=== PATIENT | female | born 1980 | race Caucasian/White ===

== ENCOUNTER → 2016-05-13 | Outpatient (CLI) | payer MEDICARE ==
[~2016-05-13] VITALS: Ht 160 cm; Wt 65.8 kg
[~2016-05-13] MED LIST: D 1010004 PO; DEXI30CA PO; DEXI60CA PO; MELO15TA4 PO; MELO7.5T6 PO; PLAQUENAL OR; PLAQUENIL OR; PROPOFOL 200 MG/20 ML VIAL As Ordered ONE; TIZA2CAP3 PO; TIZA4CAP3 PO; TOPA50TA7 PO; [UNRECOGNIZED DRUG - CODE] PO
[2016-05-13] MEDS: NS 1,000 ML IV SCH ×2 (13:30→13:46)
--- NOTE | 2016-05-13 14:39 | ROOR ---
Patient Name: Tessa Bernard Procedure Date: 05/13/2016 2:22 PM Date of : 1980 Age: 35 Room: M OPP Gender: Female Note Status: Finalized Procedure: Upper GI endoscopy Indications: Nausea Providers: Babatunde LOCKE MD Referring MD: Link Garcia MD Requesting Provider: Medicines: Monitored Anesthesia Care Complications: No immediate complications. Procedure: Pre-Anesthesia Assessment: - The heart rate, respiratory rate, oxygen saturations, blood pressure, adequacy of pulmonary ventilation, and response to care were monitored throughout the procedure. The Endoscope was introduced through the mouth, and advanced to the second part of duodenum. The upper GI endoscopy was accomplished without difficulty. The patient tolerated the procedure well. Findings: The esophagus was normal. The stomach was normal. The examined duodenum was normal. Impression: - Normal esophagus. - Normal stomach. - Normal examined duodenum. - No specimens collected. Recommendation: - for nausea, consider trial on a antihistamine: Benadryl 25 to 50 mg at bedtime. Babatunde Locke MD Babatunde LOCKE MD 05/13/2016 2:39:30 PM This report has been signed electronically. Number of Addenda: 0 Note Initiated On: 05/13/2016 2:22 PM Estimated Blood Loss: Estimated blood loss: none.
--- NOTE | 2016-05-13 14:58 | ROOR ---
Patient Name: Tessa Bernard Procedure Date: 05/13/2016 2:23 PM Date of : 1980 Age: 35 Room: [facility] Gender: Female Note Status: Finalized Procedure: Colonoscopy Indications: Family history of colon cancer in multiple second-degree relatives, Weight loss Providers: Babatunde LOCKE MD Referring MD: Link Garcia MD Requesting Provider: Medicines: Monitored Anesthesia Care Complications: No immediate complications. Procedure: Pre-Anesthesia Assessment: - The heart rate, respiratory rate, oxygen saturations, blood pressure, adequacy of pulmonary ventilation, and response to care were monitored throughout the procedure. The Colonoscope was introduced through the anus and advanced to the cecum, identified by appendiceal orifice and ileocecal valve. The colonoscopy was performed without difficulty. The patient tolerated the procedure well. The quality of the bowel preparation was good. Findings: The perianal and digital rectal examinations were normal. (Exam: Complete, Prep: Good or Excellent.) Small Internal Hemorrhoids. The entire examined colon appeared normal on direct and retroflexion views. Impression: - (Exam: Complete, Prep: Good or Excellent.) - Small Internal Hemorrhoids. - The entire examined colon is normal on direct and retroflexion views. - No specimens collected. Recommendation: - Repeat colonoscopy at age [age] years old. Babatunde Locke MD Babatunde LOCKE MD 05/13/2016 2:57:53 PM This report has been signed electronically. Number of Addenda: 0 Note Initiated On: 05/13/2016 2:23 PM Estimated Blood Loss: Estimated blood loss: none.
[2016-05-13 15:17] VITALS: BP 118/69
== END ==
LOC: M OPP 12:59
PROVIDERS: ATTEND Internal Medicine Gastroenterology
DX: Z12.11 Encounter for screening for malignant neoplasm of colon (principal); Z80.0 Family history of malignant neoplasm of digestive organs; K64.0 First degree hemorrhoids; R63.4 Abnormal weight loss; R12 Heartburn; R11.2 Nausea with vomiting, unspecified; M32.9 Systemic lupus erythematosus, unspecified; G43.909 Migraine, unspecified, not intractable, without status migrainosus; K21.9 Gastro-esophageal reflux disease without esophagitis; Z86.018 Personal history of other benign neoplasm; Z88.8 Allergy status to other drugs, medicaments and biological substances; Z79.1 Long term (current) use of non-steroidal anti-inflammatories (NSAID); Z79.899 Other long term (current) drug therapy; Z80.42 Family history of malignant neoplasm of prostate; F17.200 Nicotine dependence, unspecified, uncomplicated
CPT/HCPCS: 43235; G0105

== ENCOUNTER → 2016-07-14 | Outpatient (REF) | payer MEDICARE, MEDICAID ==
[~2016-07-14] MED LIST changes: -PROPOFOL 200 MG/20 ML VIAL As Ordered ONE
[2016-07-14 13:49] LABS: BASO % 0.6 % (0.0-1.0); EOS # 0.3 K/mm3 (0.0-0.50); EOS % 3.2 % (0.0-3.0); LARGE UNSTAINED CELL # 0.1 K/mm3 (0.0-0.4); LARGE UNSTAINED CELL % 1.5 % (0.0-4.0); LYMPH # 1.6 K/mm3 (1.5-4.5); LYMPH % 16.7 % (24.0-44.0); MEAN CORPUSCULAR HGB CONC 33.1 g/dl (32.0-36.5); MEAN CORPUSCULAR VOLUME 84.6 fl (80.0-96.0); MONO # 0.5 K/mm3 (0.0-0.8); MONO % 5.7 % (0.0-5.0); NEUTROPHILS # 6.2 K/mm3 (1.8-7.7); NEUTROPHILS % 72.3 % (36.0-66.0); PLATELET COUNT, AUTOMATED 231 k/mm3 (150-450); RED CELL DISTRIBUTION WIDTH 13.2 % (11.5-14.5); WHITE BLOOD COUNT 8.6 K/mm3 (4.0-10.0)
[2016-07-14 14:00] LABS: ALBUMIN 3.8 GM/DL (3.2-5.2); ALBUMIN/GLOBULIN RATIO 1.36 (1.00-1.93); ALKALINE PHOSPHATASE 54 U/L (45-117); ALT/SGPT 15 U/L (12-78); ANION GAP 10 MEQ/L (8-16); AST/SGOT 10 U/L (15-37); BILIRUBIN,TOTAL 0.4 MG/DL (0.2-1.0); BLOOD UREA NITROGEN 17 MG/DL (7-18); CALCIUM LEVEL 8.9 MG/DL (8.5-10.1); CARBON DIOXIDE LEVEL 24 MEQ/L (21-32); CHLORIDE LEVEL 109 MEQ/L (98-107); CREATININE FOR GFR 0.86 MG/DL (0.55-1.02); GLOMERULAR FILTRATION RATE > 60.0 (>60); GLUCOSE, FASTING 64 MG/DL (70-105); POTASSIUM SERUM 3.8 MEQ/L (3.5-5.1); SODIUM LEVEL 143 MEQ/L (136-145); TOTAL PROTEIN 6.6 GM/DL (6.4-8.2)
[2016-07-14 14:52] LABS: ERYTHROCYTE SEDIMENTATION RATE 3 mm/hr (0-20)
== END ==
LOC: M SFHCPLAZ 10:58
PROVIDERS: ATTEND Family Medicine
DX: M32.9 Systemic lupus erythematosus, unspecified (principal)
CPT/HCPCS: 36415; 80053; 85025; 85652; 86140; G0463

== ENCOUNTER 2016-08-20 23:11 | Observation (INO) | payer MEDICAID, MEDICARE ==
[~2016-08-20] VITALS: Ht 162.6 cm; Wt 68.0 kg
[2016-08-20] MEDS ORDERED: CEPH500C (23:38)
[2016-08-20] MEDS ORDERED: HYDR200T3 (23:38)
[2016-08-20] MEDS ORDERED: HYDR-3713 (23:38)
[2016-08-21] MEDS ORDERED: GI COCKTAIL 50ML BTL(HYOSCYAMINE/MAALOX/LIDOCAINE VISCOUS)(1:3:1) PO ONE (01:00)
[2016-08-21 01:23] LABS: CONTROL LINE HCG INT CTR LINE PRESENT
[2016-08-21 01:26] LABS: BASO # 0.1 K/mm3 (0.0-0.2); EOS # 0.6 K/mm3 (0.0-0.50); EOS % 7.6 % (0.0-3.0); LARGE UNSTAINED CELL # 0.2 K/mm3 (0.0-0.4); LYMPH # 2.6 K/mm3 (1.5-4.5); LYMPH % 31.6 % (24.0-44.0); MEAN CORPUSCULAR HEMOGLOBIN 27.3 pg (27.0-33.0); MEAN CORPUSCULAR HGB CONC 32.8 g/dl (32.0-36.5); MEAN CORPUSCULAR VOLUME 83.2 fl (80.0-96.0); MONO # 0.5 K/mm3 (0.0-0.8); MONO % 6.3 % (0.0-5.0); NEUTROPHILS % 51.5 % (36.0-66.0); PLATELET COUNT, AUTOMATED 243 k/mm3 (150-450); WHITE BLOOD COUNT 7.8 K/mm3 (4.0-10.0)
[2016-08-21 01:32] LABS: ANION GAP 7 MEQ/L (8-16); BLOOD UREA NITROGEN 17 MG/DL (7-18); CALCIUM LEVEL 8.8 MG/DL (8.5-10.1); CARBON DIOXIDE LEVEL 26 MEQ/L (21-32); CHLORIDE LEVEL 107 MEQ/L (98-107); CREATININE FOR GFR 0.87 MG/DL (0.55-1.02); GLOMERULAR FILTRATION RATE > 60.0 (>60); GLUCOSE, FASTING 87 MG/DL (70-105); POTASSIUM SERUM 4.2 MEQ/L (3.5-5.1); SODIUM LEVEL 140 MEQ/L (136-145)
--- NOTE | 2016-08-21 02:25 | REP ---
Clinical: Chest pain . Comparison: None . Technique: PA and lateral. Findings: The mediastinum and cardiac silhouette are normal. The lung wong are clear and without acute consolidation, effusion, or pneumothorax. The skeletal structures are intact and normal. Impression: 1. No acute cardiopulmonary process. Signed by Chaim Adrian MD 08/21/2016 02:16 A
[2016-08-21] MEDS ORDERED: MORPHINE 4 MG/ML 1ML SYRINGE IV PRN (02:30)
[2016-08-21] MEDS ORDERED: ONDANSETRON 4MG/2ML VIAL (J2405) IV ONE (02:30)
[2016-08-21] MEDS ORDERED: ASPIRIN 81 MG CHEW TABLET PO ONE (02:30)
[2016-08-21] MEDS ORDERED: KETOROLAC 30 MG/ML VIAL (J1885) IV ONE (03:15)
[2016-08-21] MEDS ORDERED: NITROGLYCERIN 0.4 MG SUBL TABLET SL PRN (03:15)
[2016-08-21] MEDS ORDERED: ISOVUE-370 76% 100ML VIAL (Q9967) As Ordered ONE (03:35)
[2016-08-21] MEDS: HYDROmorphone HCL 1 MG/ML SYRINGE (J1170) IV PRN ×2 (03:39→08:25)
--- NOTE | 2016-08-21 04:20 | REPUSA ---
CLINICAL HISTORY: Dyspnea, exclude PE. TECHNIQUE: Multiple incremental axial, coronal and oblique images are obtained from the thoracic inle t to the upper abdomen. Intravenous contrast material was administered as per pulmonary embolism prot ocol. COMMENTS: There is excellent opacification of pulmonary arterial system without evidence for pulmonary embolism . Aorta is of normal caliber without evidence for dissection or aneurysm. Bilateral basilar atelectatic pulmonary changes. There is no evidence of pleural or parenchymal mass. There are no pleural effusions. There is no evid ence of hilar or mediastinal lymphadenopathy. The heart and great vessels are within normal limits. Images of the upper abdomen demonstrate no evidence of adrenal mass. The bony structures are free of lytic or blastic lesions. Multilevel degenerative changes are seen in volving the visualized thoracolumbar spine. Scattered calcifications are seen involving the aorta and major branches compatible with atherosclero sis. IMPRESSION: No evidence for pulmonary embolism. Bilateral basilar atelectatic pulmonary changes. Thank you for your kind referral of this patient.
--- NOTE | 2016-08-21 04:30 | REPUSA ---
CLINICAL HISTORY: Abdominal pain. TECHNIQUE: Multiple axial, sagittal and coronal CT images were obtained through the abdomen and pelvi s after administration of intravenous contrast material. COMMENTS: Fluid filled small bowels. 1.3 cm enhancing lesion in the right hepatic lobe. Probably a hemangioma. The remaining liver is of uniform attenuation without mass or defect. There is no intra or extrahepat ic biliary ductal dilatation. The spleen is normal. The gallbladder is surgically absent. The pancrea s is of normal contour and attenuation characteristics. There is no evidence of adrenal mass. Both kidneys demonstrate prompt and equal nephrograms. The kidneys are normal in size, shape and conf iguration. There is no evidence of renal or ureteral mass. No renal or ureteral calculi are identifie d. There is no hydroureter or hydronephrosis. No evidence for appendicitis. There is no bowel wall thickening. No evidence for small or large reyna l obstruction. There is no evidence of abdominal ascites or lymphadenopathy. There is no evidence of intrinsic or extrinsic bladder mass. There is no pelvic ascites or lymphadeno marty. Multiple uterine fibroids are noted with the largest measuring 2.6 cm. Left ovarian cysts with the largest measuring 3.2 cm. Images of the lung bases show no evidence of pleural or parenchymal mass. There are no pleural effusi ons. Bilateral basilar atelectatic pulmonary changes. The bony structures are free of lytic or blastic lesions. Multilevel degenerative changes are seen in volving the thoracolumbar spine. Scattered calcifications are seen involving the aorta and major bran ches compatible with atherosclerosis. IMPRESSION: Prior cholecystectomy. Left ovarian cysts. Multiple uterine fibroids. Fluid-filled small bowel suggestive of enteritis. Bilateral basilar atelectatic pulmonary changes. Thank you for your kind referral of this patient.
[2016-08-21] MEDS ORDERED: NORCO, ANEXSIA 5/325MG TABLET (HYDROcodone/ACETAMINOPHEN) PO ONE (07:00)
[2016-08-21] MEDS ORDERED: HYDROmorphone HCL 1 MG/ML SYRINGE (J1170) IV PRN (08:30)
[2016-08-21] MEDS ORDERED: ONDANSETRON 4 MG TAB (S0181) PO PRN (08:30)
--- NOTE | 2016-08-21 08:45 | ECGEPIP ---
Stationary ECG Study [facility] - ED Test Date: 2016-08-20 Pat Name: TOMY MONROY Department: Room: - Gender: F [employer]iculture Teacher: diego : 1980 Requested By: YECENIA Ann Order Number: [id number] Reading MD: Jenn Maddox Measurements Intervals [place] Rate: 62 P: 37 VA: 156 QRS: 80 QRSD: 79 T: 45 QT: 414 QTc: 421 Interpretive Statements SINUS RHYTHM NO PRIOR FOR COMPARISON Electronically Signed On 08-21-2016 8:45:03 EDT by Jenn Maddox
[2016-08-21] MEDS ORDERED: TOPA50TA7 PO (08:52)
[2016-08-21] MEDS ORDERED: NORC1TAB4 PO (08:52)
[2016-08-21] MEDS ORDERED: TIZA2TA PO (08:52)
[2016-08-21] MEDS ORDERED: HYDR200T3 PO (08:52)
[2016-08-21] MEDS ORDERED: VITA500055 PO (08:52)
[2016-08-21] MEDS ORDERED: TYLE325T5 PO (08:52)
[2016-08-21] MEDS ORDERED: MELO15TA4 PO (08:52)
[2016-08-21] MEDS ORDERED: DEXI60CA PO (08:52)
[2016-08-21] MEDS ORDERED: [UNRECOGNIZED DRUG - CODE] TOP (08:54)
[2016-08-21] MEDS: PANTOPRAZOLE 40MG TAB (PROTONIX) PO SCH (09:24)
[2016-08-21] MEDS ORDERED: ACETAMINOPHEN 325 MG TAB As Ordered ONE (12:26)
[2016-08-21] MEDS: ACETAMINOPHEN 500 MG TAB PO PRN ×2 (12:29→18:50)
[2016-08-21 14:15] VITALS: BP 130/78
[2016-08-21 16:00] VITALS: BP 137/81
--- NOTE | 2016-08-21 16:14 | HPEPDOC ---
General Date of Admission Aug 21, 2016 at 08:17 Primary Care Physician: Link Garcia M.D. Attending Physician: CORRINA ALBERTS MD Chief Complaint The patient is a 35-year-old female admitted with a reason for visit of Intractable Abdominal Pain. Source: Patient Exam Limitations: No limitations Timing/Duration: 4-6 hours Severity: Moderate (6/10) Associated Symptoms: Nausea History of Present Illness Ms. Bernard is a 35 year-old woman with a history of Lupus and GERD who presented to the ED yesterday evening with sharp left chest pain. She states pain started suddenly at 9:30 pm while she was sitting on the cough watching TV. It was accompanied by left arm tingling and numbness; she denies any associated SOB or diaphoresis. She presented to the ED where she received a GI cocktail that did not help her pain. The ED physician reported to me that she had some chest tenderness to palpation. She was then given a 2 mg dose of morphine, which she states reduced her chest pain from a 6/10 to a 2/10. However, shortly thereafter she developed severe upper abdominal pain that is sharp and stabbing nature, and was accompanied by nausea. She denies any abdominal complaints prior to this. She denies vomiting or diarrhea. She has one formed bowel movement daily and denies any recent blood in stool or black tarry stools. She had an EGD in 05/2016 that was normal. Pain improved with a dose of dilaudid but did not go away completely. She denies loss of appetite. She takes vicodin at home infrequently for migraines and back pain; she states she takes this once every few months. She denies any sick contacts. At the time of my exam, her chest pain had resolved completely. Home Medications Scheduled (Dexilant) 60 Mg Cap 60 MG PO QHS (Reported) Cholecalciferol (Vitamin D3) 5,000 Unit Tab 5,000 UNIT PO DAILY (Reported) Hydroxychloroquine Sulfate (Hydroxychloroquine Sulfat) 200 Mg Tab 200 MG PO BID (Reported) Meloxicam (Meloxicam) 15 Mg Tab 15 MG PO DAILY (Reported) Tizanidine HCl (Tizanidine HCl) 2 Mg Tab 2 MG PO TID (Reported) Topiramate (Topamax) 50 Mg Tab 50 MG PO BID (Reported) Scheduled PRN Acetaminophen (Tylenol) 325 Mg Tab 650 MG PO Q4H PRN PRN PAIN (Reported) Acetaminophen/Hydrocodone ([place] 5-325 mg) 1 Tab Tab 1 TAB PO Q6H PRN PRN PAIN ( Reported) Mometasone Furoate ([place]) 0.1 % Cre 0.1 % TOP BID PRN PRN RASH (Reported) Allergies Coded Allergies: Prochlorperazine (Unverified Adverse Reaction, Unknown, RASH, 08/20/16) Past Medical History Medical History 1. SLE an Sjogren's syndrome 2. GERD and hiatal hernia seen on EGD 10/2015; negative EGD 05/2016 3. Migraine headaches 4. History of left acoustic neuroma 5. History of dense right eye amblyopia 6. History of Tobacco use disorder, quit 07/2016 7. Liver hemangiomae 8. Cervical, thoracic, lumbar DJD Surgical History 1. Resection of acoustic neuroma, ~2011 2. Cholecystectomy ~2011 3. Eye muscle resection x2 4. EGD/colonoscopy normal 05/2016 Family History Significant Family History: Diabetes (father), Other (thalassemia in father) Social History * Smoker: former Smoker, quit less than 1 year Alcohol: occationally (2-3 drinks per sitting, 1-2 times per month) Drugs: denies Recent Travel/Sick Contacts: Denies: Recent sick contacts, Recent travel Psychosocial History: No pertinent psych hx Review of Symptoms Constitutional: Reports: Fatigue, Denies: Chills, Fever, Malaise Eyes: Denies: Pain, Vision change ENT: Denies: Ear Pain, Head Aches Skin: Denies: Rash Pulmonary: Denies: Cough, Dyspnea Cardiovascular: Denies: Chest Pain, Lt Headedness, Orthopnea, Palpitations Gastrointestinal: Reports: Abdominal Pain, Nausea, Denies: Constipation, Diarrhea, Vomiting Genitourinary: Denies: Dysuria, Frequency Hematologic: Denies: Bleeding Excessively, Bruising Musculoskeletal: Reports: Back Pain (chronic) Neurological: Denies: Change in speech, Confusion, Numbness, Weakness Psych: Reports: Mood Normal Physical Examination General Exam: Positive: Alert, Cooperative, No Acute Distress Eye Exam: Positive: Conjunctiva & lids normal, Other Eye Symptoms (right eye exotropia) ENT Exam: Positive: Atraumatic, Mucous membr. moist/pink Neck Exam: Positive: Supple, Negative: JVD Chest Exam: Positive: Clear to auscultation, Normal air movement Heart Exam: Positive: Normal S1, Normal S2, Rate Normal, Regular Rhythm, Negative: Murmurs Abdomen Exam: Positive: Normal bowel sounds, Soft, Tenderness (diffuse tenderness across entire upper abdomen; no rebound, no guarding), Negative: Hepatospenomegaly, Mass Extremity Exam: Negative: Clubbing, Cyanosis, Edema Skin Exam: Negative: Nl turgor and temperature, Rash Neuro Exam: Positive: Normal Speech, Normal Tone, Sensation Intact, Strength at 5/5 X4 ext, Negative: Cranial Nerves 3-12 NL (left mouth droop which is chronic per patient) Psych Exam: Positive: Mental status NL, Mood NL Vital Signs Vital Signs Date Time Temp Pulse Resp B/P Pulse Ox O2 Delivery O2 Flow Rate FiO2 08/21/16 14:15 98.0 69 18 130/78 99 Room Air Laboratory Data Labs 24H Laboratory Tests 2 08/21/16 00:47: Anion Gap 7L, White Blood Count 7.8, Red Blood Count 4.90, Hemoglobin 13.4, Hematocrit 40.8, Mean Corpuscular Volume 83.2, Mean Corpuscular Hemoglobin 27.3 , Mean Corpuscular Hemoglobin Concent 32.8, Red Cell Distribution Width 13.0, Platelet Count 243, Neutrophils (%) (Auto) 51.5, Lymphocytes (%) (Auto) 31.6, Monocytes (%) (Auto) 6.3H, Eosinophils (%) (Auto) 7.6H, Basophils (%) (Auto) 1.0 , Neutrophils # (Auto) 4.0, Lymphocytes # (Auto) 2.6, Monocytes # (Auto) 0.5, Eosinophils # (Auto) 0.6H, Basophils # (Auto) 0.1, Blood Urea Nitrogen 17, Creatinine 0.87, Sodium Level 140, Potassium Level 4.2, Chloride Level 107, Carbon Dioxide Level 26, Calcium Level 8.8, Total Creatine Kinase 116, Creatine Kinase MB 1.0, Creatine Kinase MB Relative Index 0.86, Glomerular Filtration Rate > 60.0, Human Chorionic Gonadotropin, Qual NEGATIVE, Large Unclassified Cells # 0.2, Large Unclassified Cells % 2.0, Lipase 221, Troponin I < 0.02 08/21/16 05:02: Total Creatine Kinase 90, Creatine Kinase MB 1.0, Creatine Kinase MB Relative Index 1.11, Troponin I < 0.02 CBC/BMP Laboratory Tests 08/21/16 00:47 Calcium Level 8.8, Total Creatine Kinase 116, Red Blood Count 4.90, Mean Corpuscular Volume 83.2, Mean Corpuscular Hemoglobin 27.3, Mean Corpuscular Hemoglobin Concent 32.8, Red Cell Distribution Width 13.0, Neutrophils (%) (Auto ) 51.5, Lymphocytes (%) (Auto) 31.6, Monocytes (%) (Auto) 6.3 H, Eosinophils (% ) (Auto) 7.6 H, Basophils (%) (Auto) 1.0, Neutrophils # (Auto) 4.0, Lymphocytes # (Auto) 2.6, Monocytes # (Auto) 0.5, Eosinophils # (Auto) 0.6 H, Basophils # ( Auto) 0.1 RAD Interpretation STUDY: CT abdomen/pelvis Rad Actions: Report Reviewed RAD Interpretation: Normal Problems (1) Intractable abdominal pain Status: Acute Problem Specific Plan: Monitor Clinically Problem Text: Etiology of pain is uncertain. CT scan of A/P unremarkable except for "Fluid-filled small bowel suggestive of enteritis". Lab workup, including CMP and lipase was normal. Given timing of pain onset directly after receiving morphine, it is possible that this is a drug reaction, in which case I would recommend that we try to avoid opioids. - Allow regular diet as tolerated - Encouraged good fluid hydration - Monitor and recheck labs in the morning. - Hold meloxicam - Acetaminophen for pain (2) Chest pain Status: Resolved Problem Text: Pain resolved while in the ED. EKG and cardiac enzymes x2 were normal. (3) SLE (systemic lupus erythematosus) Status: Chronic Problem Specific Plan: Monitor Clinically Problem Text: Continue home plaquenil. (4) GERD (gastroesophageal reflux disease) Status: Chronic Problem Specific Plan: Monitor Clinically Problem Text: Give protonix 40 [address] PO daily in place of home dexilant. - Note, EGD performed 05/2016 was normal; previous EGD done 10/2015 showed evidence of GERD (5) Migraine Status: Chronic Problem Specific Plan: Monitor Clinically (6) Degenerative joint disease (DJD) of lumbar spine Status: Chronic (7) History of acoustic neuroma Status: Chronic Plan / VTE VTE Prophylaxis Ordered?: Yes (SCD/TEDs) CORRINA ALBERTS MD Aug 21, 2016 16:14
[2016-08-21 19:45] VITALS: BP 108/75
[2016-08-21] MEDS: tiZANidine 4 MG TAB PO SCH (20:33)
[2016-08-21] MEDS: TOPIRAMATE (TopAMAX) 25 MG TAB PO SCH (20:33)
[2016-08-21] MEDS: HYDROXYCHLOROQUINE 200 MG TAB PO SCH (20:33)
[2016-08-22 05:00] VITALS: BP 99/54
[2016-08-22] MEDS: ACETAMINOPHEN 500 MG TAB PO PRN (05:13)
[2016-08-22 07:38] LABS: BASO # 0.1 K/mm3 (0.0-0.2); BASO % 1.4 % (0.0-1.0); EOS # 0.4 K/mm3 (0.0-0.50); EOS % 7.8 % (0.0-3.0); LARGE UNSTAINED CELL # 0.1 K/mm3 (0.0-0.4); LARGE UNSTAINED CELL % 2.3 % (0.0-4.0); LYMPH # 1.5 K/mm3 (1.5-4.5); LYMPH % 24.5 % (24.0-44.0); MEAN CORPUSCULAR HEMOGLOBIN 27.2 pg (27.0-33.0); MEAN CORPUSCULAR HGB CONC 32.3 g/dl (32.0-36.5); MEAN CORPUSCULAR VOLUME 84.1 fl (80.0-96.0); MONO # 0.4 K/mm3 (0.0-0.8); NEUTROPHILS # 3.1 K/mm3 (1.8-7.7); PLATELET COUNT, AUTOMATED 239 k/mm3 (150-450); RED CELL DISTRIBUTION WIDTH 13.1 % (11.5-14.5); WHITE BLOOD COUNT 5.5 K/mm3 (4.0-10.0)
[2016-08-22 08:00] VITALS: BP 115/77
[2016-08-22 08:04] LABS: ALBUMIN 3.3 GM/DL (3.2-5.2); ALBUMIN/GLOBULIN RATIO 1.18 (1.00-1.93); ALKALINE PHOSPHATASE 63 U/L (45-117); ALT/SGPT 107 U/L (12-78); ANION GAP 6 MEQ/L (8-16); AST/SGOT 38 U/L (15-37); BILIRUBIN,TOTAL 0.5 MG/DL (0.2-1.0); BLOOD UREA NITROGEN 15 MG/DL (7-18); CALCIUM LEVEL 8.1 MG/DL (8.5-10.1); CARBON DIOXIDE LEVEL 24 MEQ/L (21-32); CHLORIDE LEVEL 110 MEQ/L (98-107); CREATININE FOR GFR 0.89 MG/DL (0.55-1.02); GLOMERULAR FILTRATION RATE > 60.0 (>60); GLUCOSE, FASTING 98 MG/DL (70-105); POTASSIUM SERUM 4.1 MEQ/L (3.5-5.1); SODIUM LEVEL 140 MEQ/L (136-145); TOTAL PROTEIN 6.1 GM/DL (6.4-8.2)
[2016-08-22] MEDS: PANTOPRAZOLE 40MG TAB (PROTONIX) PO SCH (08:39)
[2016-08-22] MEDS: TOPIRAMATE (TopAMAX) 25 MG TAB PO SCH (08:40)
[2016-08-22] MEDS: HYDROXYCHLOROQUINE 200 MG TAB PO SCH (08:40)
[2016-08-22] MEDS: tiZANidine 4 MG TAB PO SCH (08:41)
== END 2016-08-22 09:10 | disposition home or self-care (01) ==
LOC: M ED 23:14 → M PED 23:15 → M ED 08-21 00:27 → UNDOADMOB 08-21 08:17 → M ED INP 08-21 08:17 → M ED 08-21 14:02 → M ED INP 08-21 14:08 → M PED 08-21 14:08 → UNDODISOB 08-22 09:10
PROVIDERS: ADMIT Family Medicine; ATTEND Family Medicine
DX: R10.11 Right upper quadrant pain (principal); R07.9 Chest pain, unspecified; M32.10 Systemic lupus erythematosus, organ or system involvement unspecified; K21.9 Gastro-esophageal reflux disease without esophagitis; Z87.891 Personal history of nicotine dependence; Z79.899 Other long term (current) drug therapy
CPT/HCPCS: 36415; 71020; 71275; 74177; 80048; 80053; 82550; 82553; 83690; 84484; 84703; 85025; 93005; 93041; 94760; 96374; 96375; 96376; 99285; G0378; J1170; J1885; J2405; Q9967

== ENCOUNTER → 2016-08-28 | Outpatient (REF) | payer MEDICARE, MEDICAID ==
[~2016-08-28] MED LIST changes: +CEPH500C; +HYDR-3713; +HYDR200T3; +HYDR200T3 PO; +NORC1TAB4 PO; +TIZA2TA PO; +TYLE325T5 PO; +VITA500055 PO; +[UNRECOGNIZED DRUG - CODE] TOP
[2016-08-28 13:37] LABS: BASO # 0.1 K/mm3 (0.0-0.2); BASO % 1.3 % (0.0-1.0); EOS # 0.2 K/mm3 (0.0-0.50); EOS % 3.8 % (0.0-3.0); LARGE UNSTAINED CELL # 0.1 K/mm3 (0.0-0.4); LARGE UNSTAINED CELL % 1.6 % (0.0-4.0); LYMPH # 1.2 K/mm3 (1.5-4.5); LYMPH % 18.7 % (24.0-44.0); MEAN CORPUSCULAR HGB CONC 32.9 g/dl (32.0-36.5); MEAN CORPUSCULAR VOLUME 85.2 fl (80.0-96.0); MONO # 0.4 K/mm3 (0.0-0.8); MONO % 6.4 % (0.0-5.0); NEUTROPHILS # 4.5 K/mm3 (1.8-7.7); NEUTROPHILS % 68.2 % (36.0-66.0); PLATELET COUNT, AUTOMATED 272 k/mm3 (150-450); WHITE BLOOD COUNT 6.5 K/mm3 (4.0-10.0)
[2016-08-28 14:21] LABS: ALBUMIN 3.9 GM/DL (3.2-5.2); ALBUMIN/GLOBULIN RATIO 1.26 (1.00-1.93); ALKALINE PHOSPHATASE 57 U/L (45-117); ALT/SGPT 35 U/L (12-78); AST/SGOT 10 U/L (15-37); BILIRUBIN,DIRECT 0.1 MG/DL (0.0-0.2); BILIRUBIN,TOTAL 0.4 MG/DL (0.2-1.0)
[2016-09-01 10:11] LABS: HEPATITIS C QUANTITATION HCV Not Detected IU/mL (.)
== END ==
LOC: M SFHCPLAZ 11:04
PROVIDERS: ATTEND Physician Assistant Medical
DX: K52.9 Noninfective gastroenteritis and colitis, unspecified (principal)

== ENCOUNTER → 2016-09-11 | Outpatient (REF) | payer MEDICARE, MEDICAID | LOC: M SFHCPLAZ 11:21 | PROVIDERS: ATTEND Physician Assistant Medical | DX: K52.9 Noninfective gastroenteritis and colitis, unspecified (principal) | CPT/HCPCS: 86709; G0463 ==

== ENCOUNTER → 2016-10-21 | Outpatient (REF) | payer MEDICARE, MEDICAID ==
[2016-10-21 14:56] LABS: BASO # 0.1 K/mm3 (0.0-0.2); EOS # 0.3 K/mm3 (0.0-0.50); EOS % 4.6 % (0.0-3.0); LARGE UNSTAINED CELL # 0.1 K/mm3 (0.0-0.4); LARGE UNSTAINED CELL % 1.9 % (0.0-4.0); LYMPH # 1.4 K/mm3 (1.5-4.5); LYMPH % 21.3 % (24.0-44.0); MEAN CORPUSCULAR HEMOGLOBIN 27.5 pg (27.0-33.0); MEAN CORPUSCULAR HGB CONC 32.4 g/dl (32.0-36.5); MEAN CORPUSCULAR VOLUME 84.8 fl (80.0-96.0); MONO # 0.4 K/mm3 (0.0-0.8); MONO % 5.8 % (0.0-5.0); NEUTROPHILS # 3.9 K/mm3 (1.8-7.7); NEUTROPHILS % 65.4 % (36.0-66.0); PLATELET COUNT, AUTOMATED 260 k/mm3 (150-450); RED CELL DISTRIBUTION WIDTH 13.3 % (11.5-14.5)
[2016-10-21 15:05] LABS: ANION GAP 5 MEQ/L (8-16); BLOOD UREA NITROGEN 14 MG/DL (7-18); CALCIUM LEVEL 8.8 MG/DL (8.5-10.1); CARBON DIOXIDE LEVEL 25 MEQ/L (21-32); CHLORIDE LEVEL 111 MEQ/L (98-107); GLOMERULAR FILTRATION RATE > 60.0 (>60); GLUCOSE, FASTING 87 MG/DL (70-105); POTASSIUM SERUM 4.5 MEQ/L (3.5-5.1); SODIUM LEVEL 141 MEQ/L (136-145)
== END ==
LOC: M SFHCPLAZ 09:38
PROVIDERS: ATTEND Physician Assistant Medical
DX: B34.9 Viral infection, unspecified (principal)

== ENCOUNTER 2016-10-29 01:18 | Emergency (ER) | payer MEDICARE, MEDICAID ==
[~2016-10-29] VITALS: Ht 165.1 cm; Wt 72.0 kg
[~2016-10-29 01:18] MED LIST changes: +D32000CA PO; -DEXI30CA PO; +DEXI30CA2 PO; -DEXI60CA PO; +DEXI60CA2 PO; -MELO7.5T6 PO; +MELO7.5T7 PO; -TOPA50TA7 PO; +TOPA50TA8 PO; -[UNRECOGNIZED DRUG - CODE] PO
[2016-10-29 01:21] VITALS: BP 119/74
[2016-10-29] MEDS ORDERED: NS 1,000 ML IV ONE (02:00)
--- NOTE | 2016-10-29 03:00 | REPUSA ---
CLINICAL HISTORY: Edema. COMMENTS: Real time sonography with duplex doppler of the left lower extremity was performed with attention to the major deep venous structures. Evaluation reveals the left common femoral, superficial femoral and popliteal veins to be completely compressible without intraluminal thrombus. There is normal spontaneous phasic flow and augmentation. The greater saphenous/common femoral vein junction is patent. IMPRESSION: No evidence of DVT in left lower extremity.. Thank you for your kind referral of this patient.
[2016-10-29 03:12] LABS: ANION GAP 8 MEQ/L (8-16); BLOOD UREA NITROGEN 17 MG/DL (7-18); CALCIUM LEVEL 9.6 MG/DL (8.5-10.1); CARBON DIOXIDE LEVEL 24 MEQ/L (21-32); CHLORIDE LEVEL 109 MEQ/L (98-107); CREATININE FOR GFR 0.93 MG/DL (0.55-1.02); GLOMERULAR FILTRATION RATE > 60.0 (>60); GLUCOSE, FASTING 91 MG/DL (70-105); MAGNESIUM LEVEL 2.1 MG/DL (1.8-2.4); SODIUM LEVEL 141 MEQ/L (136-145)
== END 2016-10-29 03:30 | disposition home or self-care (01) ==
LOC: M ED 01:18
DX: R25.2 Cramp and spasm (principal); G43.909 Migraine, unspecified, not intractable, without status migrainosus; D68.62 Lupus anticoagulant syndrome; G89.29 Other chronic pain; M54.9 Dorsalgia, unspecified; R10.9 Unspecified abdominal pain; Z79.899 Other long term (current) drug therapy; Z88.8 Allergy status to other drugs, medicaments and biological substances; Z87.891 Personal history of nicotine dependence

== ENCOUNTER 2017-02-22 19:47 | Emergency (ER) | payer MEDICARE, MEDICAID ==
[~2017-02-22] VITALS: Ht 165.1 cm; Wt 65.9 kg
[2017-02-22 19:48] VITALS: BP 136/83
[2017-02-22] MEDS ORDERED: Plaquenil PO (20:02)
[2017-02-22] MEDS ORDERED: TRAM50TA2 PO (21:45)
[2017-02-22] MEDS ORDERED: ONDANSETRON 4 MG TAB (S0181) PO ONE (22:00)
[2017-02-22] MEDS ORDERED: traMADol 50 MG TAB PO ONE (22:00)
--- NOTE | 2017-02-23 07:48 | REP ---
Right foot four views : There is no fracture or dislocation. Mineralization and joint spaces are normal. There are no calcifications or foreign bodies. Impression: Negative right foot. No change from 10/15/2014. . Signed by Yfn Mauro MD 02/23/2017 07:39 A
== END 2017-02-22 22:03 | disposition home or self-care (01) ==
LOC: M ED 19:47
DX: S93.411A Sprain of calcaneofibular ligament of right ankle, initial encounter (principal); S93.611A Sprain of tarsal ligament of right foot, initial encounter; W19.XXXA Unspecified fall, initial encounter; Y92.099 Unspecified place in other non-institutional residence as the place of occurrence of the external cause; Y93.89 Activity, other specified; Y99.9 Unspecified external cause status

== ENCOUNTER 2017-04-09 21:43 | Emergency (ER) | payer MEDICARE, MEDICAID ==
[~2017-04-09] VITALS: Ht 157.5 cm; Wt 77.3 kg
[~2017-04-09 21:43] MED LIST changes: +Plaquenil PO; +TRAM50TA2 PO
[2017-04-09] MEDS ORDERED: NS 1,000 ML IV SCH (21:49)
[2017-04-09] MEDS ORDERED: PEPC1TAB2 PO (21:58)
[2017-04-09 22:00] LABS: BASO # 0.1 10^3/uL (0.0-0.2); BASO % 0.7 % (0.0-1.0); EOS # 0.2 10^3/uL (0.0-0.50); EOS % 1.6 % (0.0-3.0); IMMATURE GRANULOCYTE % 0.4 % (0-0); LYMPH # 2.3 10^3/uL (1.5-4.5); LYMPH % 21.8 % (24.0-44.0); MEAN CORPUSCULAR HEMOGLOBIN 26.5 pg (27.0-33.0); MEAN CORPUSCULAR HGB CONC 32.9 g/dl (32.0-36.5); MEAN CORPUSCULAR VOLUME 80.4 fl (80.0-96.0); MONO # 0.9 10^3/uL (0.0-0.8); MONO % 8.5 % (0.0-5.0); PLATELET COUNT, AUTOMATED 278 10^3/uL (150-450); RED CELL DISTRIBUTION WIDTH 13.2 % (11.5-14.5); WHITE BLOOD COUNT 10.4 10^3/uL (4.0-10.0)
[2017-04-09] MEDS ORDERED: ONDANSETRON 4MG/2ML VIAL (J2405) IV ONE (22:00)
[2017-04-09] MEDS ORDERED: KETOROLAC 30 MG/ML VIAL (J1885) IV ONE (22:00)
[2017-04-09 22:16] LABS: CONTROL LINE HCG INT CTR LINE PRESENT
[2017-04-09 22:24] LABS: ALBUMIN 3.8 GM/DL (3.2-5.2); ALKALINE PHOSPHATASE 69 U/L (45-117); ALT/SGPT 25 U/L (12-78); ANION GAP 7 MEQ/L (8-16); AST/SGOT 13 U/L (7-37); BILIRUBIN,DIRECT < 0.1 MG/DL (0.0-0.2); BILIRUBIN,TOTAL 0.3 MG/DL (0.2-1.0); BLOOD UREA NITROGEN 19 MG/DL (7-18); CALCIUM LEVEL 8.3 MG/DL (8.5-10.1); CARBON DIOXIDE LEVEL 25 MEQ/L (21-32); CHLORIDE LEVEL 108 MEQ/L (98-107); CREATININE FOR GFR 1.49 MG/DL (0.55-1.02); GLOMERULAR FILTRATION RATE 41.9 (>60); GLUCOSE, FASTING 88 MG/DL (70-105); POTASSIUM SERUM 3.4 MEQ/L (3.5-5.1); SODIUM LEVEL 140 MEQ/L (136-145); TOTAL PROTEIN 7.6 GM/DL (6.4-8.2)
--- NOTE | 2017-04-09 23:30 | REPUSA ---
CT of the abdomen and pelvis without contrast Clinical statement: Pain. Technique: Multiple axial CT images were obtained from the base of the lungs to the floor of the pelv is utilizing 5 mm axial slices without administration of contrast. Coronal and sagittal reconstructio ns were also obtained. Comparison: 08/21/2016. Findings: Chest: The visualized lung bases are clear. Abdomen: The kidneys are normal in size bilaterally. There is a 4 mm obstructing stone in the proxima l right ureter causing mild right-sided hydronephrosis. Several tiny stones are seen in the right kid sunday as well. There is no evidence of left-sided hydronephrosis or nephrolithiasis. The liver, spleen, pancreas, and adrenal glands are unremarkable. The aorta demonstrates normal caliber and contour. Th ere is no abdominal lymphadenopathy or ascites. Pelvis: The bowel is unremarkable, with no obstructive or inflammatory changes. The appendix is sarah l. The urinary bladder is within normal limits. There is no pelvic lymphadenopathy or ascites. There are large bilateral ovarian cysts. The right cyst measures 3.5 x 4.0 cm, and the left cyst measures 3 .8 x 2.9 cm. The other pelvic structures appear unremarkable. Bones: There are no suspicious osseous abnormalities seen. Impression: 1. Minimal right-sided hydronephrosis caused by 4 mm stone in the proximal right ureter. Nonobstructi ng right renal nephrolithiasis is also seen. The left renal collecting system is unremarkable. 2. No obstructive or inflammatory bowel changes. 3. Large bilateral simple ovarian cysts.
[2017-04-09] MEDS ORDERED: ZOFR4TAB3 PO (23:32)
[2017-04-09 23:37] VITALS: BP 105/58
== END 2017-04-09 23:47 | disposition home or self-care (01) ==
LOC: M ED 21:43 → EDBD 21:43 → M ED 23:47
DX: N20.1 Calculus of ureter (principal); N83.201 Unspecified ovarian cyst, right side; N83.202 Unspecified ovarian cyst, left side; D68.62 Lupus anticoagulant syndrome; G43.909 Migraine, unspecified, not intractable, without status migrainosus; D33.3 Benign neoplasm of cranial nerves; Z79.899 Other long term (current) drug therapy; Z88.5 Allergy status to narcotic agent; Z88.8 Allergy status to other drugs, medicaments and biological substances
CPT/HCPCS: 74176; 80048; 80076; 81001; 83690; 84703; 85025; 87086; 96374; 96375; 99284; J1885; J2405

== ENCOUNTER → 2017-04-10 | Outpatient (REF) | payer MEDICARE, MEDICAID ==
[~2017-04-10] MED LIST changes: +BACT800T5 PO; +FLOM5CAP PO; +PEPC1TAB2 PO; +ZOFR4TAB3 PO
[2017-04-10 13:02] LABS: BASO # 0.1 10^3/uL (0.0-0.2); BASO % 0.9 % (0.0-1.0); EOS # 0.1 10^3/uL (0.0-0.50); EOS % 1.1 % (0.0-3.0); IMMATURE GRANULOCYTE % 0.4 % (0-0); LYMPH # 1.6 10^3/uL (1.5-4.5); LYMPH % 16.5 % (24.0-44.0); MEAN CORPUSCULAR HEMOGLOBIN 26.8 pg (27.0-33.0); MEAN CORPUSCULAR HGB CONC 33.1 g/dl (32.0-36.5); MEAN CORPUSCULAR VOLUME 80.9 fl (80.0-96.0); MONO # 0.9 10^3/uL (0.0-0.8); NEUTROPHILS % 72.1 % (36.0-66.0); PLATELET COUNT, AUTOMATED 277 10^3/uL (150-450); RED CELL DISTRIBUTION WIDTH 13.2 % (11.5-14.5); WHITE BLOOD COUNT 9.8 10^3/uL (4.0-10.0)
[2017-04-10 13:18] LABS: ALBUMIN 3.5 GM/DL (3.2-5.2); ANION GAP 10 MEQ/L (8-16); BLOOD UREA NITROGEN 18 MG/DL (7-18); CALCIUM LEVEL 8.2 MG/DL (8.5-10.1); CARBON DIOXIDE LEVEL 24 MEQ/L (21-32); CHLORIDE LEVEL 106 MEQ/L (98-107); CREATININE FOR GFR 1.06 MG/DL (0.55-1.02); GLOMERULAR FILTRATION RATE > 60.0 (>60); GLUCOSE, FASTING 81 MG/DL (70-105); PHOSPHORUS LEVEL 2.3 MG/DL (2.5-4.9); POTASSIUM SERUM 3.8 MEQ/L (3.5-5.1); SODIUM LEVEL 140 MEQ/L (136-145)
== END ==
LOC: M SFHCPLAZ 11:03
PROVIDERS: ATTEND Family Medicine
DX: N20.0 Calculus of kidney (principal)

== ENCOUNTER 2017-04-12 06:16 | Emergency (ER) | payer MEDICARE, MEDICAID ==
[~2017-04-12] VITALS: Ht 160 cm; Wt 78.6 kg
[~2017-04-12 06:16] MED LIST changes: -BACT800T5 PO; -FLOM5CAP PO
[2017-04-12] MEDS ORDERED: FLOM5CAP PO (06:22)
[2017-04-12 07:30] LABS: BASO % 0.6 % (0.0-1.0); EOS # 0.2 10^3/uL (0.0-0.50); EOS % 2.6 % (0.0-3.0); IMMATURE GRANULOCYTE % 0.2 % (0-0); LYMPH # 1.7 10^3/uL (1.5-4.5); LYMPH % 25.1 % (24.0-44.0); MEAN CORPUSCULAR HEMOGLOBIN 26.7 pg (27.0-33.0); MEAN CORPUSCULAR HGB CONC 32.8 g/dl (32.0-36.5); MEAN CORPUSCULAR VOLUME 81.4 fl (80.0-96.0); MONO # 0.5 10^3/uL (0.0-0.8); MONO % 7.7 % (0.0-5.0); NEUTROPHILS # 4.3 10^3/uL (1.8-7.7); NEUTROPHILS % 63.8 % (36.0-66.0); PLATELET COUNT, AUTOMATED 239 10^3/uL (150-450); RED CELL DISTRIBUTION WIDTH 13.2 % (11.5-14.5); WHITE BLOOD COUNT 6.7 10^3/uL (4.0-10.0)
[2017-04-12] MEDS ORDERED: KETOROLAC 30 MG/ML VIAL (J1885) IV ONE (07:30)
[2017-04-12] MEDS ORDERED: ONDANSETRON 4MG/2ML VIAL (J2405) IV ONE (07:30)
[2017-04-12] MEDS ORDERED: NS 1,000 ML IV ONE (07:30)
[2017-04-12 07:43] LABS: CONTROL LINE HCG INT CTR LINE PRESENT
[2017-04-12 07:50] LABS: ALBUMIN 3.2 GM/DL (3.2-5.2); ALBUMIN/GLOBULIN RATIO 0.94 (1.00-1.93); ALKALINE PHOSPHATASE 63 U/L (45-117); ALT/SGPT 23 U/L (12-78); ANION GAP 7 MEQ/L (8-16); AST/SGOT 11 U/L (7-37); BILIRUBIN,DIRECT < 0.1 MG/DL (0.0-0.2); BILIRUBIN,TOTAL 0.4 MG/DL (0.2-1.0); BLOOD UREA NITROGEN 13 MG/DL (7-18); CALCIUM LEVEL 8.4 MG/DL (8.5-10.1); CARBON DIOXIDE LEVEL 23 MEQ/L (21-32); CHLORIDE LEVEL 109 MEQ/L (98-107); GLOMERULAR FILTRATION RATE > 60.0 (>60); GLUCOSE, FASTING 87 MG/DL (70-105); POTASSIUM SERUM 3.7 MEQ/L (3.5-5.1); SODIUM LEVEL 139 MEQ/L (136-145); TOTAL PROTEIN 6.6 GM/DL (6.4-8.2)
[2017-04-12] MEDS ORDERED: BACT800T5 PO (08:49)
[2017-04-12 08:58] VITALS: BP 119/74
--- NOTE | 2017-04-12 09:50 | REP ---
REASON: Right flank pain. COMPARISON: 04/09/2017, three days ago which showed a 4 mm sized calculus in the proximal right ureter causing slight right sided hydronephrosis and suspected bilateral ovarian cysts. The lung bases are clear and unchanged. There is no change in the solid intra-abdominal organs. There is no change in the appearance of the pancreas or adrenal glands. The left kidney is unchanged. There is no left sided hydronephrosis or hydroureter. There is no left sided nephrolithiasis or ureterolithiasis. The proximal right ureterolith seen on the prior exam is now in the very distal right ureter approximately 1 cm from the ureterovesical junction. The degree of right sided hydronephrosis and hydroureter is essentially unchanged to slightly increased. There is a calcification in the inferior pole of the right kidney which is unchanged. Bilateral pelvic phleboliths are noted status quo. Large low density cystic structures, one in each adnexa, status quo. No free fluid or free air. No acute bowel changes. No change in the osseous structures. IMPRESSION: Distal right ureterolith with resultant findings as described above along with other findings. Signed by Yosvany Gotti DO 04/12/2017 09:52 A
== END 2017-04-12 09:00 | disposition home or self-care (01) ==
LOC: M ED 06:16
DX: N20.1 Calculus of ureter (principal); N39.0 Urinary tract infection, site not specified; Z87.891 Personal history of nicotine dependence
CPT/HCPCS: 74176; 80048; 80076; 81001; 83690; 84703; 85025; 87086; 96374; 96375; 99284; J1885; J2405

== ENCOUNTER 2017-04-14 15:04 | Emergency (ER) | payer MEDICARE, MEDICAID ==
[~2017-04-14] VITALS: Ht 162.6 cm; Wt 78.6 kg
[~2017-04-14 15:04] MED LIST changes: +BACT800T5 PO; +FLOM5CAP PO
[2017-04-14] MEDS ORDERED: NS 1,000 ML IV ONE (15:45)
[2017-04-14] MEDS ORDERED: KETOROLAC 30 MG/ML VIAL (J1885) IV ONE (15:45)
[2017-04-14] MEDS ORDERED: ONDANSETRON 4MG/2ML VIAL (J2405) IV ONE (15:45)
--- NOTE | 2017-04-14 16:29 | REP ---
RENAL ULTRASOUND: Real-time sonographic evaluation of the kidneys was performed. Kidneys are normal in size and echotexture. Right kidney measuring 11.4 x 4.7 x 5.0 cm and left kidney 10.4 x 6.0 x 6.4 cm. There is no hydronephrosis bilaterally. There is suggestion of subcentimeter calculus in the lower pole of the right kidney as seen on the recent CT of 04/12/2017, however this is not optimally seen by ultrasound. No other renal abnormalities are seen. Urinary bladder is not well distended and not well evaluated although there are bilateral ureteral jets noted in the urinary bladder with Doppler color evaluation. IMPRESSION: No hydronephrosis bilaterally. Calculus seen in the lower pole of the right kidney on recent CT scan is not well visualized by ultrasound although there is a suggestion of a small calculus in the lower pole of the right kidney. Signed by Yfn Camarena MD 04/15/2017 09:06 A
[2017-04-14 17:07] LABS: BASO # 0.1 10^3/uL (0.0-0.2); BASO % 0.5 % (0.0-1.0); EOS # 0.1 10^3/uL (0.0-0.50); EOS % 0.7 % (0.0-3.0); IMMATURE GRANULOCYTE % 0.4 % (0-0); LYMPH # 0.7 10^3/uL (1.5-4.5); LYMPH % 6.6 % (24.0-44.0); MEAN CORPUSCULAR HEMOGLOBIN 26.8 pg (27.0-33.0); MEAN CORPUSCULAR HGB CONC 33.5 g/dl (32.0-36.5); MONO # 0.6 10^3/uL (0.0-0.8); MONO % 5.4 % (0.0-5.0); NEUTROPHILS # 8.9 10^3/uL (1.8-7.7); NEUTROPHILS % 86.4 % (36.0-66.0); PLATELET COUNT, AUTOMATED 260 10^3/uL (150-450); RED CELL DISTRIBUTION WIDTH 13.1 % (11.5-14.5); WHITE BLOOD COUNT 10.3 10^3/uL (4.0-10.0)
[2017-04-14 17:27] LABS: ANION GAP 10 MEQ/L (8-16); BLOOD UREA NITROGEN 11 MG/DL (7-18); CARBON DIOXIDE LEVEL 25 MEQ/L (21-32); CHLORIDE LEVEL 104 MEQ/L (98-107); CREATININE FOR GFR 1.07 MG/DL (0.55-1.02); GLOMERULAR FILTRATION RATE > 60.0 (>60); GLUCOSE, FASTING 114 MG/DL (70-105); POTASSIUM SERUM 3.6 MEQ/L (3.5-5.1); SODIUM LEVEL 139 MEQ/L (136-145)
[2017-04-14] MEDS ORDERED: ZOFR4TAB3 PO (17:42)
[2017-04-14] MEDS ORDERED: PERC5TAB12 PO (17:42)
[2017-04-14] MEDS ORDERED: FLOM5CAP PO (17:42)
[2017-04-14] MEDS ORDERED: KETO10TAB PO (17:42)
[2017-04-14 17:59] VITALS: BP 110/67
== END 2017-04-14 18:06 | disposition home or self-care (01) ==
LOC: M ED 15:04
DX: N23 Unspecified renal colic (principal); D33.3 Benign neoplasm of cranial nerves; Z87.442 Personal history of urinary calculi; Z88.5 Allergy status to narcotic agent; Z88.8 Allergy status to other drugs, medicaments and biological substances
CPT/HCPCS: 76775; 80048; 81001; 81025; 85025; 96361; 96374; 96375; 99284; J1885; J2405

== ENCOUNTER → 2017-04-16 | Outpatient (REF) | payer MEDICARE ==
[~2017-04-16] MED LIST changes: +KETO10TAB PO; +PERC5TAB12 PO
== END ==
LOC: M SMT 17:04
PROVIDERS: ATTEND Nurse Practitioner Women's Health
DX: N13.2 Hydronephrosis with renal and ureteral calculous obstruction (principal)

== ENCOUNTER → 2017-04-21 | Outpatient (CLI) | payer MEDICARE ==
--- NOTE | 2017-04-22 16:56 | REP ---
CT ABDOMEN PELVIS WITHOUT CONTRAST 04/21/2017: Clinical history: Ureteral stone with hydronephrosis. Recent CT with distal right ureteral stone. Comparison: 04/12/2017, 04/09/2017 CT. Technique: Renal stone protocol. Findings: CT abdomen: The lung bases clear. The heart, liver, spleen and pancreas unremarkable. Prior cholecystectomy. The colon small bowel loops and abdomen proper are unremarkable. The appendix seen and normal. Both kidneys showed no stone, hydronephrosis, mass or cyst. The aorta is normal. Bones are unchanged. CT pelvis: Small pelvic phlebolith on the right and 4 mm distal ureteral stone on the previous CT is resolved. There is no stone in the bladder. There are a few other pelvic phleboliths. There is a right adnexal cyst parametria location about 3.7 cm. To be a pedunculated fibroid off the anterior lateral left aspect of the uterine fundus unchanged. No pelvic lymphadenopathy or free fluid. Bladder shows no wall thickening, stone or mass. No ventral or inguinal hernia. Impression: 1. Interval passage of the 4 mm distal ureteral stone seen on the CT of 04/12/2017 on that right side and multiple pelvic phleboliths remain along with a right ovarian cyst at 3.7 cm and a pedunculated fibroid off the left anterior lateral aspect of the fundus. There are no other significant or acute findings. Signed by Hayder Combs MD 04/22/2017 05:27 P
== END ==
LOC: M RAD 17:02
PROVIDERS: ATTEND Nurse Practitioner Women's Health
DX: N13.2 Hydronephrosis with renal and ureteral calculous obstruction (principal)

== ENCOUNTER 2017-06-11 19:46 | Emergency (ER) | payer MEDICARE, MEDICAID ==
[2017-06-11 20:31] LABS: BASO # 0.1 10^3/uL (0.0-0.2); BASO % 0.6 % (0.0-1.0); EOS # 0.2 10^3/uL (0.0-0.50); EOS % 1.5 % (0.0-3.0); HEMATOCRIT 43.2 % (36.0-47.0); HEMOGLOBIN 13.9 g/dl (12.0-16.0); IMMATURE GRANULOCYTE % 0.2 % (0-3.0); LYMPH # 1.4 10^3/uL (1.5-4.5); LYMPH % 14.6 % (24.0-44.0); MEAN CORPUSCULAR HEMOGLOBIN 26.4 pg (27.0-33.0); MEAN CORPUSCULAR HGB CONC 32.2 g/dl (32.0-36.5); MONO # 0.4 10^3/uL (0.0-0.8); MONO % 3.6 % (0.0-5.0); NEUTROPHILS # 7.7 10^3/uL (1.8-7.7); NEUTROPHILS % 79.5 % (36.0-66.0); PLATELET COUNT, AUTOMATED 316 10^3/uL (150-450); RED BLOOD COUNT 5.27 10^6/uL (4.00-5.40); RED CELL DISTRIBUTION WIDTH 13.2 % (11.5-14.5); WHITE BLOOD COUNT 9.7 10^3/uL (4.0-10.0)
[2017-06-11 20:43] LABS: INR 1.02; PROTHROMBIN TIME 13.5 SECONDS (12.4-14.5)
[2017-06-11 20:44] LABS: PARTIAL THROMBOPLASTIN TIME 28.9 SECONDS (26.8-37.9)
[2017-06-11 20:51] LABS: BEDSIDE GLUCOSE 144 MG/DL (70-105)
[2017-06-11 21:06] LABS: ANION GAP 9 MEQ/L (8-16); BLOOD UREA NITROGEN 14 MG/DL (7-18); CALCIUM LEVEL 8.8 MG/DL (8.5-10.1); CARBON DIOXIDE LEVEL 23 MEQ/L (21-32); CHLORIDE LEVEL 109 MEQ/L (98-107); CPK CREATINE PHOSPHOKINASE 118 U/L (26-192); CREATININE FOR GFR 0.96 MG/DL (0.55-1.30); GLOMERULAR FILTRATION RATE > 60.0 (>60); GLUCOSE, FASTING 144 MG/DL (70-100); MB/CK RELATIVE INDEX 0.84 (< OR =4); POTASSIUM SERUM 3.6 MEQ/L (3.5-5.1); SODIUM LEVEL 141 MEQ/L (136-145); TROPONIN I < 0.02 NG/ML (< 0.10)
[2017-06-11] MEDS: KETOROLAC 30 MG/ML VIAL (J1885) IV (22:12)
== END 2017-06-11 23:28 | disposition home or self-care (01) ==
LOC: M ED 19:46
DX: G43.909 Migraine, unspecified, not intractable, without status migrainosus (principal); K21.9 Gastro-esophageal reflux disease without esophagitis; D33.3 Benign neoplasm of cranial nerves; M35.00 Sjogren syndrome, unspecified; M32.9 Systemic lupus erythematosus, unspecified; M51.36 Other intervertebral disc degeneration, lumbar region; Z98.84 Bariatric surgery status; Z79.899 Other long term (current) drug therapy; Z88.8 Allergy status to other drugs, medicaments and biological substances; F17.210 Nicotine dependence, cigarettes, uncomplicated
CPT/HCPCS: J1885

== ENCOUNTER 2017-12-02 07:02 | Emergency (ER) | payer MEDICARE, MEDICAID ==
[2017-12-02 08:23] LABS: CPK CREATINE PHOSPHOKINASE 74 U/L (26-192); TROPONIN I < 0.02 NG/ML (< 0.10)
[2017-12-02 08:24] LABS: CK-MB VALUE MASS < 1.0 NG/ML (<3.6); MB/CK RELATIVE INDEX 1.35 (< OR =4)
[2017-12-02] MEDS: KETOROLAC 30 MG/ML VIAL (J1885) IV (08:51)
== END 2017-12-02 09:15 | disposition home or self-care (01) ==
LOC: M ED 07:02
DX: R07.89 Other chest pain (principal); K21.9 Gastro-esophageal reflux disease without esophagitis; G43.909 Migraine, unspecified, not intractable, without status migrainosus; Z79.899 Other long term (current) drug therapy; Z88.5 Allergy status to narcotic agent; Z88.8 Allergy status to other drugs, medicaments and biological substances
CPT/HCPCS: J1885

== ENCOUNTER → 2017-12-03 | Outpatient (REF) | payer MEDICARE, MEDICAID ==
[2017-12-03 13:01] LABS: ALBUMIN/GLOBULIN RATIO 1.11 (1.00-1.93); ALKALINE PHOSPHATASE 76 U/L (45-117); ALT/SGPT 26 U/L (12-78); ANION GAP 11 MEQ/L (8-16); AST/SGOT 13 U/L (7-37); BILIRUBIN,TOTAL 0.8 MG/DL (0.2-1.0); BLOOD UREA NITROGEN 12 MG/DL (7-18); CALCIUM LEVEL 9.4 MG/DL (8.5-10.1); CARBON DIOXIDE LEVEL 26 MEQ/L (21-32); CHLORIDE LEVEL 106 MEQ/L (98-107); CREATININE FOR GFR 0.79 MG/DL (0.55-1.30); FREE T4 1.25 NG/DL (0.76-1.46); GLOMERULAR FILTRATION RATE > 60.0 (>60); GLUCOSE, FASTING 71 MG/DL (70-100); POTASSIUM SERUM 3.8 MEQ/L (3.5-5.1); SODIUM LEVEL 143 MEQ/L (136-145); TOTAL PROTEIN 7.6 GM/DL (6.4-8.2)
== END ==
LOC: M SFHCPLAZ 10:10
DX: F32.2 Major depressive disorder, single episode, severe without psychotic features (principal)
CPT/HCPCS: 84443

== ENCOUNTER 2018-01-20 14:44 | Emergency (ER) | payer MEDICARE, MEDICAID ==
[2018-01-20] MEDS: ONDANSETRON 4 MG ORAL DISINTEGRATING TAB (Q0162 PER 1MG) PO (16:46)
[2018-01-20] MEDS: KETOROLAC 60 MG/2 ML VIAL (J1885) IM (16:47)
[2018-01-20] MEDS: NORCO, ANEXSIA 5/325MG TABLET (HYDROcodone/ACETAMINOPHEN) PO (17:31)
== END 2018-01-20 17:36 | disposition home or self-care (01) ==
LOC: M ED 14:44
DX: G43.909 Migraine, unspecified, not intractable, without status migrainosus (principal); K21.9 Gastro-esophageal reflux disease without esophagitis; M32.9 Systemic lupus erythematosus, unspecified; M51.36 Other intervertebral disc degeneration, lumbar region; Z87.442 Personal history of urinary calculi; Z79.899 Other long term (current) drug therapy; Z88.8 Allergy status to other drugs, medicaments and biological substances; F17.210 Nicotine dependence, cigarettes, uncomplicated
CPT/HCPCS: Q0162

== ENCOUNTER → 2018-04-22 | Outpatient (REF) | payer MEDICARE, MEDICAID ==
[2018-04-22 16:40] LABS: ALBUMIN/GLOBULIN RATIO 1.18 (1.00-1.93); ALKALINE PHOSPHATASE 75 U/L (45-117); ALT/SGPT 14 U/L (12-78); ANION GAP 7 MEQ/L (8-16); AST/SGOT 8 U/L (7-37); BILIRUBIN,TOTAL 0.5 MG/DL (0.2-1.0); BLOOD UREA NITROGEN 8 MG/DL (7-18); CALCIUM LEVEL 9.2 MG/DL (8.5-10.1); CARBON DIOXIDE LEVEL 28 MEQ/L (21-32); CHLORIDE LEVEL 103 MEQ/L (98-107); COMPLEMENT C3 126 MG/DL (90-180); COMPLEMENT C4 18 MG/DL (10-40); CREATININE FOR GFR 0.78 MG/DL (0.55-1.30); GLOMERULAR FILTRATION RATE > 60.0 (>60); GLUCOSE, FASTING 92 MG/DL (70-100); SODIUM LEVEL 138 MEQ/L (136-145); TOTAL PROTEIN 7.4 GM/DL (6.4-8.2)
[2018-04-22 16:41] LABS: BASO # 0.1 10^3/uL (0.0-0.2); BASO % 0.5 % (0.0-1.0); EOS # 0.1 10^3/uL (0.0-0.50); HEMATOCRIT 44.5 % (36.0-47.0); HEMOGLOBIN 14.3 g/dl (12.0-15.5); IMMATURE GRANULOCYTE % 0.3 % (0-3.0); LYMPH % 15.9 % (24.0-44.0); MEAN CORPUSCULAR HEMOGLOBIN 27.2 pg (27.0-33.0); MEAN CORPUSCULAR HGB CONC 32.1 g/dl (32.0-36.5); MEAN CORPUSCULAR VOLUME 84.6 fl (80.0-96.0); MONO # 0.6 10^3/uL (0.0-0.8); NEUTROPHILS # 9.7 10^3/uL (1.8-7.7); NEUTROPHILS % 77.3 % (36.0-66.0); PLATELET COUNT, AUTOMATED 360 10^3/uL (150-450); RED BLOOD COUNT 5.26 10^6/uL (4.00-5.40); RED CELL DISTRIBUTION WIDTH 14.4 % (11.5-14.5); WHITE BLOOD COUNT 12.6 10^3/uL (4.0-10.0)
[2018-04-22 17:10] LABS: ESTIMATED AVERAGE GLUCOSE 105 MG/DL (60-110); HEMOGLOBIN A1c 5.3 %
[2018-04-22 17:14] LABS: FOLLICLE STIMULATING HORMONE 9.7 mIU/mL; LUTEINIZING HORMONE 10.5 mIU/mL; PROLACTIN 9.7 NG/ML
[2018-04-22 19:05] LABS: ERYTHROCYTE SEDIMENTATION RATE 4 mm/hr (0-20)
== END ==
LOC: M SFHCPLAZ 13:57
DX: M32.9 Systemic lupus erythematosus, unspecified (principal); N93.9 Abnormal uterine and vaginal bleeding, unspecified; N20.0 Calculus of kidney
CPT/HCPCS: 83001

== ENCOUNTER → 2018-05-07 | Outpatient (REF) | payer MEDICARE, MEDICAID ==
[~2018-05-07] MED LIST changes: +FLOM0.4C39 PO; -FLOM5CAP PO; +MELO15TA28 PO; -MELO15TA4 PO; +OMEP40CA2 PO; +TIZA2CAP PO; -TIZA2CAP3 PO; +TIZA4CAP PO; -TIZA4CAP3 PO; +ZOFR4TAB14 PO; -ZOFR4TAB3 PO
[2018-05-07 12:50] LABS: FREE T4 0.96 NG/DL (0.76-1.46); THYROID STIMULATING HORMONE 3.39 uIU/ML (0.358-3.740)
[2018-05-07 13:28] LABS: CORTISOL AM 32.3 UG/DL (4.3-22.4)
[2018-05-12 08:06] LABS: ANTI MULLERIAN HORMONE 0.016 ng/mL (.)
[2018-05-14 00:06] LABS: UR KIDNEY STONE 24HR AMMONIA 12 mEq/24 hr (Not Estab.); UR KIDNEY STONE 24HR CALCIUM 158.6 mg/24 hr (100.0-300.0); UR KIDNEY STONE 24HR CITRIC AC 239 mg/24 hr (320-1240); UR KIDNEY STONE 24HR CL 76 mmol/24 hr (110-250); UR KIDNEY STONE 24HR CREATININ 628.9 mg/24 hr (800.0-1800.0); UR KIDNEY STONE 24HR CYSTINE 5.84 mg/24 hr (10.00-100.00); UR KIDNEY STONE 24HR K 19.3 mmol/24 hr (25.0-125.0); UR KIDNEY STONE 24HR MG 35 mg/24 hr (12-293); UR KIDNEY STONE 24HR NA 87 mmol/24 hr (39-258); UR KIDNEY STONE 24HR OXALATE 13 mg/24 hr (4-31); UR KIDNEY STONE 24HR SULFATE 10 mEq/24 hr (0-30); UR KIDNEY STONE 24HR URIC ACID 295 mg/24 hr (250-750); UR KIDNEY STONE 24HR pH 6.4 (.); UR KIDNEY STONE AMMONIA 34730 ug/dL (Not Estab.); UR KIDNEY STONE BRUSHITE SAT R 6.55 ratio (0.00-3.00); UR KIDNEY STONE CA-OX SAT RATI 10.81 ratio (0.00-6.00); UR KIDNEY STONE CITRIC ACID 391 mg/L (Not Estab.); UR KIDNEY STONE CL 125 mmol/L (Not Estab.); UR KIDNEY STONE CREATININE 103.1 mg/dL (Not Estab.); UR KIDNEY STONE CYSTINE 9.58 mg/L (Not Estab.); UR KIDNEY STONE INTERP 610 mL/24 hr (600-1600); UR KIDNEY STONE K 31.7 mmol/L (Not Estab.); UR KIDNEY STONE MG 5.7 mg/dL (Not Estab.); UR KIDNEY STONE MONO URAT SAT 7.85 ratio (0.00-4.00); UR KIDNEY STONE NA 143 mmol/L (Not Estab.); UR KIDNEY STONE OSMOLALITY 598 mOsmol/kg (300-900); UR KIDNEY STONE OXALATE 22 mg/L (Not Estab.); UR KIDNEY STONE PHOS 68.2 mg/dL (Not Estab.); UR KIDNEY STONE STRUVITE SAT R 0.09 ratio (0.00-1.00); UR KIDNEY STONE SULFATE 16 mEq/L (Not Estab.); UR KIDNEY STONE URIC AC SAT RA 0.88 ratio (0.00-1.20); UR KIDNEY STONE URIC ACID 48.4 mg/dL (Not Estab.); UR KIDNEY STONE VOLUME 610 mL/24 hr (600-1600)
== END ==
LOC: M SFHCPLAZ 07:40
PROVIDERS: ATTEND Family Medicine
DX: E28.1 Androgen excess (principal); N20.0 Calculus of kidney

== ENCOUNTER → 2018-05-10 | Outpatient (CLI) | payer MEDICARE, MEDICAID ==
--- NOTE | 2018-05-10 11:19 | REP ---
COMPLETE ABDOMINAL SONOGRAPHY: HISTORY: Hyperandrogenemia. The patient reports a history of a known liver hemangioma. Comparison urinary tracts sonography May 05, 2018. Comparison CT abdomen and pelvis April 21, 2017. FINDINGS: Scanning through the right upper quadrant demonstrates a 1.1 x 0.9 x 1.2 cm hyperechoic nodule in the right lobe of the liver, posterosuperior consistent with hemangioma. No other focal liver lesion is seen. Common bile duct is normal measuring 0.4 cm in greatest diameter. The gallbladder surgically absent. Pancreas is unremarkable. There is no evidence of ascites. A normal sized homogeneous spleen is seen, 10.2 cm in greatest dimension. No focal splenic lesion is seen. Renal cortical echogenicity pattern is normal and contours are smooth bilaterally. Right renal dimensions are 10.3 x 4.4 x 3.9 cm. Left kidney measures 10.8 x 4.0 x 4.6 cm. Normal caliber aorta is seen, 1.8 cm in greatest AP dimension. Normal adrenal glands are seen bilaterally. 1.1 cm in greatest width bilaterally. No evidence of adrenal lesion. IMPRESSION: 1.2 cm hyperechoic nodule in the liver consistent with hemangioma. This is unchanged in size from August 21, 2016 CT study. Otherwise negative complete abdominal sonography. Normal adrenals.
--- NOTE | 2018-05-10 13:43 | REP ---
Pelvic sonography: History: Hyperandrogenemia. Findings: Uterine dimensions are mildly prominent at 9.5 x 4.2 x 8.1 cm per endometrial echo 0.5 cm thick and centrally placed. There is an intramural fibroid on the right anteriorly measuring 2.9 x 2.2 x 2.4 cm. There is a subserosal possibly pedunculated fibroid on the left anteriorly measuring 3.5 x 3.4 x 2.5 cm. Bladder denney are smooth. Right ovary is normal measuring 3.0 x 1.7 x 2.2 cm. Left ovarian dimensions are 3.8 x 2.4 x 4.3 cm. The left ovary contains a 2.9 x 2.4 x 2.0 cm cyst containing minimal hypoechoic internal echoes. Impression: Fibroid uterus. 2.9 cm hypoechoic cyst left ovary.
== END ==
LOC: M WHC 07:54
PROVIDERS: ATTEND Family Medicine
DX: E28.1 Androgen excess (principal)

== ENCOUNTER 2018-08-06 20:28 | Emergency (ER) | payer MEDICARE, MEDICAID ==
[~2018-08-06] VITALS: Ht 160 cm; Wt 63.6 kg
[~2018-08-06 20:28] MED LIST changes: -NORC1TAB4 PO; +NORC1TAB7 PO; -PEPC1TAB2 PO; +PEPC40TA12 PO
[2018-08-06 20:29] VITALS: BP 144/87
[2018-08-06] MEDS ORDERED: SPIR50TA4 (20:37)
[2018-08-06] MEDS ORDERED: CITA10TA5 (20:37)
[2018-08-06] MEDS ORDERED: DOXY100C37 PO (21:19)
== END 2018-08-06 21:26 | disposition home or self-care (01) ==
LOC: M ED 20:28
DX: L05.91 Pilonidal cyst without abscess (principal); K21.9 Gastro-esophageal reflux disease without esophagitis; F17.210 Nicotine dependence, cigarettes, uncomplicated; Z79.899 Other long term (current) drug therapy; Z88.5 Allergy status to narcotic agent; Z88.8 Allergy status to other drugs, medicaments and biological substances

== ENCOUNTER → 2018-10-21 | Outpatient (REF) | payer MEDICARE, MEDICAID ==
[~2018-10-21] MED LIST changes: +CITA10TA5; +DOXY100C37 PO; +SPIR50TA4
[2018-10-21 13:59] LABS: HEMOGLOBIN A1c 5.2 %
[2018-10-23 01:35] LABS: INSULIN LEVEL 7.1 uIU/mL (2.6-24.9); TESTOSTERONE FREE (DIRECT) 2.9 pg/mL (0.0-4.2)
== END ==
LOC: M SFHCPLAZ 09:38
PROVIDERS: ATTEND Family Medicine
DX: M32.9 Systemic lupus erythematosus, unspecified (principal); E28.1 Androgen excess

== ENCOUNTER → 2020-04-18 | Outpatient (REF) | payer MEDICARE, MEDICAID ==
[~2020-04-18] MED LIST changes: -OMEP40CA2 PO; +OMEP40CA97 PO; +[UNRECOGNIZED DRUG - CODE] TOP; -[UNRECOGNIZED DRUG - CODE] TOP
[2020-04-18 15:43] LABS: APPEARANCE, URINE HAZY (CLEAR); BACTERIA, URINE AUTO NEGATIVE (NEGATIVE); BILIRUBIN, URINE AUTO NEGATIVE (NEGATIVE); BLOOD, URINE BLOOD NEGATIVE (NEGATIVE); COLOR, URINE YELLOW (YELLOW); GLUCOSE, URINE (UA) AUTO NEGATIVE (NEGATIVE); KETONE, URINE AUTO NEGATIVE (NEGATIVE); LEUKOCYTE ESTERASE, URINE AUTO NEGATIVE (NEGATIVE); MUCUS, URINE SMALL (NEGATIVE); NITRITE, URINE AUTO NEGATIVE (NEGATIVE); PROTEIN, URINE AUTO NEGATIVE (NEGATIVE); RBC, URINE AUTO 1 /HPF (0-3); SPECIFIC GRAVITY URINE AUTO 1.019 (1.002-1.035); SQUAMOUS EPITHELIAL CELL UR AU 6 /HPF (0-6); WBC, URINE AUTO 0 /HPF (0-3)
[2020-04-18 15:44] LABS: BASO % 0.5 % (0.0-1.0); EOS # 0.1 10^3/uL (0.0-0.5); EOS % 1.6 % (0.0-3.0); HEMATOCRIT 45.8 % (36.0-47.0); HEMOGLOBIN 14.2 g/dl (12.0-15.5); LYMPH # 1.2 10^3/uL (1.5-5.0); LYMPH % 15.2 % (24.0-44.0); MEAN CORPUSCULAR HEMOGLOBIN 26.2 pg (27.0-33.0); MEAN CORPUSCULAR VOLUME 84.3 fl (80.0-96.0); MONO # 0.6 10^3/uL (0.0-0.8); MONO % 7.3 % (0.0-5.0); NEUTROPHILS # 6.1 10^3/uL (1.5-8.5); PLATELET COUNT, AUTOMATED 301 10^3/uL (150-450); RED BLOOD COUNT 5.43 10^6/uL (4.00-5.40); WHITE BLOOD COUNT 8.1 10^3/uL (4.0-10.0)
[2020-04-18 15:51] LABS: ALBUMIN 3.8 GM/DL (3.2-5.2); ALT/SGPT 17 U/L (12-78); BILIRUBIN,TOTAL 0.4 MG/DL (0.2-1.0); BLOOD UREA NITROGEN 10 MG/DL (7-18); CALCIUM LEVEL 8.7 MG/DL (8.5-10.1); CARBON DIOXIDE LEVEL 25 MEQ/L (21-32); CHLORIDE LEVEL 107 MEQ/L (98-107); COMPLEMENT C3 99 MG/DL (90-180); COMPLEMENT C4 18 MG/DL (10-40); CREATININE FOR GFR 0.81 MG/DL (0.55-1.30); FREE T4 1.02 NG/DL (0.76-1.46); GLOMERULAR FILTRATION RATE > 60.0 (>58); GLUCOSE, FASTING 97 MG/DL (70-100); POTASSIUM SERUM 4.4 MEQ/L (3.5-5.1); SODIUM LEVEL 139 MEQ/L (136-145)
[2020-04-18 16:04] LABS: TOTAL PROTEIN,RANDOM URINE 15.9 MG/DL (0.0-12.0)
[2020-04-19 14:08] LABS: ANTINUCLEAR ANTIBODIES DIRECT Negative (Negative)
== END ==
LOC: M SFHCPLAZ 11:55
PROVIDERS: ATTEND Family Medicine
DX: M32.9 Systemic lupus erythematosus, unspecified (principal)

== ENCOUNTER → 2020-06-13 | Outpatient (CLI) | payer MEDICARE, MEDICAID ==
--- NOTE | 2020-06-13 17:59 | REP ---
INDICATION: NEPHROLITHIASIS COMPARISON: 04/25/2019 TECHNIQUE: Real time kiser scale ultrasound examination using curved array transducer. FINDINGS: Bilateral kidneys are normal in contour, size, echogenicity, and reniform shape without hydronephrosis, nephrolithiasis, cystic or renal mass lesion. Right kidney measures 10.3 x 4.3 x 4.0 cm. Left kidney measures 9.9 x 4.5 x 6.5 cm. Bladder appears normal with bilateral ureteral jets identified. Incidental left ovarian cyst measures 3.3 cm diameter and suspected myomatous changes to the uterus. IMPRESSION: Normal kidneys without hydronephrosis or nephrolithiasis. Pelvic findings as noted above including left ovarian cyst and suspected myomatous changes to the uterus. <Electronically signed by Chaim Adrian > 06/13/20 [id number]
== END ==
LOC: M RAD 11:46
PROVIDERS: ATTEND Family Medicine
DX: N20.0 Calculus of kidney (principal)

== ENCOUNTER → 2020-08-03 | Outpatient (CLI) | payer MEDICARE, MEDICAID ==
--- NOTE | 2020-08-03 12:42 | REPMRS ---
Patient History The patient states she has not had a clinical breast exam in over a year. Patient is nulliparous. Family history of unknown cancer in maternal grandmother, prostate cancer in maternal grandfather, unknown cancer in paternal grandfather. Patient had a bilateral breast reduction 12/2016 3D TOMOSYNTHESIS WAS PERFORMED. The [facility] lifetime risk for breast cancer is 12.9%. Volpara breast density c. Digital Woman Screen Mammo: August 03, 2020 - Exam #: [id number] Bilateral CC and MLO view(s) were taken. Technologist: Shirley Do, Technologist No prior studies available for comparison. FINDINGS: The breast tissue is heterogeneously dense. This may lower the sensitivity of mammography. There is a moderate amount of residual fibroglandular tissue which is fairly symmetric. There is no dominant mass, areas of architectural distortion, or clustered microcalcification typical of malignancy. Assessment: BI-RADS/ACR category 1 mammogram. Negative Mammogram. Recommendation Routine screening mammogram in 1 year (for women over age 40). This mammogram was interpreted with the aid of an FDA-approved computer-aided dectection system. Electronically Signed By: Yfn Camarena MD 08/03/20 [id number]
== END ==
LOC: M WHC 11:29
PROVIDERS: ATTEND Family Medicine
DX: Z12.31 Encounter for screening mammogram for malignant neoplasm of breast (principal); Z98.890 Other specified postprocedural states

== ENCOUNTER → 2020-09-04 | Outpatient (REF) | payer MEDICARE, MEDICAID ==
[2020-09-04 14:33] LABS: ALT/SGPT 17 U/L (12-78); BILIRUBIN,TOTAL 0.4 MG/DL (0.2-1.0); BLOOD UREA NITROGEN 12 MG/DL (7-18); CALCIUM LEVEL 9.5 MG/DL (8.5-10.1); CARBON DIOXIDE LEVEL 28 MEQ/L (21-32); CHLORIDE LEVEL 107 MEQ/L (98-107); CHOLESTEROL LEVEL 158 MG/DL (<200); CHOLESTEROL RISK RATIO 2.925 (<5); COMPLEMENT C3 100 MG/DL (90-180); COMPLEMENT C4 17 MG/DL (10-40); CREATININE FOR GFR 0.76 MG/DL (0.55-1.30); GLOMERULAR FILTRATION RATE > 60.0 (>58); GLUCOSE, FASTING 92 MG/DL (70-100); HDL CHOLESTEROL 54 MG/DL (>40); LDL CHOLESTEROL 92 MG/DL (<100); NON-HDL-C 104 MG/DL; POTASSIUM SERUM 4.9 MEQ/L (3.5-5.1); SODIUM LEVEL 138 MEQ/L (136-145); TOTAL PROTEIN 7.5 GM/DL (6.4-8.2); TRIGLYCERIDES LEVEL 59 MG/DL (<150)
[2020-09-04 14:43] LABS: HEMOGLOBIN A1c 4.9 %
[2020-09-06 12:07] LABS: ANTI DS-DNA AB Negative (Negative); INSULIN LEVEL 8.9 uIU/mL (2.6-24.9); TESTOSTERONE FREE (DIRECT) 2.7 pg/mL (0.0-4.2)
== END ==
LOC: M PLALAB 11:32
PROVIDERS: ATTEND Family Medicine
DX: E28.1 Androgen excess (principal); Z79.899 Other long term (current) drug therapy
CPT/HCPCS: 36415; 80053; 80061; 83036; 83525; 84402; 84403; 86160; 86225; G0463

== ENCOUNTER → 2021-02-13 | Outpatient (CLI) | payer MEDICARE, MEDICAID ==
[~2021-02-13] MED LIST changes: +DOXY-443 PO; -DOXY100C37 PO; +OMEP40CA4 PO; -OMEP40CA97 PO
[2021-02-13 13:20] LABS: BASO # 0.1 10^3/uL (0.0-0.2); BASO % 1.2 % (0.0-1.0); EOS # 0.1 10^3/uL (0.0-0.5); EOS % 1.5 % (0.0-3.0); HEMATOCRIT 47.4 % (36.0-47.0); HEMOGLOBIN 15.2 g/dl (12.0-15.5); LYMPH # 1.1 10^3/uL (1.5-5.0); LYMPH % 12.6 % (24.0-44.0); MEAN CORPUSCULAR HEMOGLOBIN 26.9 pg (27.0-33.0); MEAN CORPUSCULAR HGB CONC 32.1 g/dl (32.0-36.5); MEAN CORPUSCULAR VOLUME 83.9 fl (80.0-96.0); MONO # 0.5 10^3/uL (0.0-0.8); MONO % 6.3 % (2.0-8.0); NEUTROPHILS # 6.6 10^3/uL (1.5-8.5); NEUTROPHILS % 77.8 % (36.0-66.0); PLATELET COUNT, AUTOMATED 225 10^3/uL (150-450); RED BLOOD COUNT 5.65 10^6/uL (4.00-5.40); WHITE BLOOD COUNT 8.4 10^3/uL (4.0-10.0)
[2021-02-13 13:43] LABS: ERYTHROCYTE SEDIMENTATION RATE 2 mm/hr (0-20)
[2021-02-13 13:51] LABS: ALBUMIN 3.8 GM/DL (3.2-5.2); ALT/SGPT 17 U/L (12-78); BILIRUBIN,TOTAL 0.2 MG/DL (0.2-1.0); BLOOD UREA NITROGEN 9 MG/DL (7-18); CALCIUM LEVEL 9.3 MG/DL (8.5-10.1); CARBON DIOXIDE LEVEL 26 MEQ/L (21-32); CHLORIDE LEVEL 106 MEQ/L (98-107); GLOMERULAR FILTRATION RATE > 60.0 (>58); GLUCOSE, FASTING 89 MG/DL (70-100); POTASSIUM SERUM 4.6 MEQ/L (3.5-5.1); SODIUM LEVEL 138 MEQ/L (136-145); TOTAL PROTEIN 7.3 GM/DL (6.4-8.2)
[2021-02-13 14:01] LABS: PTH INTACT 58.5 PG/ML (18.5-88.0); TOTAL 25(OH) VITAMIN D 23.1 NG/ML (30.0-100.0)
[2021-02-13 14:02] LABS: FOLLICLE STIMULATING HORMONE 7.6 mIU/mL; LUTEINIZING HORMONE 3.8 mIU/mL
== END ==
LOC: M PLALAB 10:45
PROVIDERS: ATTEND Family Medicine
DX: E55.9 Vitamin D deficiency, unspecified (principal); M32.9 Systemic lupus erythematosus, unspecified; K21.9 Gastro-esophageal reflux disease without esophagitis; N93.9 Abnormal uterine and vaginal bleeding, unspecified; Z79.899 Other long term (current) drug therapy; H52.02 Hypermetropia, left eye; L05.91 Pilonidal cyst without abscess; M70.60 Trochanteric bursitis, unspecified hip
CPT/HCPCS: 36415; 80053; 82306; 83001; 83002; 83970; 85025; 85652; 86140; 86677; 90682; G0008; G0463

== ENCOUNTER → 2021-04-01 | Outpatient (CLI) | payer MEDICARE, MEDICAID ==
[~2021-04-01] MED LIST changes: -CITA10TA5; +CITA10TA7; +HYDR-3713 PO; +OMEP40CA5 PO; +VITA1CAP25 PO
== END ==
LOC: M LABSMTC 10:18
PROVIDERS: ATTEND Anesthesiology
DX: Z01.812 Encounter for preprocedural laboratory examination (principal); Z20.822 Contact with and (suspected) exposure to COVID-19

== ENCOUNTER 2021-04-05 07:02 | Day surgery (SDC) | payer MEDICARE, MEDICAID ==
[~2021-04-05] VITALS: Ht 160 cm; Wt 65.2 kg
[~2021-04-05 07:02] MED LIST changes: +CITA10TA5; -CITA10TA7; +LR 1,000 ML IV ONE; +OMEP-221 PO; -OMEP40CA5 PO
--- OUTSIDE RECORDS SUMMARY | 2021-04-05 07:07 | CCD | Continuity of Care Document ---
Author Author Tessa COOPER DO Organization Unknown Address [address] [facility] [address], [address] [place] [address] Phone [phone] Care Team Providers Care Construction Field Engineer Name Role Phone Link Garcia M.D. AUTM [phone] AUTM Unavailable Problems Description No Active Problems Social History Type Date Description Comments Sex Unknown Tobacco Use Start: Unknown Patient is a current cigarette smoker, smokes every day Tobacco Use Start: Unknown Current Cigarette Smoker 5-10 Ci garettes Daily ETOH Use Rarely Recreational Drug Use Current Drug User smokes m arijuana every night at bedtime and if gets a headache Tobacco Use Start: Unknown Patient is a current smoker, smo kes every day 1/2 ppd for 20 years Exercise Type/Frequency Does not exercise Allergies and adverse reactions Active Allergies Criticality Reaction | Severity Comments Date Compazine Unable to assess criticality 03/04/2016 Suprep Unable to assess criticality Nausea and Vomiting 03/21/2016 Morphine Unable to assess criticality Abdominal pain 03/05/2021 Medications Active Medications SIG Qnty Indications Ordering Provide r Date Tizanidine HCL 2mg Tablets twice daily Unknown Topamax 50mg Tablets twice da subha Unknown Plaquenil 200mg Tablets twice daily Unknown Vitamin D3 2000Unit Capsules 1 by mouth every day Unknown Immunizations Description No Information Available Vital Signs Date Vital Result Comment 03/05/2021 1:44pm BP Systolic 112 mmHg BP Diastolic 58 mmHg Body Temperature 98.6 F Height 63 inches 5'3" Weight 141.25 lb BMI (Body Mass Index) 25.0 kg/m2 [place] Body Weight 115 lb Weight 64.071 kg BSA (Body Surface Area) 1.67 m2 12/13/2018 10:31am BP Systolic 122 mmHg BP Diastolic 68 mmHg Height 63 inches 5'3" Weight 134.00 lb BMI (Body Mass Index) 23.7 kg/m2 [place] Body Weight 115 lb Weight 60.782 kg BSA (Body Surface Area) 1.63 m2 Results Description No Information Available Procedures Description No Information Available Medical Devices Description No Information Available Encounters Description No Information Available Assessments Description No Information Available Plan of Treatment 03/04/2016 - Rosaline Denney RPA[place]* R12 Heartburn * R11.2 Nausea with vomiting, unspecified * R68.81 Early satiety * R63.4 Abnormal weight loss * D37.6 Neoplasm of uncertain behavior of liver, gallbladder and bile ducts * Z80.0 Family history of malignant neoplasm of digestive organs * * New Medication:* Suprep Bowel Prep * New Orders:* Endoscopy, Ordered: 03/04/16 * Comments:* Will arrange for upper endoscopy and colonoscopy. Reviewed risks and benefits of the procedures, as well as other options, with the patient. Prep for the procedures were discussed with patient. Patient verbalized understanding of all of the above and is in agreement to proceed. Patient will seek medical attention for any acute changes. Will monitor. * Follow up:* As scheduled, sooner if needed. Functional Status Description No Information Available Mental Status Description No Information Available Referrals Refer to Reason for Referral Status Appt Date Yfn Cooper D.O. PILONIDAL CYST WITH OUT ABSCESS Schedul ed 03/07/[address] [place] [id number] [phone]
--- OUTSIDE RECORDS SUMMARY | 2021-04-05 07:07 | CCD ---
Author Author [facility] Organization [facility] Address Unknown Phone Unavailable Care Team Providers Care Tongue And Groove Machine Operator Name Role Phone Link Garcia Unavailable PROBLEMS Type Condition ICD9-CM Code [id number] Code Onset Dates Condition S tatus W/U Status Risk SNOMED Code Notes Problem Anal fissure K60.2 Active confirmed 9084186 6 Problem Common migraine G43.009 Active confirmed 560 76992 Problem Nicotine addiction F17.200 Active confirmed 01893143 Problem Vitamin D deficiency, unspecified E55.9 Active con firmed 94430037 Problem Systemic lupus erythematosus, unspecified M32.9 Active confirmed 98295402 Problem GERD (gastroesophageal reflux disease) K21.9 A ctive confirmed 970891540 Problem DJD (degenerative joint disease), cervical M50.30 Active confirmed 76780256 Problem Folliculitis L73.9 Active confirmed 4814488 6 Problem Cervical cancer screening Z12.4 Active confirmed 447809888 Problem Nephrolithiasis N20.0 Active confirmed 9557 0007 Problem Breast cancer screening Z12.39 Active confirmed 247863224 Problem Liver lesion, right lobe K76.89 Active confirmed 152289549 Problem 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 Active confirmed 633176500129071 Problem Abnormal uterine bleeding (AUB) N93.9 Active confirmed 43636575126710 Problem Long-term use of Plaquenil Z79.899 Active confirmed 607588899 Problem KCS (keratoconjunctivitis sicca) M35.01 Active confirmed 045095866 Problem Hyperandrogenemia E28.1 Active confirmed 37 0433206 Problem 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 Active confirmed 75294715293266 ALLERGIES Allergen (clinical drug ingredient) Drug/Non Drug Allergy do cumented on EMR Reaction Allergy Type Onset Date Status Compazine Rash Drug Allergy Active ENCOUNTERS from 1979 to 2021-02-21 Encounter Location Date Provider Diagnosis [facility] Elio Barrientos5 [facility] [phone] [place] [address] 13 Feb, 2021 Link Garcia IMMUNIZATIONS Vaccine Route Administration Date Status Influenza 18 yrs & older Flublok IM Intramuscular Apr 11, 2019 Administered Zofran 4mg/2mL Ondansetron IM Intramuscular Apr 20, 2017 Admi nistered Influenza 6mo & up Fluzone IM Intramuscular Apr 22, 2018 Admi nistered Influenza 6mo & up Fluzone IM Intramuscular Apr 10, 2017 Admi nistered Influenza 6mo & up Fluzone IM Intramuscular Feb 21, 2016 Admi nistered Influenza 6mo & up Fluzone IM Intramuscular Feb 01, 2015 Admi nistered Influenza 18 yrs & older Flublok IM Intramuscular Feb 13, 2021 Administered Influenza 6mo & up Fluzone IM Intramuscular Mar 14, 2014 Admi nistered COVID-19 dose #1 given elsewhere Unspecified IM Intramuscular Ap 2020 Administered Influenza 6mo & up Fluzone IM Intramuscular Mar 18, 2011 Admi nistered Influenza 6mo & up Fluzone IM Intramuscular May 14, 2010 Admi nistered SOCIAL HISTORY Tobacco Use: Social History Observation Description Date Details (start date - stop date) Current Smoker Sex Assigned At : Social History Observation Description Sex Assigned At Unknown Education: Question Answer Notes Level of Education: High School Language: Question Answer Notes Languages spoken: Serbian Hindu: Question Answer Notes Hindu 20 Muslim Sexual Hx: Question Answer Notes Had sex in the last 12 months (vaginal, oral, or anal)? Yes Have you ever had an STD? No with Men only Use protection? No Alcohol Screening: Question Answer Notes Did you have a drink containing alcohol in the past year? Ye s Points 3 Interpretation Positive How often did you have six or more drinks on one occas ion in the past year? Never (0 points) How many drinks did you have on a typica l day when you were drinking in the past year? 3 or 4 (1 point) How often did you have a drink containing alcohol in t he past year? Two to four times a month (2 points) Tobacco Use: Question Answer Notes Are you a: current smoker Smoking Cessation Information Given 09/04/2020 Patient counseled on the dangers of tobacco use and urged to quit: 09/04/2020 How many cigarettes a day do you smoke? 6-10 Are you interested in quitting? Not ready to quit Counseled the patient on smoking effects, education provided 09/04/2020 REASON FOR REFERRAL No Information VITAL SIGNS No information MEDICATIONS Medication SIG (Take, Route, Frequency, Duration) Notes Start Da te End Date Status Vitamin D 5000 1 tablet Orally Once a day for 90 day(s) Active tiZANidine HCl 2 MG 1 tab Orally TID prn flares for 30 Days Active Topiramate 50 MG 1 tablet Orally Twice a day for 30 day(s) Active Hydroxychloroquine 200 mg 1 tab orally bid for 90 day(s) Active Naratriptan HCl 2.5 MG 1 tablet Orally Once a day prn headache for 30 Days Active Omeprazole 40 MG 1 cap Orally every morning for 30 day(s) Active Bactroban 2% as directed applied topicall y twice a day x 7 days with B arm folliculitis flares-disp cream! for 30 day(s) Active [place] 5-325 MG 1 tablet as needed Orally as needed MDD:1 for 30 day(s) Feb, Active HYDROcodone-Acetaminophen 5-325 MG 1 tablet as needed Orally Daily as needed for 30 Days September, Active Mometasone Furoate 0.1 % 1 application to affected ar ea Externally Twice a day x 5 days c flares for 30 day(s) Ac tive Ketoconazole 2 % 5 ml Externally Daily, leave in hair x 5 minute s for 30 days Active tiZANidine HCl 2 MG TAKE ONE TABLET BY MOUTH THR EE TIMES A DAY NEEDED FOR FLARES for 20 Active Spironolactone 50 MG 1 tablet with food Orally every morning for 30 day(s) Active PROCEDURES No Information RESULTS No Results REASON FOR VISIT No Information MEDICAL (GENERAL) HISTORY Type Description Date Medical History SLE/Sjogren's syndrome with skin and joint involvement, chronic Plaquenil use//- APS w/u Medical History GERD/hiatal hernia-10/2015 UG I c DAVID to thoracic inlet/ normal EGD/colon-R Medical History history of Spitz nevus right thigh Medical History migraine headaches common ty pe-02/2014 MRI brain several T2WI SC [facility] Medical History history 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, deafness Medical History 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// hypermetropia Medical History keratitis sicca Medical History nicotine addiction-03/2011 FEV1 2.95L (8 7%)/ratio 98% Medical History liver hemangiomae Medical History 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 [facility] breast ce [place]ter [place] 12/11/16 Hospitalization History ER for bilateral thigh pain 6 Hospitalization History chest pain, then abdominal p ain p morphine IV-- CTA chest/CT AP c/w enteritis, normal CBCD, AST/ALT 38/107, Dexilant changed to Pepcid 08/21- Goals Section No Information Health Concerns No Information MEDICAL EQUIPMENT No Information MENTAL STATUS No Information FUNCTIONAL STATUS No Information ASSESSMENTS No Information PLAN OF TREATMENT Medication Medication Name Sig Start Date Stop Date Topiramate 50 MG 1 tablet Orally Twice a day for 30 day(s) Naratriptan HCl 2.5 MG 1 tablet Orally Once a day prn headache f or 30 Days tiZANidine HCl 2 MG 1 tab Orally TID prn flares for 30 Days Ketoconazole 2 % 5 ml Externally Daily, leave in hair x 5 minute s for 30 days Hydroxychloroquine 200 mg 1 tab orally bid for 90 day(s) Omeprazole 40 MG 1 cap Orally every morning for 30 day(s) Bactroban 2% as directed applied topicall y twice a day x 7 days with B arm folliculitis flares-disp cream! for 30 day(s) Spironolactone 50 MG 1 tablet with food Orally every morning for 30 day(s) [place] 5-325 MG 1 tablet as needed Orally as needed MDD: 1 for 30 day(s) Feb, Vitamin D 5000 1 tablet Orally Once a day for 90 day(s) Mometasone Furoate 0.1 % 1 application to affected ar ea Externally Twice a day x 5 days c flares for 30 day(s) Next Appt Details Provider Name:Link Garcia, 2021-03-12 0 8:45:00 AM, [address] [place] [address] , [place], [address], Provider Name:Link Garcia, 2021-08-15 0 8:15:00 AM, [address] [place] [address] , [place], [address], Insurance Providers Payer Name Payer Address Payer Phone Insured Name Patient Relati onship to Insured Coverage Start Date [facility]age End Date [facility] [address] [facility] [address] TOMY MONROY MEDICAID [facility] [address] [facility] [id number] TOMY MONROY
--- OUTSIDE RECORDS SUMMARY | 2021-04-05 07:07 | CCD ---
Author Author [facility] Organization [facility] Address Unknown Phone Unavailable Care Team Providers Care Manager Icu Name Role Phone Link Garcia Unavailable PROBLEMS Type Condition ICD9-CM Code MNP13-FN Code Onset Dates Condition S tatus W/U Status Risk SNOMED Code Notes Problem Anal fissure K60.2 Active confirmed 5699544 6 Problem Common migraine G43.009 Active confirmed 560 39321 Problem Nicotine addiction F17.200 Active confirmed 88656587 Problem Vitamin D deficiency, unspecified E55.9 Active con firmed 95695941 Problem Systemic lupus erythematosus, unspecified M32.9 Active confirmed 45410426 Problem GERD (gastroesophageal reflux disease) K21.9 A ctive confirmed 523736992 Problem DJD (degenerative joint disease), cervical M50.30 Active confirmed 74669828 Problem Folliculitis L73.9 Active confirmed 1021729 6 Problem Cervical cancer screening Z12.4 Active confirmed 772424979 Problem Nephrolithiasis N20.0 Active confirmed 9557 0007 Problem Breast cancer screening Z12.39 Active confirmed 431555743 Problem Liver lesion, right lobe K76.89 Active confirmed 894198102 Problem 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 Active confirmed 046391622939862 Problem Abnormal uterine bleeding (AUB) N93.9 Active confirmed 78939325413048 Problem Long-term use of Plaquenil Z79.899 Active confirmed 094922753 Problem KCS (keratoconjunctivitis sicca) M35.01 Active confirmed 912806501 Problem Hyperandrogenemia E28.1 Active confirmed 37 0900103 Problem 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 Active confirmed 79088767817007 ALLERGIES Allergen (clinical drug ingredient) Drug/Non Drug Allergy do cumented on EMR Reaction Allergy Type Onset Date Status Compazine Rash Drug Allergy Active ENCOUNTERS from 1979 to 2021-03-05 Encounter Location Date Provider Diagnosis [facility] Elio Barrientos5 [facility] [phone] [place] [address] Feb, Link Garcia Systemic lupus erythematosus , unspecified M32.9 IMMUNIZATIONS Vaccine Route Administration Date Status Influenza 18 yrs & older Flublok IM Intramuscular Apr 11, 2019 Administered COVID-19 dose #1 given elsewhere Unspecified IM [...] IM Intramuscular Mar 14, 2014 Admi nistered Influenza 6mo & up Fluzone [...] School Language: Question Answer Notes Languages spoken: Uzbek Caodaism: Question Answer Notes Caodaism 21 Taoism Sexual Hx: Question Answer Notes Had sex [...] Notes Start Da te End Date Status Hydroxychloroquine 200 mg 1 tab orally bid for 90 day(s) Active [place] 5-325 MG 1 tablet as needed Orally as needed MDD:1 for 30 day(s) Feb, Active Topiramate 50 MG 1 tablet Orally Twice a day for 30 day(s) Active tiZANidine HCl 2 MG 1 tab Orally TID prn flares for 30 Days Active Naratriptan HCl 2.5 MG 1 tablet Orally Once a day prn headache for 30 Days Active Omeprazole 40 MG 1 cap Orally every morning for 30 day(s) Active Bactroban 2% as directed applied topicall y twice a day x 7 days with B arm folliculitis flares-disp cream! for 30 day(s) Active Spironolactone 50 MG 1 tablet with food Orally every morning for 30 day(s) Active HYDROcodone-Acetaminophen 5-325 MG 1 tablet as needed Orally Daily as needed for 30 Days September, Active Vitamin D 5000 1 tablet Orally Once a day for 90 day(s) Active Ketoconazole 2 % 5 ml Externally Daily, leave in hair x 5 minute s for 30 days Active tiZANidine HCl 2 MG TAKE ONE TABLET BY MOUTH THR EE TIMES A DAY NEEDED FOR FLARES for 20 Active Mometasone Furoate 0.1 % 1 application to affected ar ea Externally Twice a day x 5 days c flares for 30 day(s) Ac tive PROCEDURES No Information RESULTS No Results REASON FOR VISIT Rx Directions MEDICAL (GENERAL) HISTORY Type Description Date Medical [...] normal EGD/colon-R 05/2016 [facility] [place] [facility] Hospitalization History ER for bilateral thigh pain 6 Hospitalization History chest pain, then abdominal p ain p morphine IV-- CTA chest/CT AP c/w enteritis, normal CBCD, AST/ALT 38/107, Dexilant changed to Pepcid 08/21- Goals Section No Information Health Concerns No Information MEDICAL EQUIPMENT No Information MENTAL STATUS No Information FUNCTIONAL STATUS No Information ASSESSMENTS Encounter Date Diagnosis Assessment Notes Treatment Notes Treatm ent Clinical Notes Feb, Systemic lupus erythematosus, unspecified (ICD-1 0 - M32.9) PLAN OF TREATMENT Medication Medication Name Sig Start Date Stop Date Topiramate 50 MG 1 tablet Orally Twice a day for 30 day(s) Naratriptan HCl 2.5 MG 1 tablet Orally Once a day prn headache f or 30 Days [place] 5-325 MG 1 tablet as needed Orally as needed MDD: 1 for 30 day(s) Feb, Ketoconazole 2 % 5 ml Externally Daily, leave in hair x 5 minute s for 30 days tiZANidine HCl 2 MG 1 tab Orally TID prn flares for 30 Days Omeprazole 40 MG 1 cap Orally every morning for 30 day(s) Bactroban 2% as directed applied topicall y twice a day x 7 days with B arm folliculitis flares-disp cream! for 30 day(s) Mometasone Furoate 0.1 % 1 application to affected ar ea Externally Twice a day x 5 days c flares for 30 day(s) Spironolactone 50 MG 1 tablet with food Orally every morning for 30 day(s) Hydroxychloroquine 200 mg 1 tab orally bid for 90 day(s) Vitamin D 5000 1 tablet Orally Once a day for 90 day(s) Next Appt Details Provider Name:Link Garcia, 2021-03-12 0 4:00:00 PM, [address] [place] [address] , [place], [address], Provider Name:Link Garcia, 2021-08-15 0 8:15:00 AM, [address] [place] [address] , [place], [address], Insurance Providers Payer Name Payer Address Payer Phone Insured Name Patient Relati onship to Insured Coverage Start Date Coverage End Date [facility] [address] [facility] [id number] TOMY MONROY MEDICAID [facility] [address] [facility] [address] TOMY MONROY
--- OUTSIDE RECORDS SUMMARY | 2021-04-05 07:07 | CCD ---
Author Author [facility] Organization [facility] Address Unknown Phone Unavailable Care Team Providers Care Rail Bonder Name Role Phone Jose, Link Unavailable PROBLEMS ALLERGIES ENCOUNTERS from 1979 to 2021-03-19 IMMUNIZATIONS SOCIAL HISTORY REASON FOR REFERRAL No Information VITAL SIGNS MEDICATIONS PROCEDURES from 1979 to 2021-03-19 RESULTS No Results REASON FOR VISIT MEDICAL (GENERAL) HISTORY Goals Section Health Concerns MEDICAL EQUIPMENT No Information MENTAL STATUS FUNCTIONAL STATUS ASSESSMENTS PLAN OF TREATMENT Insurance Providers
--- OUTSIDE RECORDS SUMMARY | 2021-04-05 07:07 | CCD ---
Author Author [facility] Organization [facility] Address Unknown Phone Unavailable Care Team Providers Care Real Estate Assistant Name Role Phone Link Garcia Unavailable PROBLEMS Type Condition ICD9-CM Code CZS39-CM Code Onset Dates Condition S tatus W/U Status Risk SNOMED Code Notes Problem Nicotine addiction F17.200 Active confirmed 62071460 Problem Anal fissure K60.2 Active confirmed 5517528 6 Problem Systemic lupus erythematosus, unspecified M32.9 Active confirmed 89758116 Problem Common migraine G43.009 Active confirmed 560 01142 Problem DJD (degenerative joint disease), cervical M50.30 Active confirmed 15916607 Problem Vitamin D deficiency, unspecified E55.9 Active con firmed 77000122 Problem Abnormal uterine bleeding (AUB) N93.9 Active confirmed [id number] Problem GERD (gastroesophageal reflux disease) K21.9 A ctive confirmed 904444064 Problem Cervical cancer screening Z12.4 Active confirmed 713013799 Problem Nephrolithiasis N20.0 Active confirmed 9557 0007 Problem Long-term use of Plaquenil Z79.899 Active confirmed 954727841 Problem 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 Active confirmed 635117421401365 Problem Folliculitis L73.9 Active confirmed 4114007 6 Problem Cyst on ear Q18.1 Active confirmed 08955233 865404 Problem Liver lesion, right lobe K76.89 Active confirmed 902600726 Problem KCS (keratoconjunctivitis sicca) M35.01 Active confirmed 421994170 Problem Hyperandrogenemia E28.1 Active confirmed 37 2368795 Problem 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 Active confirmed 92629196472785 Problem Breast cancer screening Z12.39 Active confirmed 112882336 ALLERGIES Allergen (clinical drug ingredient) Drug/Non Drug Allergy do cumented on EMR Reaction Allergy Type Onset Date Status Compazine Rash Drug Allergy Active ENCOUNTERS from 1979 to 2021-03-15 Encounter Location Date Provider Diagnosis [facility] [place] [address] [facility] [facility] [phone] [place] [address] Mar, Link Garcia Hypermetropia of left eye H5 2.02 ; Cyst on ear Q18.1 ; 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 L05.91 ; Trochanteric bursitis M70.60 ; Systemic lupus erythematosus, unspecified M32.9 ; Encounter for immunization Z23 ; GERD (gastroesophageal reflux disease) K21.9 ; Seborrheic dermatitis of scalp L21.9 ; Common migraine G43.009 ; KCS (keratoconjunctivitis sicca) M35.01 ; Hyperandrogenemia E28.1 ; Abnormal uterine bleeding (AUB) N93.9 ; Long-term use of Plaquenil Z79.899 ; Nephrolithiasis N20.0 ; Folliculitis L73.9 ; DJD (degenerative joint disease), cervical M50.30 ; Liver lesion, right lobe K76.89 ; Vitamin D deficiency, unspecified E55.9 ; Nicotine addiction F17.200 ; Breast cancer screening Z12.39 ; Anal fissure K60.2 and Cervical cancer screening Z12.4 IMMUNIZATIONS Vaccine Route Administration Date Status Influenza 18 yrs & older Flublok IM Intramuscular Feb 13, 2021 Administered Influenza 18 yrs & older Flublok IM Intramuscular Apr 11, 2019 Administered Influenza 6mo & up Fluzone IM Intramuscular Apr 22, 2018 Admi nistered Influenza 6mo & up Fluzone IM Intramuscular Apr 10, 2017 Admi nistered Influenza 6mo & up Fluzone IM Intramuscular Feb 21, 2016 Admi nistered Influenza 6mo & up Fluzone IM Intramuscular Feb 01, 2015 Admi nistered COVID-19 dose #1 given elsewhere [...] School Language: Question Answer Notes Languages spoken: Setswana Christianity: Question Answer Notes Christianity 21 Latter-Day Sexual Hx: Question Answer Notes Had sex [...] REASON FOR REFERRAL No Information VITAL SIGNS Weight 144.8 lbs Mar, Weight-kg 65.68 kg Mar, Height 63 in Mar, BMI 25.65 kg/m2 Mar, Heart Rate 89 /min Mar, Respiratory Rate 18 /min Mar, Temperature 98.1 degrees Fahrenheit Mar, Oximetry 100% Mar, Blood pressure systolic 110 mm Hg Mar, Blood pressure diastolic 78 mm Hg Mar, MEDICATIONS Medication SIG (Take, Route, Frequency, Duration) Notes Start Da te End Date Status Bactroban 2% as directed applied topicall y twice a day x 7 days with B arm folliculitis flares-disp cream! for 30 day(s) Active Hydroxychloroquine 200 mg 1 tab orally bid for 90 day(s) Active [place] 5-325 MG 1 tablet as needed Orally as needed MDD:1 for 30 day(s ) Active Spironolactone 50 MG 1 tablet with food Orally every morning for 30 day(s) Active Topiramate 50 MG 1 tablet Orally Twice a day for 30 day(s) Active Mometasone Furoate 0.1 % 1 application to affected ar ea Externally Twice a day x 5 days c flares Active Ketoconazole 2 % 5 ml Externally Daily, leave in hair x 5 minute s for 30 days Active HYDROcodone-Acetaminophen 5-325 MG 1 tablet as needed Orally Daily as needed for 30 Days September, Active tiZANidine HCl 2 MG 1 tab Orally TID prn flares for 30 Days Active Omeprazole 40 MG 1 cap Orally every morning for 30 day(s) Active Vitamin D 5000 1 tablet Orally Once a day for 90 day(s) Active Naratriptan HCl 2.5 MG 1 tablet Orally Once a day prn headache for 30 Days Active PROCEDURES No Information RESULTS No Results REASON FOR VISIT ear cyst removal MEDICAL (GENERAL) HISTORY Type Description Date Medical History SLE/Sjogren's syndrome with skin and joint involvement, chronic Plaquenil use//- APS w/u Medical History GERD/hiatal hernia-10/2015 UG I c DAVID to thoracic inlet//05/2016 normal EGD/colon-R Medical History history of Spitz [...] History severe KCS-dx 02/2017 Vasiliy Surgical History L acoustic neuroma resection Surgical History cholecystectomy Surgical History strabismus surgery x 2 Surgical History normal EGD/colon-R 05/2016 Surgical History breast reduction-DR. [facility] breast ce nter [place] 12/11/16 Hospitalization [...] Notes Treatment Notes Treatm ent Clinical Notes Mar, Cyst on ear (ICD-10 - Q18.1) R posterior lobule-favor 2 cell phone use (has to use R ear due to L deafness, advised to use speaker) The patient assumes risk of bleeding, infection, scarring and recurrence. See Lesion Documentation Form for the site and size of the lesion. Procedure: excision of R posterior loubule 6 mm inclusion cyst . The lesion was anesthetized with 2.0 cc of 1 percent lidocaine with epinephrine 1: 100, 000,. T he area was prepped and draped in sterile fashion. A linear incision was made over the cyst and the cyst wall and contents were meticulously removed with dificulty. Epidermis was closed with simple interrupted 6-0 Ethilon sutures. Estimated blood loss was less than 2 cc. The patient tolerated the procedure well. The patient was instructed to gently wash the site with soap and water twice a day using antibiotic ointment until the surgical site is healed over. The patient is to return to office or call the on-call physician immediately with any concerns or signs of superinfection. Mar, Hypermetropia of left eye (ICD-10 - H52.02) spherocylinder 4D/12-2D per Alexei Mar, 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 (ICD-10 - L05.91) 02/13/21 given recurrent moderate flare at same sight; ergo, referred to Kenneth 04/11/19 2 flares at same site (07/2018, 11/2018) Mar, Trochanteric bursitis (ICD-10 - M70.60) C; [facility] 09/04/20 1W B TB acute flare p moving to new house; ergo, home PT, no sleep on side and pred 30/6D Mar, Systemic lupus erythematosus, unspecified (ICD-1 0 - M32.9) chronic mild malar and mild non-erosive arthritis on HCQ 200 QD /patient aware that HCQ is Class C and will use control if sexually actve (02/13/21 - H pylori IgG) 01/01/21 stable HCQ surveillance apt-Dr. Dago Kahn, OD 02/13/21 stable at 8.4/15.2, 84, 0.3/2 09/04/20 C3/4 100/17, -dsDNA 04/18/20 8.1/14.2, 84/301K, UPEE 0.1, C3/4 stable at 99/18 (05/2018 C3/4 129/18), CRP 0.3-Juan, but mild skin flare c SD; therefore, HCQ 200 QD to BID 08/18/19 favor ~2W mild B knee, ACLE malar rash flare 2 stress re COVID; will obtain baseline BW, favor pred 5 BID taper over 14-21D 04/11/19 made [facility] apt today for 05/31/19 830 AM-patient aware-STRONGLY encouraged to go, in family and patient unable to RS 04/2018 L jewish rash as per rash beginning Mar 2018 since off HCQ since 02/2018 2 stress over breakup c BF 10/2015 <0.3/3, 1:320 nucleolar, stable CBCD/CMP 08/2014 CRP 0.5, MICHAEL 1:640 homo/nucleolar Mar, Encounter for immunization (ICD-10 - Z23) Mar, GERD (gastroesophageal reflux disease) (ICD-10 - K21.9) Stable on omep 40 qAM 06/01/20 given resolved sx, decrased to 40 qAM 04/20/20 ~4W flare c increased COVID stress, loss of GM and GF and increased caffeine to 18 oz QD; therefore, + omep 40 BID x 6W (had been off omep 40 and famo 40 BID since 02/2018 c BF breakup) 05/2016 normal EGD/colon-R 09/2016 Dexilant 60 changed to Pepcid 40 BID 10/2015 UGI c DAVID to thoracic inlet-done given persistent AM nausea c vomiting on omeprazole 40 AC BID; therefore, changed to Dexilant 60 AC dinner with resolution of symptoms and scheduled for EGD 03/04/16 c Reindl Mar, Seborrheic dermatitis of scalp (ICD-10 - L21.9) ant hairline, B ext auditory meatus 04/20/20 increased c stress/cold since ~02/2020; therefore, itra 200 QD x 3D and keto 2% shampoo QD c MF QD Mar, Common migraine (ICD-10 - G43.009) on topir 50 BID c cielo 2.5/Vicodin 5 as abortive prior on topir 200 qd and Imitrex 25 qd prn since 06/2012 changed burt 50 to beryl 2.5 given dizziness for ~3H p (never started) 10/2018 increased to topir 50 BID and readded burt 50 prn 04/2018 restarted topir at 25 BID given mild increased migraine f/s since off since 02/2018 c BF breakup 09/2014 changed back to Topamax 50 BID given worked better for migraine and helped c weight, patient/partner to use 2 forms birht-control 03/14/14 decreased to qW c propranolol 10 TID s OH symptoms, but vivid dreams that keep patient up qhs, therefore changed to metoprolol tartrate 25 BID s se 02/09/2014 c resolved dysmetria and - Romberg, avoid Topamax 50 BID given class D and "doing nothing to prevent ", therefore propranolol 10 TID and continue Vicodin 5 qd prn migraine (which she feels works better than Imitrex) 02/03/2014 MRI brain s/c c several punctate T2 increased signal in subcortical white matter but not c/w last [facility] MRI brain s/c from 04/18/2008 where this was not described, favor 2 migraine 02/02/2014 favor status migrainous c complex migraine, but given previous L acoustic neuroma surgery c new LUE decreased sensory exam and dysmetria, checked STAT MRI brain s/c 01/2012 HCO3 21, Cl 110 on Topamax 200 qd therefore 05/2012 24H urine checked which was normal except low citrate 254 (320-1240), therefore if restart Topamax, give c K citrate Mar, KCS (keratoconjunctivitis sicca) (ICD-10 - M35.0 1) OU severe, favor parital cause of migraine 02/2017 Vasiliy + gtts, + plugs "mad worse" 02/2017 OD upper int hordeolum Mar, Hyperandrogenemia (ICD-10 - E28.1) cw PCOS (no acne, striae, hirsutism, HTN) 02/13/21 L/F /12/2018 Dr. Nunes offerred BTL, ablation (rather than TH); therefore patient defers surgery for now prefer to avoid OC given SLE, liver lesion (but no APS), migraine (but no aura), nicotine use >35Y (but <15 QD) 09/04/20 49/2.7 10/2018 test down to 58/2.9, but now menses q2W 06/07/18 + mary 50 qAM 2 AUB (oligomennoraghia) c improvement of regularity 05/2018 test 80/4.4 05/2018 prl 9.7 05/2018 LH/FSH 10.5/9.7 05/2018 17OH-PG 108 05/2018 DHEA-S 378 (15-671)-favor 2 PCOS 05/2018 fibroid uterus, 29 mm hypoecho L ovarian cyst 05/2018 normal B adrenal US Mar, Abnormal uterine bleeding (AUB) (ICD-10 - N93.9) AUB-oligo, 1 heavy-px defers rx including offered IUD vs DP offered by Dr. Frank; new onset ~10/2016 cause: PCOS +/- leiomyoma prefer to avoid OC given SLE, liver lesion (but no APS), migraine (but no aura), nicotine use >35Y (but <15 QD) 10/2018 patient prefers tc hyster given NO desire for children; therefore, referred to Des 06/07/18 + mary 50 qAM c menorrhagia q2-3M to q2W 05/2018 fibroid uterus, 29 mm hypoecho L ovarian cyst Mar, Long-term use of Plaquenil (ICD-10 - Z79.899) as per SLE Mar, Nephrolithiasis (ICD-10 - N20.0) Encouraged at least 3L water daily / RF: sister c kidney stone at 40Y, on chronic topir 06/13/20 B renal US WNL (04/18/20 urine pH 6.0-favor >7.5 given probable CO stone--topir usually raises pH, lowers ucitriate; therefore, given she defers K citrate, advise 8 oz lemonade QD 05/2018 24H volume only 600cc; therefore, encouraged 2-3L QD and + K citrate 10 BID, but px defers to take 04/13/17 referred to Urology given persistent pain/hydro and concern UVJO; but patient passed on own but did not see/retain stone 04/12/17 [facility] again given recurrent pain, CT AP stone now in distal ureter 1 cm from UVJ c stable hydro, WBC 9.8, 18/1.1, K 3.8, Bactrim DS BID started despite 04/10, 04/12 UCX contaminated 04/10/17 persistent, albeit lessened, R flank pain-therefore, + Flomax 0.4 BID, push fluids, strain urine, HC q6H prn pain, hold NSAID for now given NIKO, WBC down to 9.8, 18/1.1, 3.8 04/09/2017 first of life-CT c R 4 mm stone proximal R ureter (but also several tiny R nephroliths) c minimal R hydronephrosis, 19/1.5, K 3.4, WBC 10.4, s LUTs, UCX P Mar, Folliculitis (ICD-10 - L73.9) B arms-advised NOT to scratch nor apply steroid 12/2016 started muco cr BID 7D c flares Mar, DJD (degenerative joint disease), cervical (ICD- 10 - M50.30) Continues daily home PT and HC QD prn flare 07/2016 referred for B breast reduction consideration-triple D-planning for fall Contingency: trigger injection 06/2015 added Zanaflex 2 BID (start 1 BID) c improvement and checked MRI as per using Flexeril 10 qhs c benefit but too tiring to take during day Mobic as per SLE 02/2015 PT [facility] x 4W s benefit; therefore, stopped 05/2014 started Flexeril 10 TID prn which helps when using ~3x qW, i would not cover [employer] Mar, Liver lesion, right lobe (ICD-10 - K76.89) R lobe liver favor cw focal nodular hyperplasia repeat liver US 02/202102/26/18 stable MRI abdomen (done at [facility]) and per review by Dr. Barnes who felt given 6Y stability was cw FNH and follow by US by PCP q3-4Y, and made fu prn 04/2016 Dr. Barnes favored focal nodular hyperplasia>hepatic adenoma 01/2016 liver US c RLL 40 mm hyper vascular lesion-? atypical hemangioma vs FNH and 20 mm R posterior h-both similar to 11/2013; therefore, MRI A s/c marisol performed revealing 40 mm posterior segment of R lobe lesion which by US measured 18 mm in 2006. The case was discussed in detail with Dr. Yosvany Tse ps, [facility] head of Radiology. He could not rule out hepatic adenoma and recommended dynamic CT to further clarify vs surgical opinion abundio in patient who was prior on OCP from [age]Y with h/o SLE and acoutic neuroma. 05/2016 normal LFTs 05/2016 PT/PTT 05/2016 AFP 2.5 Mar, Vitamin D deficiency, unspecified (ICD-10 - E55. 9) 1-2 servings dietary calcium 02/13/21 23, 9.3, 59; ergo, encouraged compliance 06/2015 34, 9.4 on 5K QD 01/2015 15, 8.9, changed Drisdol qW to D3 5K QD by i 04/2014 17, 8.4, encouraged compliance AGAIN 04/2013 13, therefore encouraged compliance 01/2012 46 on Drisdol 09/2011 vitamin D 9-therefore Drisdol started Mar, Nicotine addiction (ICD-10 - F17.200) Encouraged to stay off No intention at this time Mar, Breast cancer screening (ICD-10 - Z12.39) 08/2020 B C1 mammogram Mar, Anal fissure (ICD-10 - K60.2) Stable on current regimen 05/[address] Calle-unable to tolerate Rectiv 2 headaches; therefore, changed to nifedipine cream which resolved symptoms 02/2015 referred to Ronald-began p period of softer BMs Mar, Cervical cancer screening (ICD-10 - Z12.4) Pap/pelvic as per Zac Mar, Other 09/04/20 92/54/59 10/2015 lipids 60/39/85, CRP <0.3 04/18/20 1.2, 1.0 04/18/20 1.2, 1.0 10/2015 TSH 1.9, FT4 1.1 PLAN OF TREATMENT Medication Medication Name Sig Start Date Stop Date Bactroban 2% as directed applied topicall y twice a day x 7 days with B arm folliculitis flares-disp cream! for 30 day(s) Omeprazole 40 MG 1 cap Orally every morning for 30 day(s) Mometasone Furoate 0.1 % 1 application to affected ar ea Externally Twice a day x 5 days c flares tiZANidine HCl 2 MG 1 tab Orally TID prn flares for 30 Days Vitamin D 5000 1 tablet Orally Once a day for 90 day(s) [place] 5-325 MG 1 tablet as needed Orally as needed MDD:1 for 30 day(s) Spironolactone 50 MG 1 tablet with food Orally every morning for 30 day(s) Naratriptan HCl 2.5 MG 1 tablet Orally Once a day prn headache f or 30 Days Topiramate 50 MG 1 tablet Orally Twice a day for 30 day(s) Hydroxychloroquine 200 mg 1 tab orally bid for 90 day(s) Ketoconazole 2 % 5 ml Externally Daily, leave in hair x 5 minute s for 30 days Treatment Notes Assessment Notes Clinical Notes Folliculitis B arms-advised NOT t o scratch nor apply steroid12/2016 started muco cr BID 7D c flares Cyst on ear R posterior lobule-f avor 2 cell phone use (has to use R ear due to L deafness, advised to use speaker)The patient assumes risk of bleeding, infection, scarring and recurrence. See Lesion Documentation Form for the site and size of the lesion. Procedure: excision of R posterior loubule 6 mm inclusion cyst . The lesion was anesthetized with 2.0 cc of 1 percent lidocaine with epinephrine 1: 100, 000,. The area was prepped and draped in sterile fashion. A linear incision was made over the cyst and the cyst wall and contents were meticulously removed with dificulty. Epidermis was closed with simple inter rupted 6-0 Ethilon sutures. Estimated blood loss was less than 2 cc. The patient tolerated the procedure well. The patient was instructed to gently wash the site with soap and water twice a day using antibiotic ointment until the surgical site is healed over. The patient is to return to office or call the on-call physician immediately with any concerns or signs of superinfection. Nephrolithiasis Encouraged at least 3L water daily / RF: sister brian kidney stone at 40Y, on chronic topir06/13/20 B renal US WNL(04/18/20 urine pH 6.0-favor >7.5 given probable CO stone--topir usually raises pH, lowers ucitriate; therefore, given she defers K citrate, advise 8 oz lemonade QD05/2018 24H volume only 600cc; therefore, encouraged 2-3L QD and + K citrate 10 BID, but px defers to take04/13/17 referred to Urology given persistent pain/hydro and concern UVJO; but patient passed on own but did not see/retain stone04/12/17 [facility] again given recurrent pain, CT AP stone now in distal ureter 1 cm from UVJ c stable hydro, WBC 9.8, 18/1.1, K 3.8, Bactrim DS BID started despite 04/10, 04/12 UCX [id number]/8/17 persistent, albeit lessened, R flank pain-therefore, + Flomax 0.4 BID, push fluids, strain urine, HC q6H prn pain, hold NSAID for now given NIKO, WBC down to 9.8, 18/1.1, 3.812/11/2016 first of life-CT c R 4 mm stone proximal R ureter (but also several tiny R nephroliths) c minimal R hydronephrosis, 19/1.5, K 3.4, WBC 10.4, s LUTs, UCX P Hypermetropia of left eye spherocylinder 4D/12-2D per Dembrowki Liver lesion, right lobe R lobe liver fa vor cw focal nodular hyperplasiarepeat liver US / stable MRI abdomen (done at [facility]) and per review by Dr. Barnes who felt given 6Y stability was cw FNH and follow by US by PCP q3-4Y, and made fu prn106/2015 Dr. Barnes favored focal nodular hyperplasia>hepatic adenoma01/2016 liver US c RLL 40 mm hyper vascular lesion-? atypical hemangioma vs FNH and 20 mm R posterior h-both similar to 11/2013; therefore, MRI A s/c marisol performed revealing 40 mm posterior segment of R lobe lesion which by US measured 18 mm in 2006. The case was discussed in detail with Dr. Yosvany Gotti, [facility] head of Radiology. He could not rule out hepatic adenoma and recommended dynamic CT to further clarify vs surgical opinion abundio in patient who was prior on OCP from 16- 19Y with h/o SLE and acoutic neuroma.05/2016 normal LFTs05/2016 PT/PTT AFP 2.5 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 02/13/21 given recurrent moderate flare at same sight; ergo, referred to Wjroqi86/9/19 2 flares at same site (07/2018, 11/2018) DJD (degenerative joint disease), cervical Continues daily home PT and HC QD prn flare07/2016 referred for B breast reduction consideration-triple D-planning for fallContingency: trigger injection06/2015 added Zanaflex 2 BID (start 1 BID) c improvement and checked MRI as per MHusing Flexeril 10 qhs c benefit but too tiring to take during dayMobic as per SLE02/2015 PT [facility] x 4W s benefit; therefore, stopped05/2014 started Flexeril 10 TID prn which helps when using ~3x qW, i would not cover [facility] Trochanteric bursitis C; [facility]CI09/04/20 1W B TB acute flare p moving to new house; ergo, home PT, no sleep on side and pred 30/6D Nicotine addiction Encouraged to stay o ffNo intention at this time Systemic lupus erythematosus, unspecified chronic mild malar and mild non- erosive arthritis on HCQ 200 QD /patient aware that HCQ is Class C and will use control if sexually actve (02/13/21 - H pylori IgG)01/01/21 stable HCQ surveillance apt-Dr. Dago Kahn, OD02/13/21 stable at 8.4/15.2, 84, 0.3/26/08/20 C3/4 100/17, -dsDNA04/18/20 8.1/14.2, 84/301K, UPEE 0.1, C3/4 stable at 99/18 (05/2018 C3/4 129/18), CRP 0.3-Juan, but mild skin flare c SD; therefore, HCQ 200 QD to BID08/18/19 favor ~2W mild B knee, ACLE malar rash flare 2 stress re COVID; will obtain baseline BW, favor pred 5 BID taper over 14- 21D106/12/18 made [facility] apt today for 05/31/19 830 AM-patient aware-STRONGLY encouraged to go, in family and patient unable to RS04/2018 L jewish rash as per rash beginning Mar 2018 since off HCQ since 02/2018 2 stress over breakup c BF10/2015 <0.3/3, 1:320 nucleolar, stable CBCD/CMP08/2014 CRP 0.5, MICHAEL 1:640 homo/nucleolar Vitamin D deficiency, unspecified 1-2 se rvings dietary hcxxsut71/13/21 23, 9.3, 59; ergo, encouraged compliance06/2015 34, 9.4 on 5K QD01/2015 15, 8.9, changed Drisdol qW to D3 5K QD by i106/2013 17, 8.4, encouraged compliance AGAIN04/2013 13, therefore encouraged compliance01/2012 46 on Drisdol09/2011 vitamin D 9-therefore Drisdol started GERD (gastroesophageal reflux disease) S table on omep 40 qAM1 given resolved sx, decrased to 40 qAM106/21/19 ~4W flare c increased COVID stress, loss of GM and GF and increased caffeine to 18 oz QD; therefore, + omep 40 BID x 6W (had been off omep 40 and famo 40 BID since 02/2018 c BF breakup)05/2016 normal EGD/colon- Dexilant 60 changed to Pepcid 40 BID10/2015 UGI c DAVID to thoracic inlet-done given persistent AM nausea c vomiting on omeprazole 40 AC BID; therefore, changed to Dexilant 60 AC dinner with resolution of symptoms and scheduled for EGD 03/04/16 c Reindl Anal fissure Stable on current re gimen05/[address] Calle-unable to tolerate Rectiv 2 headaches; therefore, changed to nifedipine cream which resolved ufqzrmsi95/2015 referred to Ronald-began p period of softer BMs Seborrheic dermatitis of scalp ant hairl ine, B ext auditory ykurof85/18/20 increased c stress/cold since ~02/2020; therefore, itra 200 QD x 3D and keto 2% shampoo QD c MF QD Breast cancer screening 08/2020 B C1 mamm ogram Cervical cancer screening Pap/pelvic as per Zac Long-term use of Plaquenil as per SLE Abnormal uterine bleeding (AUB) AUB-olig o, 1 heavy-px defers rx including offered IUD vs DP offered by Dr. Frank; new onset ~10/2016cause: PCOS +/- leiomyomaprefer to avoid OC given SLE, liver lesion (but no APS), migraine (but no aura), nicotine use >35Y (but <15 QD)10/2018 patient prefers tc hyster given NO desire for children; therefore, referred to Gideon06/07/18 + mary 50 qAM c menorrhagia q2-3M to q2W05/2018 fibroid uterus, 29 mm hypoecho L ovarian cyst Common migraine on topir 50 BID c no ra 2.5/Vicodin 5 as abortiveprior on topir 200 qd and Imitrex 25 qd prn since changed burt 50 to beryl 2.5 given dizziness for ~3H p (never started)10/2018 increased to topir 50 BID and readded burt 50 prn106/2017 restarted topir at 25 BID given mild increased migraine f/s since off since 02/2018 c BF breakup09/2014 changed back to Topamax 50 BID given worked better for migraine and helped c weight, patient/partner to use 2 forms birht-/11/14 decreased to qW c propranolol 10 TID s OH symptoms, but vivid dreams that keep patient up qhs, therefore changed to meto prolol tartrate 25 BID s se02/09/2014 c resolved dysmetria and - Romberg, avoid Topamax 50 BID given class D and "doing nothing to prevent ", therefore propranolol 10 TID and continue Vicodin 5 qd prn migraine (which she feels works better than Imitrex)02/03/2014 MRI brain s/c c several punctate T2 increased signal in subcortical white matter but not c/w last [facility] MRI brain s/c from where this was not described, favor 2 uxblhuwi44/2/2014 favor status migrainous c complex migraine, but given previous L acoustic neuroma surgery c new LUE decreased sensory exam and dysmetria, checked STAT MRI brain / HCO3 21, Cl 110 on Topamax 200 qd therefore 05/2012 24H urine checked which was normal except low citrate 254 (320-1240), therefore if restart Topamax, give c K citrate KCS (keratoconjunctivitis sicca) OU ronnie re, favor parital cause of [id number]/2017 Vasiliy + gtts, + plugs "mad worse"02/2017 OD upper int hordeolum Hyperandrogenemia cw PCOS (no acne, st riae, hirsutism, HTN)02/13/21 L/F Dr. Nunes offerred BTL, ablation (rather than TH); therefore patient defers surgery for now prefer to avoid OC given SLE, liver lesion (but no APS), migraine (but no aura), nicotine use >35Y (but <15 QD) 09/04/20 49/2. test down to 58/2.9, but now menses q2W06/07/18 + mary 50 qAM 2 AUB (oligomennoraghia) c improvement of regularity05/2018 test 80/4.4 05/2018 prl 9.7 05/2018 LH/FSH 10.5/9.7 05/2018 17OH-PG 108 05/2018 DHEA-S 378 (57-546)-favor 2 PCOS 05/2018 fibroid uterus, 29 mm hypoecho L ovarian cyst 05/2018 normal B adrenal US Future Test Test Name Order Date TESTOSTERONE FREE & TOTAL 20210613 Comprehensive Metabolic Profile (CMP) 20210613 CBC with Differential 20210613 Dehydroepiandrosterone Sulfate 55350532 VITAMIN D 25-HYDROXY 77216141 PTH INTACT 59179168 LUPUS TYPE ANTICOAGULANT SCREE 20210613 ANTI-CARDIOLIPIN ANTIBODIES 20210613 BETA-2 GLYCOPROTEIN 1 JACOB FAUSTO 20210613 Next Appt Details , BW 1W prior Reason: Provider Name:Link Garcia, 2021-03-19 0 8:00:00 AM, [address] [place] [address], , [place], [address], Provider Name:Link Garcia 2021-08-15 0 8:15:00 AM, [address] [facility], , [place], [address], Insurance Providers Payer Name Payer Address Payer Phone Insured Name Patient Relati onship to Insured Coverage Start Date Coverage End Date [employer]ICA[employer] [address] [facility] [id number] TOM[place] MONROY [facility] [id number] [facility] [id number] TOMY MONROY
--- OUTSIDE RECORDS SUMMARY | 2021-04-05 07:07 | CCD ---
Author Author [facility] em[facility] Organization [facility] ems Address Unknown Phone Unavailable Care Team Providers Care Installation And Service Technician Name Role Phone Link Garcia Unavailable PROBLEMS Type Condition ICD9-CM Code WWF93-AK Code Onset Dates Condition S tatus W/U Status Risk SNOMED Code Notes Problem Nicotine addiction F17.200 Active confirmed 43215871 Problem Anal fissure K60.2 Active confirmed 2261419 6 Problem Systemic lupus erythematosus, unspecified M32.9 Active confirmed 68687967 Problem Common migraine G43.009 Active confirmed 560 91610 Problem DJD (degenerative joint disease), cervical M50.30 Active confirmed 00341151 Problem Vitamin D deficiency, unspecified E55.9 Active con firmed 04602350 Problem Liver lesion, right lobe K76.89 Active confirmed 381019296 Problem Folliculitis L73.9 Active confirmed 3081441 6 Problem Cervical cancer screening Z12.4 Active confirmed 289804105 Problem 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 Active confirmed 57694490496952 Problem Abnormal uterine bleeding (AUB) N93.9 Active confirmed 51507035281933 Problem Breast cancer screening Z12.39 Active confirmed 370795660 Problem GERD (gastroesophageal reflux disease) K21.9 A ctive confirmed 703477765 Problem Nephrolithiasis N20.0 Active confirmed 9557 0007 Problem Long-term use of Plaquenil Z79.899 Active confirmed 294250730 Problem KCS (keratoconjunctivitis sicca) M35.01 Active confirmed 303313313 Problem Hyperandrogenemia E28.1 Active confirmed 37 4589622 ALLERGIES Allergen (clinical drug ingredient) Drug/Non Drug Allergy do cumented on EMR Reaction Allergy Type Onset Date Status Compazine Rash Drug Allergy Active ENCOUNTERS from 1979 to 2021-02-08 Encounter Location Date Provider Diagnosis [facility] Elio [address] [facility] [phone] [place] [address] Feb, 2021 Link Garcia IMMUNIZATIONS Vaccine Route Administration Date Status Influenza 6mo & up Fluzone IM Intramuscular Apr 22, 2018 Admi nistered Zofran 4mg/2mL Ondansetron IM Intramuscular Apr 20, 2017 Admi nistered COVID-19 dose #1 given elsewhere [...] School Language: Question Answer Notes Languages spoken: Ghanaian Jainism: Question Answer Notes Jainism 21 [employer] Sexual Hx: Question Answer Notes Had sex [...] Notes Start Da te End Date Status HYDROcodone-Acetaminophen 5-325 MG 1 tablet as needed Orally Daily as needed for 30 Days September, Active tiZANidine HCl 2 MG TAKE ONE TABLET BY MOUTH THR EE TIMES A DAY NEEDED FOR FLARES for 20 Active Hydroxychloroquine 200 mg 1 tab orally bid for 90 day(s) Active Omeprazole 40 MG 1 cap Orally every morning for 30 day(s) Active Vitamin D 5000 1 tablet Orally Once a day for 90 day(s) Active Bactroban 2% as directed applied topicall y twice a day x 7 days with B arm folliculitis flares-disp cream! for 30 day(s) Active predniSONE 5 MG (21) 6 tabs po x 1 day, then 5, 4 , 3, 2, 1, then stop Orally Daily with food for 6 days September, Activ e Ketoconazole 2 % 5 ml Externally Daily, leave in hair x 5 minute s for 30 days Active Topiramate 50 MG 1 tablet Orally Twice a day for 30 day(s) Active Naratriptan HCl 2.5 MG 1 tablet Orally Once a day prn headache for 30 Days Active Mometasone Furoate 0.1 % 1 application to affected ar ea Externally Twice a day x 5 days c flares for 30 day(s) Ac tive Spironolactone 50 MG 1 tablet with food Orally every morning for 30 day(s) Active PROCEDURES No Information RESULTS No Results REASON FOR VISIT cyst MEDICAL (GENERAL) HISTORY Type Description Date Medical [...] palsy, deafness Medical History 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 [place] [facility]16 Hospitalization History [...] Medication Name Sig Start Date Stop Date HYDROcodone-Acetaminophen 5-325 MG 1 tablet as needed Orally Daily as needed for 30 Days September, Naratriptan HCl 2.5 MG 1 tablet Orally Once a day prn headache f or 30 Days Mometasone Furoate 0.1 % 1 application to affected ar ea Externally Twice a day x 5 days c flares for 30 day(s) Hydroxychloroquine 200 mg 1 tab orally bid for 90 day(s) Ketoconazole 2 % 5 ml Externally Daily, leave in hair x 5 minute s for 30 days Topiramate 50 MG 1 tablet Orally Twice a day for 30 day(s) Omeprazole 40 MG 1 cap Orally every morning for 30 day(s) tiZANidine HCl 2 MG TAKE ONE TABLET BY MOUTH THR EE TIMES A DAY NEEDED FOR FLARES for 20 Vitamin D 5000 1 tablet Orally Once a day for 90 day(s) Bactroban 2% as directed applied topicall y twice a day x 7 days with B arm folliculitis flares-disp cream! for 30 day(s) predniSONE 5 MG (21) 6 tabs po x 1 day, then 5, 4 , 3, 2, 1, then stop Orally Daily with food for 6 days September, Spironolactone 50 MG 1 tablet with food Orally every morning for 30 day(s) Next Appt Details Provider Name:Link Garcia, 2021-02-13 0 8:45:00 AM, [address] [facility], , [place], [address], Insurance Providers Payer Name Payer Address Payer Phone Insured Name Patient Relati onship to Insured Coverage Start Date Coverage End Date [facility] [address] [facility] [id number] TOMY MONROY MEDICAID [facility] [address] [facility] [address] [phone] TOMY MONROY self
--- OUTSIDE RECORDS SUMMARY | 2021-04-05 07:08 | CCD ---
Author Author [facility] Address Unknown Phone Unavailable Care Team Providers Care Digital Traffic Coordinator Name Role Phone Molly Garcia MD Unavailable Unavailable Molly Garcia MD Unavailable Unavailable Molly Garcia MD Unavailable Unavailable Molly Garcia MD Unavailable Unavailable Molly Garcia MD Unavailable Unavailable Molly Garcia MD Unavailable Unavailable Molly Garcia MD Unavailable Unavailable Molly Garcia MD Unavailable Unavailable Molly Garcia MD Unavailable Unavailable Molly Garcia MD Unavailable Unavailable Molly Garcia MD Unavailable Unavailable Molly Garcia MD Unavailable Unavailable Molly Garcia MD Unavailable Unavailable Molly Garcia MD Unavailable Unavailable Molly Garica MD Unavailable Unavailable Molly Garcia MD Unavailable Unavailable Molly Garcia MD Unavailable Unavailable Molly Garcia MD Unavailable Unavailable Molly Garcia MD Unavailable Unavailable Molly Garcia MD Unavailable Unavailable Molly Garcia MD Unavailable Unavailable Molly Garcia MD Unavailable Unavailable Molly Garcia MD Unavailable Unavailable Molly Garcia MD Unavailable Unavailable Molly Garcia MD Unavailable Unavailable Molly Garcia MD Unavailable Unavailable Jose, E Link MD Unavailable Unavailable Jose, E Link MD Unavailable Unavailable Jose, E Link MD Unavailable Unavailable Jose, E Link MD Unavailable Unavailable Jose, E Link MD Unavailable Unavailable Jose, E Link MD Unavailable Unavailable Jose, E Link MD Unavailable Unavailable Jose, E Link MD Unavailable Unavailable Jose, E Link MD Unavailable Unavailable Jose, E Link MD Unavailable Unavailable Jose, E Link MD Unavailable Unavailable Jose, E Link MD Unavailable Unavailable Jose, E Link MD Unavailable Unavailable Jose, E Link MD Unavailable Unavailable Jose, E Link MD Unavailable Unavailable Jose, E Link MD Unavailable Unavailable Jose, E Link MD Unavailable Unavailable Jose, E Link MD Unavailable Unavailable Jose, E Link MD Unavailable Unavailable Jose, E Link MD Unavailable Unavailable Jose, E Link MD Unavailable Unavailable Jose, E Link MD Unavailable Unavailable Jose, E Link MD Unavailable Unavailable Jose, E Link MD Unavailable Unavailable Jose, E Link MD Unavailable Unavailable Jose, E Link MD Unavailable Unavailable Jose, E Link MD Unavailable Unavailable Jose, E Link MD Unavailable Unavailable Jose, E Link MD Unavailable Unavailable Jose, E Link MD Unavailable Unavailable Jose, E Link MD Unavailable Unavailable Jose, E Link MD Unavailable Unavailable Jose, E Link MD Unavailable Unavailable Jose, E Link MD Unavailable Unavailable Jose, E Link MD Unavailable Unavailable CHANLIECCO, C RONIT MD Unavailable Unavailable CHANLIECCO, C RONIT MD Unavailable Unavailable CHANLIECCO, C RONIT MD Unavailable Unavailable CHANLIECCO, C RONIT MD Unavailable Unavailable CHANLIECCO, C RONIT MD Unavailable Unavailable CHANLIECCO, C RONIT MD Unavailable Unavailable CHANLIECCO, C RONIT MD Unavailable Unavailable CHANLIECCO, C RONIT MD Unavailable Unavailable CHANLIECCO, C RONIT MD Unavailable Unavailable CHANLIECCO, C RONIT MD Unavailable Unavailable CHANLIECCO, C RONIT MD Unavailable Unavailable Re-disclosure Warning The records that you are about to access may contain information from federally-assisted alcohol or drug abuse programs. If such information is present, then the following federally mandated warning applies: This information has been disclosed to you from records protected by federal confidentiality rules (42 CFR part 2). The federal rules prohibit you from making any further disclosure of this information unless further disclosure is expressly permitted by the written consent of the person to whom it pertains or as otherwise permitted by 42 CFR part 2. A general authorization for the release of medical or other information is NOT sufficient for this purpose. The Federal rules restrict any use of the information to criminally investigate or prosecute any alcohol or drug abuse patient.The records that you are about to access may contain highly sensitive health information, the redisclosure of which is protected by Article 27-F of the [facility] Public Health law. If you continue you may have access to information: Regarding HIV / AIDS; Provided by facilities licensed or operated by the [facility] Office of Mental Health; or Provided by the [facility] Office for People With Developmental Disabilities. If such information is present, then the following [facility] mandated warning applies: This information has been disclosed to you from confidential records which are protected by state law. State law prohibits you from making any further disclosure of this information without the specific written consent of the person to whom it pertains, or as otherwise permitted by law. Any unauthorized further disclosure in violation of state law may result in a fine or group home sentence or both. A general authorization for the release of medical or other information is NOT sufficient authorization for further disc losure. Family History Family Member Name Family Member Gender Family Member Status Date o f Status Description Data Source(s) Unknown Male Problem MEDENT ([facility]) Unknown Unknown Problem MED[facility] ([facility] ) Encounters Encounter Providers Location Date Indications Data Source(s ) Outpatient [address] [facility] [place] [address] 03/19/2021 12:00:00 AM EST eCW1 (Counts include 234 beds at the [facility]) Outpatient [address] [facility] [place] [address] 03/12/2021 12:00:00 AM EST eCW1 (Counts include 234 beds at the [facility]) Unknown [address] [facility] [place] [address] 03/01/2021 12:00:00 AM EDT eCW1 (Counts include 234 beds at the [facility]) Unknown [address] [facility] [address] [address] 02/13/2021 12:00:00 AM EDT eCW1 (Counts include 234 beds at the [facility]) Unknown [address] [facility] [address] [address] 02/08/2021 12:00:00 AM EDT eCW1 (Counts include 234 beds at the [facility]) Unknown [address] [facility] [place] [address] 12/24/2020 12:00:00 AM EDT eCW1 (Counts include 234 beds at the [facility]) Unknown [address] [facility] [place] [address] 09/11/2020 12:00:00 AM EDT eCW1 (Counts include 234 beds at the [facility]) Unknown [address] [facility] [place] [address] 09/04/2020 12:00:00 AM EDT eCW1 (Counts include 234 beds at the [facility]) Outpatient [address] [facility] [place] [address] 09/04/2020 12:00:00 AM EDT eCW1 (Counts include 234 beds at the [facility]) Outpatient [address] [facility] [place] [address] 06/01/2020 12:00:00 AM EST eCW1 (Counts include 234 beds at the [facility]) Emergency Attender: RONIT SHI MDConsultant: Link Garcia MD 04/29/2020 01:35:00 AM EST - 04/29/2020 02:22:00 AM EST [facility] Patient discharged. Unknown [address] [facility] [place] [address] 04/23/2020 12:00:00 AM EST eCW1 (Counts include 234 beds at the [facility]) Outpatient [address] [facility] [place] [address] 04/20/2020 12:00:00 AM EST eCW1 (Counts include 234 beds at the [facility]) Unknown [address] [facility] [place] [address] 04/13/2020 12:00:00 AM EST eCW1 (Counts include 234 beds at the [facility]) Immunizations Vaccine Date Status Description Data Source(s) influenza, recombinant, quadrIvalent,injectable, prese rvative free 02/13/2021 10:34:00 AM EDT completed eCW1 ([facility]) influenza, recombinant, quadrIvalent,injectable, prese rvative free 02/13/2021 10:34:00 AM EDT completed eCW1 ([facility]) influenza, recombinant, quadrIvalent,injectable, prese rvative free 02/13/2021 10:34:00 AM EDT completed eCW1 ([facility]) influenza, recombinant, quadrIvalent,injectable, prese rvative free 02/13/2021 10:34:00 AM EDT completed eCW1 ([facility]) COVID-19 dose #1 given elsewhere Unspecified 08/09/2020 10:1 7:00 AM EDT completed eCW1 (Counts include 234 beds at the [facility]) COVID-19 dose #1 given elsewhere Unspecified 08/09/2020 10:1 7:00 AM EDT completed eCW1 (Counts include 234 beds at the [facility]) COVID-19 dose #1 given elsewhere Unspecified 08/09/2020 10:1 7:00 AM EDT completed eCW1 (Counts include 234 beds at the [facility]) COVID-19 dose #1 given elsewhere Unspecified 08/09/2020 10:1 7:00 AM EDT completed eCW1 (Counts include 234 beds at the [facility]) COVID-19 dose #1 given elsewhere Unspecified 08/09/2020 10:1 7:00 AM EDT completed eCW1 (Counts include 234 beds at the [facility]) COVID-19 dose #1 given elsewhere Unspecified 08/09/2020 10:1 7:00 AM EDT completed eCW1 (Counts include 234 beds at the [facility]) COVID-19 dose #1 given elsewhere Unspecified 08/09/2020 10:1 7:00 AM EDT completed eCW1 (Counts include 234 beds at the [facility]) COVID-19 dose #1 given elsewhere Unspecified 08/09/2020 10:1 7:00 AM EDT completed eCW1 (Counts include 234 beds at the [facility]) COVID-19 dose #1 given elsewhere Unspecified 08/09/2020 10:1 7:00 AM EDT completed eCW1 (Counts include 234 beds at the [facility]) COVID-19 VACCINE [place] 08/09/2020 12:00:00 AM EDT completed [facility] Vaccine Series Complete: YESThis Data wa s Submitted to [facility]. Medications Medication Brand Name Start Date Product Form Dose Route Admi nistrative Instructions Pharmacy Instructions Status Indications Reaction Description Data Source(s) [place] 5-325 MG UNK 02/13/2021 12:00:00 AM EDT 1.0 {tablet_as _needed} active [place] 5-325 MG eCW1 ([facility]) [place] 5-325 MG UNK 02/13/2021 12:00:00 AM EDT 1.0 {tablet_as _needed} active [place] 5-325 MG eCW1 ([facility]) Acetaminophen 325 MG / Hydrocodone Keshav trate 5 MG Oral Tablet HYDROcodone- Acetaminophen 5-325 MG HYDROcodone-Acetaminophen 5-325 MG 09/11/2020 12:00:00 AM EDT 1.0 {tablet_as_needed} active HYDROcodone-Acetaminophen 5-325 MG eCW1 ([facility]) Acetaminophen 325 MG / Hydrocodone Keshav trate 5 MG Oral Tablet Hydrocodone- Acetaminophen 5-325 MG Hydrocodone-Acetaminophen 5-325 MG 09/11/2020 12:00:00 AM EDT 1.0 {tablet_as_needed} active Hydrocodone-Acetaminophen 5-325 MG eCW1 ([facility]) Acetaminophen 325 MG / Hydrocodone Keshav trate 5 MG Oral Tablet HYDROcodone- Acetaminophen 5-325 MG HYDROcodone-Acetaminophen 5-325 MG 09/11/2020 12:00:00 AM EDT 1.0 {tablet_as_needed} active HYDROcodone-Acetaminophen 5-325 MG eCW1 ([facility]) Acetaminophen 325 MG / Hydrocodone Keshav trate 5 MG Oral Tablet HYDROcodone- Acetaminophen 5-325 MG HYDROcodone-Acetaminophen 5-325 MG 09/11/2020 12:00:00 AM EDT 1.0 {tablet_as_needed} active HYDROcodone-Acetaminophen 5-325 MG eCW1 ([facility]) Acetaminophen 325 MG / Hydrocodone Keshav trate 5 MG Oral Tablet HYDROcodone- Acetaminophen 5-325 MG HYDROcodone-Acetaminophen 5-325 MG 09/11/2020 12:00:00 AM EDT 1.0 {tablet_as_needed} active eCW1 ([facility]) Acetaminophen 325 MG / Hydrocodone Keshav trate 5 MG Oral Tablet Hydrocodone- Acetaminophen 5-325 MG Hydrocodone-Acetaminophen 5-325 MG 09/11/2020 12:00:00 AM EDT 1.0 {tablet_as_needed} active Hydrocodone-Acetaminophen 5-325 MG eCW1 ([facility]) Acetaminophen 325 MG / Hydrocodone Keshav trate 5 MG Oral Tablet HYDROcodone- Acetaminophen 5-325 MG HYDROcodone-Acetaminophen 5-325 MG 09/11/2020 12:00:00 AM EDT 1.0 {tablet_as_needed} active HYDROcodone-Acetaminophen 5-325 MG eCW1 ([facility]) Acetaminophen 325 MG / Hydrocodone Keshav trate 5 MG Oral Tablet HYDROcodone- Acetaminophen 5-325 MG HYDROcodone-Acetaminophen 5-325 MG 09/11/2020 12:00:00 AM EDT 1.0 {tablet_as_needed} active HYDROcodone-Acetaminophen 5-325 MG eCW1 ([facility]) [place] 5-325 MG UNK 09/04/2020 12:00:00 AM EDT 1.0 {tablet_as _needed} active [place] 5-325 MG eCW1 ([facility]) PredniSONE 5 MG (21) PredniSONE 5 MG (21) 09/04/2020 12:00:00 AM EDT active PredniSONE 5 MG (21) eCW1 ([facility]) PredniSONE 5 MG (21) PredniSONE 5 MG (21) 09/04/2020 12:00:00 AM EDT active PredniSONE 5 MG (21) eCW1 (Critical [facility] hospital) PredniSONE 5 MG (21) PredniSONE 5 MG (21) 09/04/2020 12:00:00 AM EDT active PredniSONE 5 MG (21) eCW1 ([facility] hospital) predniSONE 5 MG (21) predniSONE 5 MG (21) 09/04/2020 12:00:00 AM EDT active predniSONE 5 MG (21) eCW1 ([facility]) predniSONE 5 MG (21) predniSONE 5 MG (21) 09/04/2020 12:00:00 AM EDT active predniSONE 5 MG (21) eCW1 (Critical [facility] hospital) Sulfamethoxazole 800 MG / Trimethoprim 160 MG Oral Tab let 800-160 mg SULFAMETHOXAZOLE/TRIMETHOPRIM 04/29/2020 12:00:00 AM EST tablet 14 TAKE ONE TABLET BY MOUTH TWICE A DAY FOR 7 DAYS TAKE ONE TABLET BY MOUTH TWICE A DAY FOR 7 DAYS SOLD: 04/29/2020 [facility] 800 mg 04/29/2020 12:00:00 AM EST tablet 40 TAKE ONE TABLET BY MOUTH THREE TIMES A DAY NEEDED FOR PAIN TAKE ONE TABLET BY MOUTH THREE TIMES A D AY NEEDED FOR PAIN SOLD: 04/29/2020 [facility] 100 mg 04/24/2020 12:00:00 AM EST capsule 6 TAKE TWO CAPSULES BY MOUTH EVERY DAY AFTER A MEAL TAKE TWO CAPSULES BY MOUTH EVERY DAY AFTER A MEAL SOLD : 04/24/2020 [facility] 5 mEq (540 mg) 04/22/2020 12:00:00 AM EST tablet extended re lease 60 TAKE ONE TABLET BY MOUTH TWICE A DAY WITH MEALS TAKE ONE TABLET BY MOUTH TWICE A DAY WITH MEALS SOLD: 04/23/2020 [facility] Ketoconazole 20 MG/ML Medicated Shampoo KETOCONAZOLE 04/22/20 12:00:00 AM EST shampoo 120 USE 5ML ONCE DAILY LEAVE IN HAIR FOR 5 MINUTES USE 5ML ONCE DAILY LEAVE IN HAIR FOR 5 MINUTES SOLD: 04/23/2020 [facility] 2.5 mg 04/22/2020 12:00:00 AM EST tablet 10 TAKE ONE TABLET BY MOUTH EVERY DAY NEEDED FOR HEADACHE TAKE ONE TABLET BY MOUTH EVERY DAY NE EDED FOR HEADACHE SOLD: 04/23/2020 [facility] Hydroxychloroquine Sulfate 200 MG Oral Tablet HYDROXYCHLOROQ UINE SULFATE 04/21/2020 12:00:00 AM EST tablet 180 TAKE ONE TABLE T BY MOUTH TWICE A DAY TAKE ONE TABLET BY MOUTH TWICE A DAY SOLD: 04/23/2020 [facility] 50 mg 04/20/2020 12:00:00 AM EST tablet 30 TAKE ONE TABLET BY MOUTH EVERY MORNING TAKE ONE TABLET BY MOUTH EVERY MORNING SOLD: 04/23/2020 [facility] Ketoconazole 20 MG/ML Medicated Shampoo Ketoconazole 2 % Ket oconazole 2 % 04/20/2020 12:00:00 AM EST 5.0 {ml} active Ketoconazole 2 % eCW1 ([facility]) 50 mg 04/20/2020 12:00:00 AM EST tablet 60 TAKE ONE TABLET BY MOUTH TWICE A DAY TAKE ONE TABLET BY MOUTH TWICE A DAY SOLD: 04/23/2020 [facility] Omeprazole 40 MG Delayed Release Oral Capsule Omeprazole 40 MG 04/20/2020 12:00:00 AM EST active Omeprazo le 40 MG eCW1 ([facility]) Itraconazole 100 MG Oral Capsule Itraconazole 100 MG 04/20/2020 12:00:00 AM EST 2.0 {capsules_after_a_meal} active Itraconazole 100 MG eCW1 ([facility]) 2 mg 04/20/2020 12:00:00 AM EST tablet 60 TAKE ONE TABLET BY MOUTH THREE TIMES A DAY NEEDED FOR FLARES TAKE ONE TABLET BY MOUTH THREE TIMES A D AY NEEDED FOR FLARES SOLD: 04/23/2020 [facility] 40 mg 04/20/2020 12:00:00 AM EST capsule,delayed release (DR/EC) 60 TAKE ONE CAPSULE BY MOUTH TWICE A DAY TAKE ONE CAPSULE BY MOUTH TWICE A DAY SOLD: 08/13/2020 [facility] 40 mg 04/20/2020 12:00:00 AM EST capsule,delayed release (DR/EC) 60 TAKE ONE CAPSULE BY MOUTH TWICE A DAY TAKE ONE CAPSULE BY MOUTH TWICE A DAY SOLD: 04/23/2020 [facility] Omeprazole 40 MG Delayed Release Oral Capsule Omeprazole 40 MG 04/20/2020 12:00:00 AM EST active Omeprazo le 40 MG eCW1 ([facility]) Ketoconazole 20 MG/ML Medicated Shampoo Ketoconazole 2 % Ket oconazole 2 % 04/20/2020 12:00:00 AM EST 5.0 {ml} active Ketoconazole 2 % eCW1 ([facility]) Itraconazole 100 MG Oral Capsule Itraconazole 100 MG 04/20/2020 12:00:00 AM EST 2.0 {capsules_after_a_meal} active Itraconazole 100 MG eCW1 ([facility]) 2 mg 04/11/2019 12:00:00 AM EST tablet 60 TAKE ONE TABLET BY MOUTH THREE TIMES A DAY NEEDED FOR FLARES TAKE ONE TABLET BY MOUTH THREE TIMES A D AY NEEDED FOR FLARES SOLD: 02/16/2020 [facility] Hydroxychloroquine Sulfate 200 MG Oral Tablet HYDROXYCHLOROQ UINE SULFATE 04/11/2019 12:00:00 AM EST tablet 90 TAKE ONE TABLE T BY MOUTH EVERY DAY TAKE ONE TABLET BY MOUTH EVERY DAY SOLD: 02/16/2020 [facility] 50 mg 04/11/2019 12:00:00 AM EST tablet 60 TAKE ONE TABLET BY MOUTH TWICE A DAY TAKE ONE TABLET BY MOUTH TWICE A DAY SOLD: 02/16/2020 [facility] Insurance Providers Payer name Policy type / Coverage type Policy ID Covered green party ID Covered green party's relationship to bedolla Policy [place] Plan Information [employer] Workers Compensation [id number] Self [id number] MEDICARE A [id number] Self [id number] A MEDICARE [id number] SP [id number] A [id number] A MEDICAID M [id number] Self [id number] [facility] MEDICARE DUAL G [id number] Self [id number] [facility] [id number] SP [id number] MEDICAID [id number] SP [id number] [facility] [id number] SP [id number] [facility] Medicare Advantage Commercial [id number] Self [id number] [facility] MEDICARE DUAL G [id number] [facility] [id number] [facility] [id number] SP [id number] Medicaid [place] Medigap Part B [id number] Self [id number] ANSI-Medicaid [id number] ANSI-Not a Secondary Insurance [id number] ANSI-Medicare Part B [id number] ANSI-Not a Secondary Insurance [id number] ANSI-Medicare Part B [id number] ANSI-Medicaid [id number] ANSI-Not a Secondary Insurance [id number] ANSI-Medicare Part B [id number] ANSI-Medicaid [id number] ANSI-Not a Secondary Insurance [id number] ANSI-Medicaid [id number] ANSI-Medicare Part B [id number] MEDICARE COMPLETE-[facility] O [id number] S [id number] ANSI-Not a Secondary Insurance [id number] ANSI-Medicare Part B [id number] ANSI-Medicaid [id number] ANSI-Medicare Part B [id number] ANSI-Medicaid [id number] ANSI-Not a Secondary Insurance [id number] ANSI-Medicaid [id number] ANSI-Not a Secondary Insurance [id number] ANSI-Medicare Part B [id number] ANSI-Medicare Part B [id number] ANSI-Medicaid [id number] ANSI-Not a Secondary Insurance [id number] ANSI-Medicaid [id number] ANSI-Not a Secondary Insurance [id number] ANSI-Medicare Part B [id number] [facility] [id number] SP [id number] ANSI-Medicaid [id number] ANSI-Not a Secondary Insurance [id number] ANSI-Medicare Part B [id number] MEDICAID [id number] SP [id number] [facility] Health Maintenance Organization (HMO) [id number] Self [facility] Medicare Dual Complete Commercial [id number] Self [place] Medigap Part B [id number] Self [facility] Community Plan Medicare Medigap Part B [id number] Self [place] Community Plan Commercial [id number] Self [facility] [id number] SP [id number] [facility] COMMUNITY PLAN [place] [id number] SP [id number] MEDICARE [id number] SP [id number] A MEDICARE P [id number] S [id number] A [facility] NOTFORTODAYSVISIT SP [place]IT [place] [id number] SP [id number] T [id number] [facility] [id number] SP [id number] [facility] [id number] SP [id number] [place] [id number] SP [id number] [facility](MCAID) O [id number] S [id number] MEDICAID M [id number] S [id number] [facility] COMMUNITY PLAN XIX [id number] 18 [id number] MEDICARE COMPLETE [id number] SP [id number] MEDICAID [id number] SP [id number] ANSI-Medicaid [id number] ANSI-Medicare Part B [id number] ANSI-Not a Secondary Insurance [id number] MEDICARE COMPLETE [id number] SP [id number] Problems, Conditions, and Diagnoses Code Display Name Description Problem Type Effective Dates Data Source(s) C26011 Nicotine dependence, unspecified, uncomp licated Nicotine dependence, unspecified, uncomplicated Diagnosis 04/29/2020 01:35:00 AM EST [facility] L0501 Pilonidal cyst with abscess Pilonidal cyst with absces s Diagnosis 04/29/2020 01:35:00 AM EST [facility] Q18.1 [id number] Cyst on ear Problem 03/13/2021 12:00:00 AM EST eCW1 ([facility]) H52.02 [id number] Hypermetropia of left eye Problem 02/13/2021 12:00:00 AM EDT eCW1 ([facility]) Z12.39 Breast cancer screening Breast cancer screening [facility] 04/20/2020 12:00:00 AM EST eCW1 ([facility]) Surgeries/Procedures Procedure Description Date Indications Data Source(s) 03/19/2021 12:00:00 AM EST e CW1 ([facility]) Results ID Date Data Source [id number] 04/01/2021 10:20:00 AM EST [facility] Name Value Range Interpretation Code Description Data Bessie rce(s) Supporting Document(s) SARS-CoV-2 (COVID-19) RNA [Presence] in Respiratory specimen by JOSE with probe detection Not Detected [facility] This lab was ordered by [facility] and reported by [employer]. ID Date Data Source [id number] 04/29/2020 01:35:00 AM EST [facility] 1 OrderSheet [facility] [address] [place] [address] Phone #: [phone] 04/29/2020 01:32 Patient: TOMY TOLEDO Sex: F : 1980 Age: 39yWEIGHT:63.5 kg (S)ALLERGIES: Morphine causes GI symptomsCHIEF COMPLAINT: tender areaDIAGNOSIS: AbscessLAB ORDERSOrder Description Priority Entered Acknowledged InitialedDIAGNOSTIC STUDY ORDERSOrder Description Priority Entered Acknowledged InitialedMEDICATION/IV/DRIP/FLUID ORDERSOrder Description Priority Entered Acknowledged InitialedToradol IM 60 mg 01:50 04/29/2020 01:56 Ashtyn Jackson(NOW) Ronit Shi R.N. ;Bactrim DS PO 1 01:50 04/29/2020 01:56 Ronit Tavares R.N. ;GENERAL ORDERSOrder Description Priority Entered Acknowledged Initialed[Electronically signed by Ashtyn Waldrop R.N. (06:23 04/29/2020)][Electronically signed by Ronit Shi (06:38 04/29/2020)][Electronically locked by Ashtyn Waldrop R.N. (06:23 04/29/2020)] Name Value Range Interpretation Code Description Data [facility] rce(s) Supporting Document(s) ID Date Data Source [id number] 04/29/2020 01:35:00 AM EST [facility] 1 Medication Reconciliation Report [facility] Emergency Department [address] [place] [address] Phone #: ext- [phone] 04/29/2020 01:32 Patient: TOMY TOLEDO Sex: F : 1980 Age: 39yWeight: 63.5 kgHeight/Length: 63 in.BMI: 24.8ALLERGIES: Morphine causes GI symptomsThe patient's Home Medications are listed below:CONTINUE TAKING THE FOLLOWING MEDICATIONS: Hydroxychloroquine Sulfate Oral Plaquenil Oral tiZANidine HCl Oral Vitamin D OralThe source(s) of the original Home Medication information:Not obtained.The following Medications were given to the patient in the Emergency Department:Bactrim DS [PO] PO 1 tab, administered: 01:56 04/29/2020Toradol [IM] IM 60 mg, administered: 01:56 04/29/2020The following Medications were prescribed to the patient:Bactrim DS 800 mg-160 mg tablet Take 1 tablet twice a day for 7 days -- Dispense 14 tablet. Refills: 0.Substitution permitted.[facility] [address] [place] [phone]. FaxNumber: .ibuprofen 600 mg tablet Take 1 tablet four times a day as needed for pain for 10 days -- Dispense 40tablet. Refills: 0. Substitution permitted.[facility] [address] [phone]. . -- Ronit Shi Name Value Range Interpretation Code Description Data Bessie rce(s) Supporting Document(s) ID Date Data Source [id number] 04/29/2020 01:35:00 AM [facility] 1 Medication Administration Record [facility] [address] [place] [address] Phone #: ext- [phone] 04/29/2020 01:32 Patient: TOMY TOLEDO Sex: F : 1980 Age: 39yWeight: 63.5 kgHeight/Length: 63 inBMI: 24.8ALLERGIES: Morphine causes GI symptoms Date/Time Medication Administered Medication OrderedGiven TORADOL [IM] (KETOROLAC Toradol IM 60 mg (NOW)01:56 04/29/2020 TROMETHAMINE)Ashtyn Ayers RYaniqueNYanique Dose: 60 mg IMGiven BACTRIM DS [PO] Bactrim DS PO 1 tab01:56 04/29/2020 (SULFAMETHOXAZOLE-TMP DS)Ashtyn Ayers RYaniqueNYanique Dose: 1 tab Tablets PO Name Value Range Interpretation Code Description Data Bessie rce(s) Supporting Document(s) ID Date Data Source [id number] 04/29/2020 01:35:00 AM [facility] 1 General Instructions [facility] [address] [place] [address] Phone #: ext- [phone] 04/29/2020 01:32 Patient: TOMY TOLEDO Sex: F : 1980 Age: 39ySingle abscess to the pilonidal region.INSTRUCTIONS(do not apply powder on your buttock area. warm compresses on the buttocks. take the bactrim ds asprescribed and take motrin for pain. return to the ER if redness increased and not better with antibiotics).Your Current Medications: Your current home medications have been reviewed.CONTINUE TAKING THE FOLLOWING MEDICATIONS:Hydroxychloroquine Sulfate Oral.Plaquenil Oral.tiZANidine HCl Oral.Vitamin D Oral.Prescription Medications:Bactrim DS 800 mg-160 mg tablet Take 1 tablet twice a day for 7 days -- Dispense 14 tablet. Refills: 0.Substitution permitted.[facility] [address] [place] [phone]. FaxNumber: [phone].ibuprofen 600 mg tablet Take 1 tablet four times a day as needed for pain for 10 days -- Dispense 40tablet. Refills: 0. Substitution permitted.[facility] [address] [place] [address] ; [place], [place] [phone]. .Follow-up:Return to the emergency department in five days if not better. Follow up with your healthcare provider infour days if not better. Reason for referral: evaluation and treatment. Summary of care provided to purnimavikirsten paper. ADDITIONAL INFORMATIONAbscess (Antibiotic Treatment Only)An abscess happens when bacteria get trapped under the skin and start to grow. Pus forms insidethe abscess as the body responds to the bacteria. An abscess can happen with an insect bite,ingrown hair, blocked oil gland, pimple, cyst, or puncture wound. It is sometimes call a boil. 2 General Instructions [facility] [address] [place] [address] Phone #: ext- [phone] 04/29/2020 01:32 Patient: TOMY TOLEDO Sex: F : 1980 Age: 39yIn the early stages, your wound may be red and tender. For this stage, you may get antibiotics. If theabscess does not get better with antibiotics, it will need to be drained with a small cut.Home careThese tips will help you care for your abscess at home: Soak the wound in hot water or apply hot packs (small towel soaked in hot water) to the area for 20 minutes at a time. Do this 3 to 4 times a day, or as instructed. Use a new towel each time. Wash the towels afterward because they may be contaminated with bacteria after use. Don't cut, squeeze, or pop the boil yourself. Put antibiotic cream or ointment on the skin 3 to 4 times a day, unless something else was prescribed. Some ointments include an antibiotic plus a pain reliever. If your healthcare provider prescribed antibiotics, don't stop taking them until you have finished the medicine or you are told to stop. You may use an qrbj-hnx-ukirvxt pain medicine to control pain, unless another pain medicine was prescribed. Talk with your provider before taking these medicines if you have chronic liver or kidney disease or ever had a stomach ulcer or digestive bleeding.Follow-up careFollow up with your healthcare provider, or as advised. Check your wound each day for the signs thatthe infection may be getting worse (see below).When to seek medical adviceGet prompt medical attention if any of these occur: An increase in redness or swelling Red streaks in the skin leading away from the abscess An increase in local pain or swelling Fever of 100.4F (38C) or higher, or as directed by your healthcare provider Pus or fluid coming from the abscess Boil returns after getting better [id number] [employer]. [address] [place] [address]. All rights reserved. T his information is not intended as asubstitute for professional medical care. Always follow your healthcare professional's instructions. 3 General Instructions [facility] [address] [place] [address] Phone #: ext- [phone] 04/29/2020 01:32 Patient: TOMY TOLEDO Sex: F : 1980 Age: 39yYou have been given the following additional information:Abscess, Antibiotic Treatment Only(Electronically signed by Ronit Shi 04/29/2020 06:38) Name Value Range Interpretation Code Description Data Bessie rce(s) Supporting Document(s) ID Date Data Source [id number] 04/29/2020 01:35:00 AM EST [facility] 1 Clinical Report - Nurses [facility] [address] [place] [address] Phone #: ext- [phone] 04/29/2020 01:32 Patient: TOMY TOLEDO Sex: F : 1980 Age: 39yTRIAGEArrived by private vehicle. Historian: patient.Triage time: :04/29/2020.Chief Complaint: BOIL.Reported as (gluteal crease). This started yesterday. It is described as painful. ( Reports that she hashad this before. Tried using a warm pack and powder at home, but it is getting increasingly painful andhard to sit down). No fever. --01:34 04/29/20 Ashtyn Ayers R.N.Acuity: LEVEL 4.SEPSIS SCREEN: SEPSIS SCREEN NEGATIVE. No suspected or confirmed signs of infection present.--01:48 04/29/20 Ashtyn Ayers R.N.01:40 04/29/20. HR: 65. RR: 16. O2 saturation: 100%. Temp: 98 F. Pain level now: 10. --01: Ashtyn Ayers R.N.01:54 04/29/20. BP: 110/60 taken on the right arm, manually, while sitting. MAP: 76. --01:54 04/29/20Ashtyn Ayers R.N.Weight: 63.5 kg stated. Height/Length: 63 inches Per Patient. BMI: 24.8. --01:37 04/29/20 Ashtyn Bailey R.N.MedicationsHydroxychloroquine Sulfate Oral. Plaquenil Oral. tiZANidine HCl Oral. Vitamin D Oral. --01:35 04/29/20 Ashtyn Ayers R.N.AllergiesMorphine causes GI symptoms. --01:35 04/29/20 Ashtyn Ayers R.N.PROBLEMS:DDD.Migraine Headache.Lupus. 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 2 Clinical Report - Nurses [facility] [address] [place] [address] Phone #: ext- [phone] 04/29/2020 01:32 Patient: TOMY TOLEDO Sex: F : 1980 Age: 39y Brain tumor removal. Breast reduciton. Cholecystectomy. --01:37 04/29/20 Ashtyn Ayers R.N. History PAST MEDICAL HX: Immunizations: status is unknown. Last normal menstrual period- Apr 09. 0. Sexual history - sexually active. No contraception. SOCIAL HX: Light tobacco smoker- less than 1/2 a pack per day (quit information declined). Alcohol use. (seldom). Drug use: marijuana. ("once in a while" smoked earlier in the day). She was offered HIV testing but declined and hepatitis C testing but declined. She has not traveled outside the [place] Infectious disease exposure: No infectious disease exposure. The patient was not exposed to C-diff, MRSA, VRE or CRE. SELF HARM ASSESSMENT: Self harm assessment was performed. The patient answered "no" to the question(s) "Do you have thoughts of harming or killing yourself?" and "Do you have a plan for harming or killing yourself?". ABUSE ASSESSMENT: No report of abuse. FALL RISK ASSESSMENT: Fall risk assessment completed. Risk factors identified include severe pain. Fall interventions initiated. Bed in low position. Brakes on. Call light in reach of patient. --01:40 04/29/20 Ashtyn Ayers R.N.PHYSICAL ASSESSMENTAmbulatory to room.GENERAL / NEURO / PSYCH: Alert. Oriented X 4.HEENT: Mucous membranes are pink.RESPIRATORY: Respirations not labored.CVS: Capillary refill less than 2 seconds.GI / : ( denies any GI/ symptoms).SKIN: Skin is warm and dry. Single small superficial wound with erythema- less than 1 cm, midline uppergluteal crease. --01:55 04/29/20 Ashtyn Ayers R.N.NURSING PROGRESS NOTES01:41 04/29/20. Patient gowned. Call light placed in reach. Bed pl aced in lowest position. Brakes ofbed on. --01:56 04/29/20 Ashtyn Ayers R.N. 01:56 04/29/2020 Bactrim DS (Sulfamethoxazole-TMP DS) PO Tablets 1 tab given. Allergies verified and confirmed 5 rights. Information reviewed with patient including reason for taking this medication. Verbalizes understanding. --01:56 04/29/20 Ashtyn Ayers R.N. 01:56 04/29/2020 Toradol (Ketorolac Tromethamine) IM 60 mg given. Allergies verified and confirmed 5 rights. Information reviewed with patient including reason for taking this medication, signs of allergic reaction and precautions. Verbalizes understanding. --01:56 04/29/20 Ashtyn Ayers R.N. 3 Clinical Report - Nurses [facility] [address] [place] [address] Phone #: ext- [phone] 04/29/2020 01:32 Patient: TOMY TOLEDO Sex: F : 1980 Age: 39yDISPOSITION / DISCHARGE Departure time: 02:22 04/29/2020. Condition at departure: stable. No learning barriers present. Reviewed medication(s). Prescription(s) sent electronically to pharmacy. Patient verbalized understanding. Written instructions provided. The patient was discharged by the physician. She was discharged home. She left ambulatory and via private vehicle. Spouse driving. --02:22 04/29/20 Ashtyn Ayers R.N. 02:22 04/29/20. BP: deferred. HR: deferred. RR: deferred. O2 saturation: deferred. Temp: deferred. --02:22 04/29/20 Ashtyn Ayers R.N. 02:23 04/29/20. Pain level now: 510. --02:04/29/20 Ashtyn Ayers R.N.Locked/Released at 04/29/2020 06:23 by Ashtyn Ayers R.N. Name Value Range Interpretation Code Description Data Bessie rce(s) Supporting Document(s) ID Date Data Source [id number] 04/29/2020 01:35:00 AM [facility] 1 Clinical Report - Physicians/Mid Levels [facility] [address] [place] [address] Phone #: ext- [phone] 04/29/2020 01:32 Patient: TOMY TOLEDO Sex: F : 1980 Age: 39y Time Seen: 01:46 04/29/2020; initial patient contact, initial documentation. Arrived- By private vehicle. Historian- patient. Disposition decision: 01:59 04/29/2020.HISTORY OF PRESENT ILLNESS Chief Complaint: TENDER AREA and (buttock). This started yesterday and is still present. Not itchy or burning. It is described as painful. It has been located in the pilonidal (coccyx) area. No recent medication, insect bite or food exposure. Was not recently exposed to poison jorge or poison oak. (patient has a history of pilonidal abscess that was drained last year. today she started having pain near her buttock. it was tender to touch but not hard or fluctuant. denies any fevers or chills). Similar symptoms previously. Seen in the ED. Evaluation/treatment: incision and drainage performed. Diagnosis: abscess.REVIEW OF SYSTEMSLast normal menstrual period- de c 2019. No fever, chills, sore throat, cough or difficulty breathing. Nohoarseness, lump in throat, enlarged lymph nodes, headache or eye irritation. No chest pain, abdominalpain, nausea, diarrhea or difficulty with urination. No vomiting. All other systems reviewed and arenegative.PAST HISTORYSee nurses notes. Problems: DDD. Migraine Headache. Lupus. 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 Brain tumor removal. Breast reduciton. Cholecystectomy. Medications: Hydroxychloroquine Sulfate Oral. Plaquenil Oral. tiZANidine HCl Oral. Vitamin D Oral. Allergies: Morphine causes GI symptoms. 2 Clinical Report - Physicians/Mid Levels [facility] [address] [place] [address] Phone #: ext- [phone] 04/29/2020 01:32 Patient: TOMY TOLEDO Sex: F : 1980 Age: 39ySOCIAL HISTORYNever smoker. No alcohol use or drug use.ADDITIONAL NOTESThe nursing notes have been reviewed.PHYSICAL EXAMVital Signs: 04/29/2020 01:54 BP: sitting 110/60. MAP: 76.04/29/2020 01:40 HR: 65. RR: 16. O2 saturation: 100%. Temp: 98 F. Pain level now: 7/10. Oxygensaturation normal.Appearance: Alert. Oriented X3. Patient in mild distress.Eyes: Pupils equal, round and reactive to light. Conjunctivae and eyelids normal.CVS: Normal heart rate and rhythm. Heart sounds normal.Respiratory: No respiratory distress. Breath sounds normal. Chest nontender.Abdomen: Nontender. No organomegaly.Rectal: Rectal exam nontender. No abscess or perianal cellulitis.Skin: Skin warm and dry. Normal skin color. Small area of erythema with tenderness to the pilonidalarea (there is a 1 cm area of erythema and tenderness on the sacral area, no fluctuance, noinduration). No warmth, swelling or lymphangitis. No induration, weeping, rough texture like scarlatina,thickening or inflammation. No crusting. There is tenderness and swelling.Extremities: Normal external inspection. Extremities nontender.PROGRESS AND PROCEDURESCourse of Care: 01:52 04/29/20. patient given toradol for pain and bactrim ds. the tender area is verysmall and no induration or fluctuance. this maybe a very early abscess that is too early to drain.explained to the patient that it is small and we will treat it with antibiotics and advised to return to the ER ifthe swelling gets worse despite antibiotics. then we can maryellen it then. Patient counseled in person regarding the patient's stable condition and need for follow-up. Patient agrees with plan of care. 01:59. Dis position: Condition: good and stable. Discharge decision based on the following: patient's condition is stable; patient is ambulatory; patient's exam is stable.CLINICAL IMPRESSION Single abscess to the pilonidal region.INSTRUCTIONS 3 Clinical Report - Physicians/Mid Levels [facility] [address] [place] [address] Phone #: ext- [phone] 04/29/2020 01:32 Patient: TOMY TOLEDO Sex: F : 1980 Age: 39y (do not apply powder on your buttock area. warm compresses on the buttocks. take the bactrim ds as prescribed and take motrin for pain. return to the ER if redness increased and not better with antibiotics). Your Current Medications: Your current home medications have been reviewed. CONTINUE TAKING THE FOLLOWING MEDICATIONS: Hydroxychloroquine Sulfate Oral. Plaquenil Oral. tiZANidine HCl Oral. Vitamin D Oral. Prescription Medications: Bactrim DS 800 mg-160 mg tablet Take 1 tablet twice a day for 7 days -- Dispense 14 tablet. Refills: 0. Substitution permitted. [facility] [address] [place] [address] ; [place], [place] [phone]. . ibuprofen 600 mg tablet Take 1 tablet four times a day as needed for pain for 10 days -- Dispense 40 tablet. Refills: 0. Substitution permitted. [facility] [address] - [address] [place] [address] ; [place], [place] [phone]. . Follow-up: Return to the emergency department in five days if not better. Follow up with your healthcare provider in four days if not better. Reason for referral: evaluation and treatment. Summary of care provided to patient via paper.(Electronically signed by Ronit Shi 04/29/2020 06:38) Name Value Range Interpretation Code Description Data Bessie rce(s) Supporting Document(s) Procedure Social History Code Duration Value Status Description Data Source(s ) Smoking 03/12/2021 12:00:00 AM EST Current Smoker completed Curre nt Smoker eCW1 ([facility]) Smoking 03/12/2021 12:00:00 AM EST Current Smoker completed Curre nt Smoker eCW1 ([facility]) Smoking 02/13/2021 12:00:00 AM EDT Current Smoker completed Curre nt Smoker eCW1 ([facility]) Smoking 02/13/2021 12:00:00 AM EDT Current Smoker completed Curre nt Smoker eCW1 ([facility]) Smoking 09/04/2020 12:00:00 AM EDT Current Smoker completed Curre nt Smoker eCW1 ([facility]) Smoking 09/04/2020 12:00:00 AM EDT Current Smoker completed Curre nt Smoker eCW1 ([facility]) Smoking 09/04/2020 12:00:00 AM EDT Current Smoker completed Curre nt Smoker eCW1 ([facility]) Smoking 09/04/2020 12:00:00 AM EDT Current Smoker completed Curre nt Smoker eCW1 ([facility]) Smoking 09/04/2020 12:00:00 AM EDT Current Smoker completed Curre nt Smoker eCW1 ([facility]) Smoking 06/01/2020 12:00:00 AM EST Current Smoker completed Curre nt Smoker eCW1 ([facility]) Smoking 04/20/2020 12:00:00 AM EST Current Smoker completed Curre nt Smoker eCW1 ([facility]) Smoking 04/20/2020 12:00:00 AM EST Current Smoker completed Curre nt Smoker eCW1 ([facility]) Vital Signs ID Date Data Source UNK Name Value Range Interpretation Code Description Data Source(s) Body weight 65.68 kg 65.68 kg [facility] Body height 63 [in_i] 63 [in_i] eCW1 ([facility]) Body mass index (BMI) [Ratio] 25.65 kg/m2 25.65 kg/m2 W1 ([facility]) Body weight 144.8 [lb_av] 144.8 [lb_av] eCW1 ([facility]) Heart rate 89 /min 89 /min eCW1 ([facility]) Respiratory rate 18 /min 18 /min eCW1 ([facility]) Body temperature 98.1 [degF] 98.1 [degF] eCW1 ( [facility]) Systolic blood pressure 110 mm[Hg] 110 mm[Hg] e CW1 ([facility]) Diastolic blood pressure 78 mm[Hg] 78 mm[Hg] eCW1 ([facility]) Body mass index (BMI) [Ratio] 25.0 kg/m2 25.0 k g/m2 MEDENT ([facility]) Diastolic blood pressure 58 mm[Hg] 58 mm[Hg] MEDENT ([facility]) Body temperature 98.6 [degF] 98.6 [degF] MEDENT ([facility]) Body height 63 [in_i] 63 [in_i] MEDENT ([facility]) 5'3" Body weight 141.25 [lb_av] 141.25 [lb_av] MEDEN T ([facility]) Body weight 64.071 kg 64.071 [facility] Body surface area Derived from formula 1.67 m2 1.67 m2 [facility] ([facility]) Systolic blood pressure 112 mm[Hg] 112 mm[Hg] M EDENT ([facility]) [place] body weight 115 [lb_av] 115 [lb_av] MEDEN T ([facility]) Body weight 148.2 [lb_av] 148.2 [lb_av] eCW1 ([facility]) Body height 63 [in_i] 63 [in_i] eCW1 ([facility]) Body mass index (BMI) [Ratio] 26.25 kg/m2 26.25 kg/m2 W1 ([facility]) Heart rate 82 /min 82 /min eCW1 ([facility]) Respiratory rate 20 /min 20 /min eCW1 ([facility]) Body temperature 98.4 [degF] 98.4 [degF] eCW1 ( [facility]) Systolic blood pressure 112 mm[Hg] 112 mm[Hg] e CW1 ([facility]) Diastolic blood pressure 68 mm[Hg] 68 mm[Hg] eCW1 ([facility]) Body weight 147.0 [lb_av] 147.0 [lb_av] eCW1 ([facility]) Body mass index (BMI) [Ratio] 26.04 kg/m2 26.04 kg/m2 eCW1 ([facility]) Systolic blood pressure 122 mm[Hg] 122 mm[Hg] e CW1 ([facility]) Body height 63 [in_i] 63 [in_i] eCW1 ([facility]) Diastolic blood pressure 78 mm[Hg] 78 mm[Hg] eCW1 ([facility]) Heart rate 97 /min 97 /min eCW1 ([facility]) Respiratory rate 20 /min 20 /min eCW1 ([facility]) Body temperature 97.7 [degF] 97.7 [degF] eCW1 ( [facility]) Body weight 143.6 [lb_av] 143.6 [lb_av] eCW1 ([facility]) Body height 63 [in_i] 63 [in_i] eCW1 ([facility]) Body mass index (BMI) [Ratio] 25.43 kg/m2 25.43 kg/m2 eCW1 ([facility]) Heart rate 108 /min 108 /min eCW1 ([facility]) Respiratory rate 18 /min 18 /min eCW1 ([facility]) Body temperature 99.2 [degF] 99.2 [degF] eCW1 ( [facility]) Systolic blood pressure 120 mm[Hg] 120 mm[Hg] e CW1 ([facility]) Diastolic blood pressure 70 mm[Hg] 70 mm[Hg] eCW1 ([facility]) Patient Treatment Plan of Care Planned Activity Planned Date Details Description Data Source (s) [place] 5-325 MG 02/13/2021 12:00:00 AM EDT eCW1 ([facility]) [place] 5-325 MG 02/13/2021 12:00:00 AM EDT eCW1 ([facility]) Acetaminophen 325 MG / Hydrocodone Bitartrate 5 MG Ora l Tablet 09/11/2020 12:00:00 AM EDT eCW1 ([facility]) Acetaminophen 325 MG / Hydrocodone Bitartrate 5 MG Ora l Tablet 09/11/2020 12:00:00 AM EDT eCW1 ([facility]) Acetaminophen 325 MG / Hydrocodone Bitartrate 5 MG Ora l Tablet 09/11/2020 12:00:00 AM EDT eCW1 ([facility]) Acetaminophen 325 MG / Hydrocodone Bitartrate 5 MG Ora l Tablet 09/11/2020 12:00:00 AM EDT eCW1 ([facility]) predniSONE 5 MG (21) 09/04/2020 12:00:00 AM EDT eCW1 ([facility]) predniSONE 5 MG (21) 09/04/2020 12:00:00 AM EDT eCW1 ([facility]) PredniSONE 5 MG (21) 09/04/2020 12:00:00 AM EDT eCW1 ([facility]) PredniSONE 5 MG (21) 09/04/2020 12:00:00 AM EDT eCW1 ([facility]) [place] 5-325 MG 09/04/2020 12:00:00 AM EDT eCW1 ([facility]) PredniSONE 5 MG (21) 09/04/2020 12:00:00 AM EDT eCW1 ([facility]) Omeprazole 40 MG Delayed Release Oral Capsule 04/20/2020 12:00:00 A M EST eCW1 ([facility]) Itraconazole 100 MG Oral Capsule 04/20/2020 12:00:00 AM EST eCW1 ([facility]) Ketoconazole 20 MG/ML Medicated Shampoo 04/20/2020 12:00:00 AM EST eCW1 ([facility]) Omeprazole 40 MG Delayed Release Oral Capsule 04/20/2020 12:00:00 A M EST eCW1 ([facility]) Itraconazole 100 MG Oral Capsule 04/20/2020 12:00:00 AM EST eCW1 ([facility]) Ketoconazole 20 MG/ML Medicated Shampoo 04/20/2020 12:00:00 AM EST eCW1 ([facility])
[2021-04-05] MEDS ORDERED: propofoL 200 MG/20 ML VIAL As Ordered ONE ×2 (08:10→08:26)
[2021-04-05] MEDS ORDERED: LIDOCAINE 2% 100MG/5ML SDV (FOR ANES.) As Ordered ONE (08:10)
[2021-04-05] MEDS ORDERED: dexameTHASONE 4 MG/ML 1ML VIAL (J1100 PER 1MG) As Ordered ONE (08:10)
[2021-04-05] MEDS ORDERED: MIDAZOLAM INJ 2MG/2ML VIAL (J2250 PER 1MG) As Ordered ONE (08:10)
[2021-04-05] MEDS ORDERED: ONDANSETRON 4MG/2ML VIAL As Ordered ONE ×2 (08:10→08:19)
[2021-04-05] MEDS ORDERED: fentaNYL 100 MCG/2 ML INJECTION (J3010) As Ordered ONE (08:11)
[2021-04-05] MEDS ORDERED: ONDANSETRON 4MG/2ML VIAL IV ONE (08:25)
[2021-04-05] MEDS ORDERED: METOCLOPRAMIDE INJ 10MG/2ML VIAL (J2765 PER 1) IV PRN (09:50)
[2021-04-05] MEDS ORDERED: LR 1,000 ML IV SCH (09:50)
[2021-04-05] MEDS ORDERED: fentaNYL 100 MCG/2 ML INJECTION (J3010) IV PRN (09:50)
[2021-04-05] MEDS ORDERED: oxyCODONE 5MG TAB PO PRN (09:50)
[2021-04-05] MEDS ORDERED: NORCO, ANEXSIA 5/325MG TABLET (HYDROcodone/ACETAMINOPHEN) PO PRN (09:50)
[2021-04-05] MEDS ORDERED: ONDANSETRON 4MG/2ML VIAL IV PRN (09:50)
[2021-04-05 11:14] VITALS: BP 128/83
--- NOTE | 2021-04-08 15:23 | RO ---
OPERATIVE NOTE DATE OF OPERATION: 04/05/2021 PREOPERATIVE DIAGNOSIS: Pilonidal cyst. POSTOPERATIVE DIAGNOSIS: Sebaceous cyst. PROCEDURE: Excision of presacral sebaceous cyst. SURGEON: Yfn Cooper DO MEDICAL LIAISON: None. ANESTHESIA: Spinal with sedation. EBL: 2. COMPLICATIONS: None. INDICATIONS FOR PROCEDURE: The patient is a 40-year-old female with presacral cyst with concern for possible pilonidal cyst. Recommendation was to take her to the operating room for cystectomy. Risks and benefits of the procedure not limited to but including bleeding, infection, damage to surrounding structures and need for further surgery were discussed in detail with the patient and informed consent was obtained, procedure was planned. DESCRIPTION OF PROCEDURE: The patient was placed in the prone position. The presacral area was sterilely prepped and draped with Betadine. After time out was done confirming proper patient and proper procedure, thorough exam was done and did not show any signs of any sinus tracts. Elliptical incision was then made around the cyst, did not appear to have any sinus tracts draining from it. I cut down the center of the cyst as well, did not see any [place] of hair or any sinus tracts again. Therefore, concluding that this was most likely just a sebaceous cyst. The cyst was then fully removed intact. The wound bed was then closed with layered closure. Deep layer was completed with 3-0 Vicryl interrupted subcutaneous sutures followed by layer of 2-0 nylon stitches to close the skin. Once that was completed the area was cleaned and dried. 4 x 4 and tape were applied. This ended the procedure.
== END 2021-04-05 11:14 | disposition home or self-care (01) ==
LOC: M SDC 07:02
PROVIDERS: ATTEND Surgery
DX: L05.91 Pilonidal cyst without abscess (principal); F12.10 Cannabis abuse, uncomplicated; F17.218 Nicotine dependence, cigarettes, with other nicotine-induced disorders; K21.9 Gastro-esophageal reflux disease without esophagitis; M32.9 Systemic lupus erythematosus, unspecified; Z79.899 Other long term (current) drug therapy; Z88.8 Allergy status to other drugs, medicaments and biological substances; Z88.5 Allergy status to narcotic agent
CPT/HCPCS: 11770; 81025; 88304; J1100; J2250; J2405; J3010

== ENCOUNTER → 2022-01-28 | Outpatient (CLI) | payer MEDICARE, MEDICAID ==
[~2022-01-28] MED LIST changes: -CITA10TA5; +CITA10TA7; -LR 1,000 ML IV ONE; -OMEP-221 PO; +OMEP40CA5 PO
== END ==
LOC: M WHC 08:07
PROVIDERS: ATTEND Family Medicine
DX: K76.89 Other specified diseases of liver (principal)

== ENCOUNTER → 2022-08-22 | Outpatient (CLI) | payer MEDICARE, MEDICAID ==
[2022-08-22 11:47] LABS: TOTAL PROTEIN,RANDOM URINE 32.6 MG/DL (0.0-14.0)
[2022-08-22 11:52] LABS: C REACTIVE PROTEIN QUANTITATIV < 0.40 MG/DL (<1.0); CREATININE,RANDOM URINE 165.8 MG/DL
[2022-08-22 11:53] LABS: COMPLEMENT C3 112.8 MG/DL (90.0-170.0)
[2022-08-22 11:54] LABS: FOLLICLE STIMULATING HORMONE 17.2 mIU/ML; LUTEINIZING HORMONE 29.1 mIU/ML
[2022-08-25 16:08] LABS: BETA-2 GLYCOPROTEIN I ABY IGA <9 (0-25); BETA-2 GLYCOPROTEIN I ABY IGG <9 (0-20); BETA-2 GLYCOPROTEIN I ABY IGM <9 (0-32); CARDIOLIPIN IGA ANTIBODY <9 APL U/mL (0-11); CARDIOLIPIN IGG ANTIBODY <9 GPL U/mL (0-14); CARDIOLIPIN IGM ANTIBODY <9 MPL U/mL (0-12)
== END ==
LOC: M PLALAB 08:24
PROVIDERS: ATTEND Family Medicine
DX: M32.9 Systemic lupus erythematosus, unspecified (principal); K75.89 Other specified inflammatory liver diseases

== ENCOUNTER → 2022-10-09 | Outpatient (CLI) | payer MEDICARE, MEDICAID ==
[~2022-10-09] MED LIST changes: -HYDR200T3; -HYDR200T3 PO; +HYDR200T46; +HYDR200T46 PO
== END ==
LOC: M WHC 12:31
PROVIDERS: ATTEND Family Medicine
DX: N63.23 Unspecified lump in the left breast, lower outer quadrant (principal); N60.12 Diffuse cystic mastopathy of left breast
CPT/HCPCS: 76642; 77066; G0279

== ENCOUNTER → 2023-01-16 | Outpatient (REF) | payer MEDICARE, MEDICAID | LOC: M SFHCPLAZ 13:16 | PROVIDERS: ATTEND Family Medicine | DX: M32.9 Systemic lupus erythematosus, unspecified (principal) ==

== ENCOUNTER → 2023-01-16 | Outpatient (CLI) | payer MEDICARE, MEDICAID | LOC: M PLAIMG 13:17 | PROVIDERS: ATTEND Family Medicine | DX: M47.816 Spondylosis without myelopathy or radiculopathy, lumbar region (principal) ==

== ENCOUNTER → 2023-01-19 | Outpatient (REF) | payer MEDICARE, MEDICAID | LOC: M SFHCPLAZ 08:30 | PROVIDERS: ATTEND Family Medicine | DX: M32.9 Systemic lupus erythematosus, unspecified (principal); Z53.9 Procedure and treatment not carried out, unspecified reason ==

== ENCOUNTER → 2023-06-19 | Outpatient (CLI) | payer MEDICARE, MEDICAID ==
[2023-06-19 16:04] LABS: BASO # 0.1 10^3/uL (0.0-0.2); BASO % 0.6 % (0.0-1.0); EOS # 0.2 10^3/uL (0.0-0.5); EOS % 1.9 % (0.0-3.0); HEMATOCRIT 47.2 % (36.0-47.0); HEMOGLOBIN 15.1 g/dl (12.0-15.5); LYMPH # 2.1 10^3/uL (1.5-5.0); LYMPH % 25.3 % (24.0-44.0); MEAN CORPUSCULAR HEMOGLOBIN 26.5 pg (27.0-33.0); MONO # 0.6 10^3/uL (0.0-0.8); MONO % 7.2 % (2.0-8.0); NEUTROPHILS # 5.3 10^3/uL (1.5-8.5); NEUTROPHILS % 64.9 % (36.0-66.0); PLATELET COUNT, AUTOMATED 339 10^3/uL (150-450); RED BLOOD COUNT 5.69 10^6/uL (4.00-5.40); WHITE BLOOD COUNT 8.2 10^3/uL (4.0-10.0)
[2023-06-19 16:33] LABS: ALBUMIN 4.6 G/DL (3.2-5.2); ALKALINE PHOSPHATASE 91 U/L (46-116); ALT/SGPT 23 U/L (7.0-40); AST/SGOT 13 U/L (<34); BILIRUBIN,TOTAL 0.3 MG/DL (0.3-1.2); BLOOD UREA NITROGEN 13 MG/DL (9-23); CALCIUM LEVEL 9.9 MG/DL (8.5-10.1); CARBON DIOXIDE LEVEL 29 MMOL/L (20-31); CHLORIDE LEVEL 103 MMOL/L (98-107); CREATININE FOR GFR 0.72 MG/DL (0.55-1.30); CREATININE,RANDOM URINE 42.9 MG/DL; GLOMERULAR FILTRATION RATE > 60.0 (>58); GLUCOSE, FASTING 90 MG/DL (60-100); POTASSIUM SERUM 4.6 MMOL/L (3.5-5.1); SODIUM LEVEL 137 MMOL/L (136-145); TOTAL PROTEIN 7.7 G/DL (5.7-8.2)
[2023-06-19 16:37] LABS: TOTAL PROTEIN,RANDOM URINE < 6.0 MG/DL (0.0-14.0)
[2023-06-19 16:40] LABS: LUTEINIZING HORMONE 51.8 mIU/ML
[2023-06-19 16:41] LABS: ESTRADIOL 28.4 PG/ML; FREE T4 0.86 NG/DL (0.89-1.76)
== END ==
LOC: M PLALAB 13:22
PROVIDERS: ATTEND Family Medicine
DX: N93.9 Abnormal uterine and vaginal bleeding, unspecified (principal); M32.9 Systemic lupus erythematosus, unspecified

== ENCOUNTER → 2023-06-19 | Outpatient (REF) | payer MEDICARE, MEDICAID | LOC: M SFHCPLAZ 13:12 | PROVIDERS: ATTEND Family Medicine | DX: M32.9 Systemic lupus erythematosus, unspecified (principal); N93.9 Abnormal uterine and vaginal bleeding, unspecified; E28.39 Other primary ovarian failure ==

== ENCOUNTER → 2023-08-21 | Outpatient (CLI) | payer MEDICARE, MEDICAID | LOC: M WHC 12:51 | PROVIDERS: ATTEND Family Medicine | DX: E28.39 Other primary ovarian failure (principal); M85.851 Other specified disorders of bone density and structure, right thigh; M85.852 Other specified disorders of bone density and structure, left thigh ==

== ENCOUNTER → 2023-12-15 | Outpatient (REF) | payer MEDICARE, MEDICAID ==
[~2023-12-15] MED LIST changes: +DOXY-323 PO; -DOXY-443 PO
== END ==
LOC: M SFHCPLAZ 13:04
PROVIDERS: ATTEND Family Medicine
DX: M32.9 Systemic lupus erythematosus, unspecified (principal); E28.39 Other primary ovarian failure

== ENCOUNTER → 2024-01-26 | Outpatient (CLI) | payer MEDICARE, MEDICAID ==
[2024-01-26 13:13] LABS: BASO # 0.1 10^3/uL (0.0-0.2); BASO % 0.5 % (0.0-1.0); EOS # 0.1 10^3/uL (0.0-0.5); EOS % 0.9 % (0.0-3.0); HEMOGLOBIN 14.9 g/dl (12.0-15.5); LYMPH # 2.3 10^3/uL (1.5-5.0); LYMPH % 19.5 % (24.0-44.0); MEAN CORPUSCULAR HEMOGLOBIN 26.7 pg (27.0-33.0); MEAN CORPUSCULAR HGB CONC 31.7 g/dl (32.0-36.5); MEAN CORPUSCULAR VOLUME 84.1 fl (80.0-96.0); MONO # 0.8 10^3/uL (0.0-0.8); MONO % 6.4 % (2.0-8.0); NEUTROPHILS # 8.6 10^3/uL (1.5-8.5); NEUTROPHILS % 72.4 % (36.0-66.0); PLATELET COUNT, AUTOMATED 344 10^3/uL (150-450); RED BLOOD COUNT 5.59 10^6/uL (4.00-5.40); WHITE BLOOD COUNT 11.9 10^3/uL (4.0-10.0)
[2024-01-26 13:19] LABS: C REACTIVE PROTEIN QUANTITATIV < 0.40 MG/DL (<1.0)
[2024-01-26 13:21] LABS: ALBUMIN 3.9 G/DL (3.2-5.2); ALKALINE PHOSPHATASE 82 U/L (46-116); ALT/SGPT 25 U/L (7.0-40); AST/SGOT 14 U/L (<34); BILIRUBIN,TOTAL 0.3 MG/DL (0.3-1.2); BLOOD UREA NITROGEN 15 MG/DL (9-23); CALCIUM LEVEL 9.6 MG/DL (8.5-10.1); CARBON DIOXIDE LEVEL 29 MMOL/L (20-31); CHLORIDE LEVEL 106 MMOL/L (98-107); CHOLESTEROL LEVEL 158 MG/DL (<200); COMPLEMENT C3 133.6 MG/DL (90.0-170.0); COMPLEMENT C4 19.6 MG/DL (12-36); CREATININE FOR GFR 0.81 MG/DL (0.55-1.30); FREE T4 1.08 NG/DL (0.89-1.76); GLOMERULAR FILTRATION RATE > 60.0 (>58); GLUCOSE, FASTING 94 MG/DL (60-100); HDL CHOLESTEROL 63.1 MG/DL (>40); LDL CHOLESTEROL 81.9 MG/DL (<100); NON-HDL-C 94.9 MG/DL; PTH INTACT 65.8 PG/ML (18.5-88.0); SODIUM LEVEL 139 MMOL/L (136-145); THYROID STIMULATING HORMONE 2.038 uIU/ML (0.55-4.78); TOTAL PROTEIN 7.3 G/DL (5.7-8.2); TRIGLYCERIDES LEVEL 65 MG/DL (<150)
[2024-01-26 13:23] LABS: TOTAL 25(OH) VITAMIN D 20.5 NG/ML (20.0-100.0)
[2024-01-26 13:29] LABS: ERYTHROCYTE SEDIMENTATION RATE 26 mm/hr (0-20)
[2024-01-26 13:45] LABS: CREATININE,RANDOM URINE 82.6 MG/DL
== END ==
LOC: M WUC 09:32
PROVIDERS: ATTEND Family Medicine
DX: M32.9 Systemic lupus erythematosus, unspecified (principal); E78.00 Pure hypercholesterolemia, unspecified

== ENCOUNTER → 2024-02-18 | Outpatient (CLI) | payer MEDICARE, MEDICAID ==
[~2024-02-18] MED LIST changes: -DOXY-323 PO; +DOXY-441 PO
== END ==
LOC: M WHC 08:03
PROVIDERS: ATTEND Family Medicine
DX: K76.89 Other specified diseases of liver (principal); Z90.49 Acquired absence of other specified parts of digestive tract; K76.0 Fatty (change of) liver, not elsewhere classified

== ENCOUNTER → 2024-03-10 | Outpatient (CLI) | payer MEDICARE, MEDICAID ==
[2024-03-10 13:40] LABS: BASO # 0.1 10^3/uL (0.0-0.2); BASO % 0.5 % (0.0-1.0); EOS # 0.1 10^3/uL (0.0-0.5); EOS % 0.6 % (0.0-3.0); HEMATOCRIT 48.6 % (36.0-47.0); HEMOGLOBIN 15.1 g/dl (12.0-15.5); LYMPH # 2.3 10^3/uL (1.5-5.0); LYMPH % 21.4 % (24.0-44.0); MEAN CORPUSCULAR HEMOGLOBIN 26.1 pg (27.0-33.0); MEAN CORPUSCULAR HGB CONC 31.1 g/dl (32.0-36.5); MEAN CORPUSCULAR VOLUME 83.9 fl (80.0-96.0); MONO # 0.7 10^3/uL (0.0-0.8); NEUTROPHILS # 7.8 10^3/uL (1.5-8.5); NEUTROPHILS % 71.1 % (36.0-66.0); PLATELET COUNT, AUTOMATED 344 10^3/uL (150-450); RED BLOOD COUNT 5.79 10^6/uL (4.00-5.40); WHITE BLOOD COUNT 10.9 10^3/uL (4.0-10.0)
[2024-03-10 14:13] LABS: ALBUMIN 3.9 G/DL (3.2-5.2); ALKALINE PHOSPHATASE 76 U/L (35-104); ALT/SGPT 23 U/L (7.0-40); AST/SGOT 11 U/L (<34); BILIRUBIN,TOTAL 0.3 MG/DL (0.3-1.2); BLOOD UREA NITROGEN 12 MG/DL (9-23); CALCIUM LEVEL 10.4 MG/DL (8.5-10.1); CARBON DIOXIDE LEVEL 29 MMOL/L (20-31); CHLORIDE LEVEL 106 MMOL/L (98-107); CREATININE FOR GFR 0.78 MG/DL (0.55-1.30); GLOMERULAR FILTRATION RATE > 60.0 (>58); GLUCOSE, FASTING 93 MG/DL (60-100); POTASSIUM SERUM 4.4 MMOL/L (3.5-5.1); SODIUM LEVEL 141 MMOL/L (136-145); TOTAL PROTEIN 7.6 G/DL (5.7-8.2)
[2024-03-10 14:32] LABS: HEPATITIS B SURFACE ANTIGEN NEGATIVE (NEGATIVE)
[2024-03-10 14:53] LABS: HEPATITIS C VIRUS ABY INDEX < 0.02 INDEX (<0.8)
[2024-03-15 10:39] LABS: QuantiFERON-TB Gold Plus NEGATIVE (NEGATIVE)
== END ==
LOC: M PLALAB 10:38
PROVIDERS: ATTEND Physician Assistant
DX: M32.9 Systemic lupus erythematosus, unspecified (principal)

== ENCOUNTER 2024-06-05 10:24 | Emergency (ER) | payer MEDICARE, MEDICAID ==
[~2024-06-05] VITALS: Ht 162.6 cm; Wt 75.1 kg
[2024-06-05] MEDS ORDERED: PRED1TABL (10:42)
[2024-06-05] MEDS ORDERED: FOLI1TAB11 PO (10:42)
[2024-06-05] MEDS ORDERED: TACR0.1O4 (10:42)
[2024-06-05] MEDS ORDERED: METH2.5T48 (10:42)
[2024-06-05 12:43] LABS: BASO % 0.8 % (0.0-1.0); EOS % 0.4 % (0.0-3.0); HEMATOCRIT 46.6 % (36.0-47.0); HEMOGLOBIN 15.6 g/dl (12.0-15.5); LYMPH # 1.2 10^3/uL (1.5-5.0); LYMPH % 25.4 % (24.0-44.0); MEAN CORPUSCULAR HEMOGLOBIN 27.2 pg (27.0-33.0); MEAN CORPUSCULAR HGB CONC 33.5 g/dl (32.0-36.5); MEAN CORPUSCULAR VOLUME 81.3 fl (80.0-96.0); MONO # 0.6 10^3/uL (0.0-0.8); NEUTROPHILS # 2.9 10^3/uL (1.5-8.5); PLATELET COUNT, AUTOMATED 271 10^3/uL (150-450); RED BLOOD COUNT 5.73 10^6/uL (4.00-5.40); WHITE BLOOD COUNT 4.8 10^3/uL (4.0-10.0)
[2024-06-05 12:46] LABS: ERYTHROCYTE SEDIMENTATION RATE 34 mm/hr (0-20)
[2024-06-05] MEDS: NAPROXEN 250 MG TAB PO ONE (13:03)
[2024-06-05 13:08] LABS: C REACTIVE PROTEIN QUANTITATIV 1.09 MG/DL (<1.0)
[2024-06-05 13:11] LABS: BLOOD UREA NITROGEN 14 MG/DL (9-23); CALCIUM LEVEL 9.3 MG/DL (8.5-10.1); CARBON DIOXIDE LEVEL 24 MMOL/L (20-31); CHLORIDE LEVEL 106 MMOL/L (98-107); CREATININE FOR GFR 0.82 MG/DL (0.55-1.30); GLOMERULAR FILTRATION RATE > 60.0 (>58); GLUCOSE, FASTING 85 MG/DL (60-100); POTASSIUM SERUM 4.4 MMOL/L (3.5-5.1); SODIUM LEVEL 139 MMOL/L (136-145)
[2024-06-05] MEDS ORDERED: PRED20TA PO (13:23)
[2024-06-05] MEDS ORDERED: NAPR-837 PO (13:23)
[2024-06-05 13:29] VITALS: BP 128/86; TEMP 97.2; O2SAT 98
== END 2024-06-05 13:33 | disposition home or self-care (01) ==
LOC: M ED 10:24
DX: M25.532 Pain in left wrist (principal); M10.032 Idiopathic gout, left wrist; K21.9 Gastro-esophageal reflux disease without esophagitis; M32.9 Systemic lupus erythematosus, unspecified; F17.210 Nicotine dependence, cigarettes, uncomplicated; Z88.5 Allergy status to narcotic agent; Z88.8 Allergy status to other drugs, medicaments and biological substances; Z79.52 Long term (current) use of systemic steroids; Z79.899 Other long term (current) drug therapy

== ENCOUNTER 2024-06-25 13:05 | Emergency (ER) | payer MEDICARE, MEDICAID ==
[~2024-06-25 13:05] MED LIST changes: +FOLI1TAB11 PO; +METH2.5T48; +NAPR-837 PO; +PRED1TABL; +PRED20TA PO; +TACR0.1O4
[2024-06-25 13:32] VITALS: BP 124/85; O2SAT 100
== END 2024-06-25 14:37 | disposition left against medical advice (07) ==
LOC: M ED 13:05 → EDBD 13:05 → M ED 14:37
DX: Z53.21 Procedure and treatment not carried out due to patient leaving prior to being seen by health care provider (principal)

== ENCOUNTER → 2024-08-11 | Outpatient (CLI) | payer MEDICARE, MEDICAID ==
[2024-08-11 17:47] LABS: ALBUMIN 4.1 G/DL (3.2-5.2); ALKALINE PHOSPHATASE 89 U/L (35-104); ALT/SGPT 34 U/L (7.0-40); AST/SGOT 20 U/L (<34); BILIRUBIN,TOTAL 0.5 MG/DL (0.3-1.2); BLOOD UREA NITROGEN 11 MG/DL (9-23); CARBON DIOXIDE LEVEL 29 MMOL/L (20-31); CHLORIDE LEVEL 106 MMOL/L (98-107); CREATININE FOR GFR 0.77 MG/DL (0.55-1.30); GLOMERULAR FILTRATION RATE > 90.0 (>58); GLUCOSE, FASTING 83 MG/DL (60-100); POTASSIUM SERUM 4.4 MMOL/L (3.5-5.1); PTH INTACT 63.7 PG/ML (18.5-88.0); RHEUMATOID FACTOR QUANT < 3.5 IU/ML (<14); SODIUM LEVEL 140 MMOL/L (136-145); TOTAL PROTEIN 7.5 G/DL (5.7-8.2)
[2024-08-11 17:48] LABS: C REACTIVE PROTEIN QUANTITATIV < 0.50 MG/DL (<1.0); COMPLEMENT C3 177.1 MG/DL (90.0-170.0); FREE T4 1.15 NG/DL (0.89-1.76)
[2024-08-11 17:49] LABS: FOLLICLE STIMULATING HORMONE 145.7 mIU/ML; LUTEINIZING HORMONE 39.7 mIU/ML; THYROID STIMULATING HORMONE 1.888 uIU/ML (0.55-4.78); TOTAL 25(OH) VITAMIN D 15.6 NG/ML (20.0-100.0)
[2024-08-11 17:50] LABS: APPEARANCE, URINE HAZY (CLEAR); BACTERIA, URINE AUTO NEGATIVE (NEGATIVE); BILIRUBIN, URINE AUTO NEGATIVE (NEGATIVE); BLOOD, URINE BLOOD NEGATIVE (NEGATIVE); COLOR, URINE YELLOW (YELLOW); GLUCOSE, URINE (UA) AUTO NEGATIVE (NEGATIVE); KETONE, URINE AUTO NEGATIVE (NEGATIVE); LEUKOCYTE ESTERASE, URINE AUTO 3+ (NEGATIVE); MUCUS, URINE SMALL (NEGATIVE); NITRITE, URINE AUTO NEGATIVE (NEGATIVE); PROTEIN, URINE AUTO NEGATIVE (NEGATIVE); RBC, URINE AUTO 1 /HPF (0-3); SPECIFIC GRAVITY URINE AUTO 1.013 (1.002-1.035); SQUAMOUS EPITHELIAL CELL UR AU 7 /HPF (0-6); UROBILINOGEN, URINE AUTO 0.2 mg/dL (0.0-2.0); WBC, URINE AUTO 15 /HPF (0-3)
[2024-08-11 17:52] LABS: BASO # 0.1 10^3/uL (0.0-0.2); BASO % 0.9 % (0.0-1.0); EOS # 0.2 10^3/uL (0.0-0.5); EOS % 2.1 % (0.0-3.0); HEMATOCRIT 46.3 % (36.0-47.0); HEMOGLOBIN 14.7 g/dl (12.0-15.5); LYMPH # 2.2 10^3/uL (1.5-5.0); LYMPH % 28.3 % (24.0-44.0); MEAN CORPUSCULAR HEMOGLOBIN 27.4 pg (27.0-33.0); MEAN CORPUSCULAR HGB CONC 31.7 g/dl (32.0-36.5); MEAN CORPUSCULAR VOLUME 86.2 fl (80.0-96.0); MONO # 0.6 10^3/uL (0.0-0.8); MONO % 7.6 % (2.0-8.0); NEUTROPHILS # 4.7 10^3/uL (1.5-8.5); NEUTROPHILS % 60.8 % (36.0-66.0); PLATELET COUNT, AUTOMATED 357 10^3/uL (150-450); RED BLOOD COUNT 5.37 10^6/uL (4.00-5.40); WHITE BLOOD COUNT 7.7 10^3/uL (4.0-10.0)
[2024-08-11 18:07] LABS: ERYTHROCYTE SEDIMENTATION RATE 28 mm/hr (0-20)
[2024-08-11 18:10] LABS: CREATININE,RANDOM URINE 123.9 MG/DL
== END ==
LOC: M PLALAB 15:36
PROVIDERS: ATTEND Family Medicine
DX: M32.9 Systemic lupus erythematosus, unspecified (principal); R23.2 Flushing; E28.39 Other primary ovarian failure; E55.9 Vitamin D deficiency, unspecified

== ENCOUNTER → 2024-08-19 | Outpatient (CLI) | payer MEDICARE, MEDICAID ==
[2024-08-19 11:08] LABS: URIC ACID 4.5 MG/DL (3.1-7.8)
[2024-08-19 11:12] LABS: COMPLEMENT C4 24.7 MG/DL (12-36)
[2024-08-19 11:13] LABS: CHOLESTEROL RISK RATIO 2.76 (<5); HDL CHOLESTEROL 49.5 MG/DL (>40); LDL CHOLESTEROL 72.5 MG/DL (<100); NON-HDL-C 87.5 MG/DL
== END ==
LOC: M PLALAB 08:48
PROVIDERS: ATTEND Family Medicine
DX: M32.9 Systemic lupus erythematosus, unspecified (principal); E78.00 Pure hypercholesterolemia, unspecified

== ENCOUNTER → 2024-11-29 | Outpatient (REF) | payer MEDICARE, MEDICAID ==
[~2024-11-29] MED LIST changes: -FLOM0.4C39 PO; +PRED-1142; -PRED1TABL; +TAMS-18 PO
== END ==
LOC: M SFHCPLAZ 02:54
PROVIDERS: ATTEND Family Medicine
DX: Z53.9 Procedure and treatment not carried out, unspecified reason (principal)

== ENCOUNTER → 2025-01-20 | Outpatient (CLI) | payer MEDICARE, MEDICAID ==
[2025-01-20 11:01] LABS: BASO # 0.1 10^3/uL (0.0-0.2); BASO % 0.6 % (0.0-1.0); EOS # 0.2 10^3/uL (0.0-0.5); EOS % 1.5 % (0.0-3.0); LYMPH # 1.9 10^3/uL (1.5-5.0); LYMPH % 15.5 % (24.0-44.0); MONO # 0.7 10^3/uL (0.0-0.8); MONO % 6.0 % (2.0-8.0); NEUTROPHILS # 9.3 10^3/uL (1.5-8.5); NEUTROPHILS % 76.1 % (36.0-66.0); PLATELET COUNT, AUTOMATED 323 10^3/uL (150-450)
[2025-01-20 11:07] LABS: ALT/SGPT 24.0 U/L (7.0-40); AST/SGOT 17.0 U/L (<34); C REACTIVE PROTEIN QUANTITATIV 3.05 MG/DL (<1.0); CALCIUM LEVEL 9.9 MG/DL (8.5-10.1); CARBON DIOXIDE LEVEL 27.0 MMOL/L (20-31); CHLORIDE LEVEL 107.0 MMOL/L (98-107); CREATININE FOR GFR 0.91 MG/DL (0.55-1.30); GLOMERULAR FILTRATION RATE 79.3 (>58); POTASSIUM SERUM 4.0 MMOL/L (3.5-5.1); PTH INTACT 57.3 PG/ML (18.5-88.0); RHEUMATOID FACTOR QUANT 5.6 IU/ML (<14); SODIUM LEVEL 141.0 MMOL/L (136-145)
[2025-01-20 11:09] LABS: TOTAL 25(OH) VITAMIN D 20.9 NG/ML (20.0-100.0); VITAMIN B12 LEVEL 402.0 PG/ML (211-911)
[2025-01-20 11:13] LABS: ERYTHROCYTE SEDIMENTATION RATE 44 mm/hr (0-20)
[2025-01-20 11:27] LABS: TOTAL PROTEIN,RANDOM URINE 43.8 MG/DL (0.0-14.0)
[2025-01-20 19:36] LABS: APPEARANCE, URINE CLOUDY (CLEAR); BACTERIA, URINE AUTO NEGATIVE (NEGATIVE); BILIRUBIN, URINE AUTO NEGATIVE (NEGATIVE); BLOOD, URINE BLOOD NEGATIVE (NEGATIVE); CALCIUM OXALATE CRYSTALS SMALL; GLUCOSE, URINE (UA) AUTO NEGATIVE (NEGATIVE); KETONE, URINE AUTO TRACE mg/dL (NEGATIVE); LEUKOCYTE ESTERASE, URINE AUTO NEGATIVE (NEGATIVE); MUCUS, URINE SMALL (NEGATIVE); NITRITE, URINE AUTO NEGATIVE (NEGATIVE); PROTEIN, URINE AUTO NEGATIVE (NEGATIVE); RBC, URINE AUTO 0 /HPF (0-3); SPECIFIC GRAVITY URINE AUTO 1.031 (1.002-1.035); SQUAMOUS EPITHELIAL CELL UR AU 2 /HPF (0-6); UROBILINOGEN, URINE AUTO 2.0 mg/dL (0.0-2.0); WBC, URINE AUTO 2 /HPF (0-3)
[2025-01-21 11:01] LABS: PROTEIN, TOTAL SO 6.8 g/dL (6.1-8.1)
== END ==
LOC: M PLAIMG 08:13
PROVIDERS: ATTEND Family Medicine
DX: M32.9 Systemic lupus erythematosus, unspecified (principal); D50.9 Iron deficiency anemia, unspecified; E55.9 Vitamin D deficiency, unspecified; M25.751 Osteophyte, right hip; M25.752 Osteophyte, left hip; R23.2 Flushing

== ENCOUNTER → 2025-02-16 | Outpatient (CLI) | payer MEDICAID, MEDICARE | LOC: M RAD 09:53 | PROVIDERS: ATTEND Family Medicine | DX: K76.89 Other specified diseases of liver (principal) ==